=== PATIENT | male | born 1945 | race Caucasian/White ===

== ENCOUNTER 2020-06-30 09:53 | Outpatient (REF) | payer MEDICARE, SELFPAY ==
--- NOTE | 2020-06-30 09:53 | XR_ITS ---
EXAMINATION: XR PELVIS CLINICAL INFORMATION: Hip pain. COMPARISON: Pelvis of 01/08/2019 TECHNIQUE: AP film of the pelvis. FINDINGS: There is no evidence of acute fracture or diastasis of the pelvis. Patient is status post right total hip arthroplasty without abnormality of the prosthetic device seen and no evidence of loosening. There is severe degenerative change of the left hip with loss of hip joint space axially and inferiorly with collar spurring and subchondral cyst formation. No femoral head collapse is seen. No destructive lytic or sclerotic lesions noted. There is degenerative change of the lower lumbar spine present L4-L5 and L5-S1. No significant sacroiliac joint abnormality is appreciated. XR/XR pelvis 1-2V IMPRESSION: Status post right total hip arthroplasty without abnormality appreciated. Severe degenerative change of the left hip, as described.
== END 2020-06-30 09:54 | disposition home or self-care (01) ==
LOC: HO.HOSX 09:53
PROVIDERS: Visit Provider Orthopaedic Surgery
DX: M16.12 Unilateral primary osteoarthritis, left hip (principal); Z79.899 Other long term (current) drug therapy; Z96.641 Presence of right artificial hip joint
CPT/HCPCS: 72170; 99212

== ENCOUNTER 2020-07-11 07:38 | Outpatient (REF) | payer MEDICARE, SELFPAY ==
[2020-07-11 11:15] LABS: MANUAL DIFF FLAG NO
[2020-07-11 11:29] LABS: Basophils Absolute Auto 0.1 X10*3/uL (0.0-0.2); Basophils Percent Auto 0.8 % (0-2); Eosinophils Absolute Auto 0.2 X10*3/uL (0.0-0.4); Eosinophils Percent Auto 3.3 % (0-4); Hematocrit 41.5 % (42-52); Hemoglobin 13.2 g/dl (14.0-18.0); Imm Gran Abs Auto 0.01 X10*3/uL (0.00-0.03); Imm Gran Pct Auto 0.2 % (0.0-0.4); Lymphocytes Absolute Auto 1.9 X10*3/uL (1.2-4.9); Lymphocytes Percent Auto 30.6 % (20-40); Mean Corpuscular HGB Conc 31.8 g/dl (31.0-36.0); Mean Corpuscular Hemoglobin 29.9 pg (27.0-33.0); Mean Corpuscular Volume 94.1 fL (80-98); Mean Platelet Volume 11.7 fL (9.4-12.4); Monocytes Absolute Auto 0.5 X10*3/uL (0.1-1.2); Monocytes Percent Auto 7.7 % (2-11); Neutrophils Absolute Auto 3.5 X10*3/uL (2.0-8.3); Neutrophils Percent Auto 57.4 % (45-73); Platelet Count 217 X10*3/uL (160-400); Red Blood Count 4.41 X10*6/uL (4.60-5.80); Red Cell Distribution Width 13.2 % (11.0-16.0); White Blood Count 6.1 X10*3/uL (4.8-10.8)
[2020-07-11 11:35] LABS: Estimated Average Glucose 105 mg/dL; Hemoglobin A1c % 5.3 %
[2020-07-11 11:55] LABS: Glucose Urine UA NEG (NEG); Leukocyte Esterase Urine NEG (NEG); Nitrite Urine NEG (NEG); Specific Gravity - Urine 1.025 (1.005-1.025); Urine Blood NEG (NEG); Urine Ketones NEG (NEG); Urine Protein NEG (NEG-TRACE)
[2020-07-11 12:05] LABS: Appearance Urine CLEAR; Color Urine YELLOW
[2020-07-11 12:15] LABS: Alanine Aminotransferase 21 U/L (0-40); Albumin Level 4.3 g/dL (3.5-5.0); Alkaline Phosphatase 60 U/L (39-117); Anion Gap 14 (12-20); Aspartate Amino Transferase 18 U/L (5-37); Bilirubin Total 0.6 mg/dL (0.0-1.0); Blood Urea Nitrogen 18 mg/dL (9-16); Calcium 9.1 mg/dL (8.4-10.2); Carbon Dioxide 27 mmol/L (22-29); Chloride 105 mmol/L (96-108); Cholesterol 208 mg/dL; Estimated Glomerular Filt Rate > 60; Glucose Fasting 97 mg/dL (60-99); HDL Cholesterol 68 mg/dL; LDL Cholesterol Calculated 122 mg/dl; Potassium 4.7 mmol/l (3.3-5.1); Sodium 141 mmol/L (135-145); Total Protein 6.8 g/dL (6.5-8.0); Triglycerides 93 mg/dL; Uric Acid 6.4 mg/dL (3.4-7.0)
[2020-07-11 12:21] LABS: Folate 10.2 ng/mL (> or = 4.0); Vitamin B12 625 pg/mL (200-900)
[2020-07-11 12:32] LABS: Mucus Urine 1+ /LPF; RBC Urine 0 /HPF (0); Squamous Epithelial Cell Urine TRACE /LPF; WBC Urine 0-2 /HPF (0-4)
[2020-07-11 12:36] LABS: TSH reflex Free T4 1.73 mIU/mL (0.32-4.0)
[2020-07-11 12:39] LABS: Erythrocyte Sedimentation Rate 10 MM/HR (0-15)
== END 2020-07-11 07:39 | disposition home or self-care (01) ==
LOC: HO.HMGCLDS 07:38
PROVIDERS: PCP Internal Medicine; Visit Provider Internal Medicine
DX: E78.5 Hyperlipidemia, unspecified (principal); I10 Essential (primary) hypertension; R73.01 Impaired fasting glucose; M10.9 Gout, unspecified; G62.9 Polyneuropathy, unspecified; E53.8 Deficiency of other specified B group vitamins; D64.9 Anemia, unspecified; F17.200 Nicotine dependence, unspecified, uncomplicated; M51.36 Other intervertebral disc degeneration, lumbar region; E66.9 Obesity, unspecified
CPT/HCPCS: 36415; 80053; 80061; 81001; 82607; 82746; 83036; 84443; 84550; 85025; 85652

== ENCOUNTER 2020-08-31 | Outpatient (REF) | payer MEDICARE, SELFPAY | END 2020-08-31 00:01 | disposition home or self-care (01) | LOC: HO.VC | PROVIDERS: Visit Provider Internal Medicine | DX: Z23 Encounter for immunization (principal) | CPT/HCPCS: 0011A ==

== ENCOUNTER 2020-09-27 | Outpatient (REF) | payer MEDICARE, SELFPAY | END 2020-09-27 00:01 | disposition home or self-care (01) | LOC: HO.VC | PROVIDERS: Visit Provider Internal Medicine | DX: Z23 Encounter for immunization (principal) | CPT/HCPCS: 0012A ==

== ENCOUNTER 2020-11-07 07:42 | Outpatient (REF) | payer MEDICARE, SELFPAY ==
[2020-11-07 11:16] LABS: MANUAL DIFF FLAG NO
[2020-11-07 11:34] LABS: Glucose Urine UA NEG (NEG); Leukocyte Esterase Urine NEG (NEG); Nitrite Urine NEG (NEG); PH 5.5 (5.0-8.0); Specific Gravity - Urine 1.025 (1.005-1.025); Urine Blood NEG (NEG); Urine Ketones NEG (NEG); Urine Protein NEG (NEG-TRACE)
[2020-11-07 11:39] LABS: Appearance Urine CLEAR; Color Urine YELLOW
[2020-11-07 11:42] LABS: Basophils Absolute Auto 0.1 X10*3/uL (0.0-0.2); Basophils Percent Auto 0.8 % (0-2); Eosinophils Absolute Auto 0.2 X10*3/uL (0.0-0.4); Hematocrit 42.2 % (42-52); Hemoglobin 13.7 g/dl (14.0-18.0); Imm Gran Abs Auto 0.01 X10*3/uL (0.00-0.03); Imm Gran Pct Auto 0.2 % (0.0-0.4); Lymphocytes Absolute Auto 2.1 X10*3/uL (1.2-4.9); Mean Corpuscular HGB Conc 32.5 g/dl (31.0-36.0); Mean Corpuscular Hemoglobin 30.6 pg (27.0-33.0); Mean Corpuscular Volume 94.2 fL (80-98); Mean Platelet Volume 11.6 fL (9.4-12.4); Monocytes Absolute Auto 0.5 X10*3/uL (0.1-1.2); Monocytes Percent Auto 8.9 % (2-11); Neutrophils Absolute Auto 3.2 X10*3/uL (2.0-8.3); Neutrophils Percent Auto 53.1 % (45-73); Platelet Count 216 X10*3/uL (160-400); Red Blood Count 4.48 X10*6/uL (4.60-5.80); Red Cell Distribution Width 12.8 % (11.0-16.0); White Blood Count 6.1 X10*3/uL (4.8-10.8)
[2020-11-07 11:47] LABS: Alanine Aminotransferase 22 U/L (0-40); Albumin Level 4.5 g/dL (3.5-5.0); Alkaline Phosphatase 63 U/L (39-117); Anion Gap 16 (12-20); Aspartate Amino Transferase 18 U/L (5-37); Bilirubin Total 0.7 mg/dL (0.0-1.0); Blood Urea Nitrogen 25 mg/dL (9-16); Calcium 9.1 mg/dL (8.4-10.2); Carbon Dioxide 23 mmol/L (22-29); Chloride 108 mmol/L (96-108); Cholesterol 234 mg/dL; Estimated Glomerular Filt Rate > 60; Glucose Fasting 101 mg/dL (60-99); HDL Cholesterol 63 mg/dL; LDL Cholesterol Calculated 147 mg/dl; Potassium 4.7 mmol/L (3.3-5.1); Sodium 142 mmol/L (135-145); Total Protein 7.2 g/dL (6.5-8.0); Triglycerides 123 mg/dL; Uric Acid 7.1 mg/dL (3.4-7.0)
== END 2020-11-07 07:43 | disposition home or self-care (01) ==
LOC: HO.HMGCLDS 07:42
PROVIDERS: PCP Internal Medicine; Visit Provider Internal Medicine
DX: I10 Essential (primary) hypertension (principal); M10.9 Gout, unspecified; E66.9 Obesity, unspecified; R73.01 Impaired fasting glucose; E78.00 Pure hypercholesterolemia, unspecified; D64.9 Anemia, unspecified; G62.9 Polyneuropathy, unspecified; F17.200 Nicotine dependence, unspecified, uncomplicated
CPT/HCPCS: 36415; 80053; 80061; 81003; 84443; 84550; 85025

== ENCOUNTER 2021-05-16 07:25 | Outpatient (REF) | payer MEDICARE, SELFPAY ==
[2021-05-16 11:43] LABS: MANUAL DIFF FLAG NO
[2021-05-16 11:47] LABS: Basophils Absolute Auto 0.1 X10*3/uL (0.0-0.2); Basophils Percent Auto 0.9 % (0-2); Eosinophils Absolute Auto 0.2 X10*3/uL (0.0-0.4); Eosinophils Percent Auto 3.3 % (0-4); Hematocrit 40.1 % (42-52); Hemoglobin 13.2 g/dl (14.0-18.0); Imm Gran Abs Auto 0.02 X10*3/uL (0.00-0.03); Imm Gran Pct Auto 0.4 % (0.0-0.4); Lymphocytes Absolute Auto 1.6 X10*3/uL (1.2-4.9); Lymphocytes Percent Auto 29.1 % (20-40); Mean Corpuscular HGB Conc 32.9 g/dl (31.0-36.0); Mean Corpuscular Hemoglobin 30.3 pg (27.0-33.0); Mean Corpuscular Volume 92.2 fL (80-98); Mean Platelet Volume 11.8 fL (9.4-12.4); Monocytes Absolute Auto 0.5 X10*3/uL (0.1-1.2); Monocytes Percent Auto 8.5 % (2-11); Neutrophils Absolute Auto 3.2 X10*3/uL (2.0-8.3); Neutrophils Percent Auto 57.8 % (45-73); Platelet Count 204 X10*3/uL (160-400); Red Blood Count 4.35 X10*6/uL (4.60-5.80); Red Cell Distribution Width 12.9 % (11.0-16.0); White Blood Count 5.5 X10*3/uL (4.8-10.8)
[2021-05-16 12:05] LABS: Appearance Urine CLEAR; Color Urine YELLOW; Glucose Urine UA NEG (NEG); Leukocyte Esterase Urine NEG (NEG); Nitrite Urine NEG (NEG); Specific Gravity - Urine 1.025 (1.005-1.025); UACC Culture Trigger NO; Urine Blood 3+ (NEG); Urine Ketones NEG (NEG); Urine Protein NEG (NEG-TRACE)
[2021-05-16 12:07] LABS: Estimated Average Glucose 103 mg/dL; Hemoglobin A1c % 5.2 %
[2021-05-16 12:24] LABS: TSH reflex Free T4 2.32 uIU/mL (0.32-4.0)
[2021-05-16 12:28] LABS: Mucus Urine 2+ /LPF; Squamous Epithelial Cell Urine TRACE /LPF; WBC Urine 0 /HPF (0-4)
[2021-05-16 12:30] LABS: Alanine Aminotransferase 21 U/L (0-40); Albumin Level 4.5 g/dL (3.5-5.0); Alkaline Phosphatase 58 U/L (39-117); Anion Gap 12 (12-20); Aspartate Amino Transferase 22 U/L (5-37); Bilirubin Total 0.6 mg/dL (0.0-1.0); Blood Urea Nitrogen 22 mg/dL (9-16); Calcium 9.5 mg/dL (8.4-10.2); Carbon Dioxide 25 mmol/L (22-29); Chloride 111 mmol/L (96-108); Cholesterol 196 mg/dL; Estimated Glomerular Filt Rate > 60; Glucose Fasting 102 mg/dL (60-99); HDL Cholesterol 55 mg/dL; LDL Cholesterol Calculated 125 mg/dl; Potassium 4.5 mmol/L (3.3-5.1); Sodium 143 mmol/L (135-145); Total Protein 6.8 g/dL (6.5-8.0); Triglycerides 82 mg/dL; Uric Acid 6.7 mg/dL (3.4-7.0)
[2021-05-16 12:38] LABS: Folate 11.8 ng/mL (> or = 4.0); Vitamin B12 803 pg/mL (200-900)
== END 2021-05-16 07:26 | disposition home or self-care (01) ==
LOC: HO.HMGCLDS 07:25
PROVIDERS: PCP Internal Medicine; Visit Provider Internal Medicine
DX: R73.01 Impaired fasting glucose (principal); D64.9 Anemia, unspecified; F17.200 Nicotine dependence, unspecified, uncomplicated; I10 Essential (primary) hypertension; E78.00 Pure hypercholesterolemia, unspecified; E66.9 Obesity, unspecified; G62.9 Polyneuropathy, unspecified; M10.9 Gout, unspecified
CPT/HCPCS: 36415; 80053; 80061; 81001; 81003; 82607; 82746; 83036; 84443; 84550; 85025

== ENCOUNTER 2021-08-07 10:38 | Outpatient (REF) | payer MEDICARE, SELFPAY ==
--- NOTE | ~2021-08-07 | XR_ITS ---
EXAMINATION: LEFT KNEE AND LEFT LOWER LEG X-RAY CLINICAL INFORMATION: Pain COMPARISON: None TECHNIQUE: 4 views of the left knee and 2 views of the left lower lobe thick FINDINGS: Left knee: Bone alignment is normal. No fracture or dislocation is seen. There is arthritis at the medial femoral tibial and patellofemoral joints with joint space narrowing and osteophyte formation. There is a small joint effusion. Left lower leg: Bone alignment is normal. No fracture or dislocation is seen. Joint spaces are normal. Soft tissues are normal. XR/XR tibia fibula LT 2V IMPRESSION: Left knee: Mild degenerative changes. Left lower leg: Unremarkable exam.
--- NOTE | ~2021-08-07 | XR_ITS ---
EXAMINATION: LEFT KNEE AND LEFT LOWER LEG X-RAY CLINICAL INFORMATION: Pain COMPARISON: None TECHNIQUE: 4 views of the left knee and 2 views of the left lower lobe thick FINDINGS: Left knee: Bone alignment is normal. No fracture or dislocation is seen. There is arthritis at the medial femoral tibial and patellofemoral joints with joint space narrowing and osteophyte formation. There is a small joint effusion. Left lower leg: Bone alignment is normal. No fracture or dislocation is seen. Joint spaces are normal. Soft tissues are normal. XR/XR knee LT 4V IMPRESSION: Left knee: Mild degenerative changes. Left lower leg: Unremarkable exam.
== END 2021-08-07 10:39 | disposition home or self-care (01) ==
LOC: HO.HMGCX 10:38
PROVIDERS: PCP Internal Medicine; Visit Provider Internal Medicine
DX: M25.562 Pain in left knee (principal); M79.605 Pain in left leg
CPT/HCPCS: 73564; 73590

== ENCOUNTER 2021-11-23 07:15 | Outpatient (REF) | payer MEDICARE, SELFPAY ==
[2021-11-23 11:22] LABS: MANUAL DIFF FLAG NO
[2021-11-23 11:37] LABS: Basophils Percent Auto 0.7 % (0-2); Eosinophils Absolute Auto 0.2 X10*3/uL (0.0-0.4); Eosinophils Percent Auto 3.7 % (0-4); Hematocrit 39.4 % (42.0-52.0); Hemoglobin 12.8 g/dl (14.0-18.0); Imm Gran Abs Auto 0.01 X10*3/uL (0.00-0.03); Imm Gran Pct Auto 0.2 % (0.0-0.4); Lymphocytes Absolute Auto 1.9 X10*3/uL (1.2-4.9); Lymphocytes Percent Auto 35.2 % (20-40); Mean Corpuscular HGB Conc 32.5 g/dl (31.0-36.0); Mean Corpuscular Hemoglobin 29.8 pg (27.0-33.0); Mean Corpuscular Volume 91.8 fL (80.0-98.0); Mean Platelet Volume 11.8 fL (9.4-12.4); Monocytes Absolute Auto 0.4 X10*3/uL (0.1-1.2); Monocytes Percent Auto 6.8 % (2-11); Neutrophils Absolute Auto 2.9 x10*3/uL (2.0-8.3); Neutrophils Percent Auto 53.4 % (45-73); Platelet Count 190 X10*3/uL (160-400); Red Blood Count 4.29 X10*6/uL (4.60-5.80); Red Cell Distribution Width 12.7 % (11.0-16.0); White Blood Count 5.4 X10*3/uL (4.8-10.8)
[2021-11-23 11:41] LABS: Estimated Average Glucose 111 mg/dL; Hemoglobin A1c % 5.5 %
[2021-11-23 12:00] LABS: Alanine Aminotransferase 21 U/L (0-40); Albumin Level 4.3 g/dL (3.5-5.0); Alkaline Phosphatase 58 U/L (39-117); Anion Gap 13 (12-20); Aspartate Amino Transferase 20 U/L (5-37); Bilirubin Total 0.8 mg/dL (0.0-1.0); Blood Urea Nitrogen 23 mg/dL (9-16); Calcium 9.4 mg/dL (8.4-10.2); Carbon Dioxide 24 mmol/L (22-29); Chloride 109 mmol/L (96-108); Cholesterol 186 mg/dL; Estimated Glomerular Filt Rate > 60; Glucose Fasting 110 mg/dL (60-99); HDL Cholesterol 48 mg/dL; LDL Cholesterol Calculated 121 mg/dl; Potassium 4.6 mmol/L (3.3-5.1); Sodium 141 mmol/L (135-145); Total Protein 6.7 g/dL (6.5-8.0); Triglycerides 89 mg/dL; Uric Acid 6.5 mg/dL (3.4-7.0)
[2021-11-23 12:23] LABS: TSH reflex Free T4 1.85 uIU/mL (0.32-4.0); Vitamin D 25-OH Total 15.2 ng/mL (>30)
[2021-11-23 12:30] LABS: Appearance Urine CLEAR; Color Urine YELLOW; Glucose Urine UA NEG (NEG); Leukocyte Esterase Urine NEG (NEG); Nitrite Urine NEG (NEG); Specific Gravity - Urine 1.025 (1.005-1.025); UACC Culture Trigger NO; Urine Blood 1+ (NEG); Urine Ketones NEG (NEG); Urine Protein NEG (NEG-TRACE)
[2021-11-23 13:11] LABS: Squamous Epithelial Cell Urine TRACE /LPF
[2021-11-23 13:12] LABS: Mucus Urine 1+ /LPF; WBC Urine 0-2 /HPF (0-4)
== END 2021-11-23 07:16 | disposition home or self-care (01) ==
LOC: HO.HMGCLDS 07:15
PROVIDERS: Visit Provider Internal Medicine
DX: I10 Essential (primary) hypertension (principal); E78.00 Pure hypercholesterolemia, unspecified; R73.01 Impaired fasting glucose; M10.9 Gout, unspecified; E55.9 Vitamin D deficiency, unspecified
CPT/HCPCS: 36415; 80053; 80061; 81001; 81003; 82306; 83036; 84443; 84550; 85025

== ENCOUNTER 2021-11-30 10:18 | Outpatient (REF) | payer MEDICARE, SELFPAY ==
--- NOTE | ~2021-11-30 | XR_ITS ---
EXAMINATION: XR CHEST CLINICAL INFORMATION: Cough. COMPARISON: None TECHNIQUE: 2 views of the chest were obtained. FINDINGS: The lungs are well-expanded with platelike atelectasis in lingula. Rest of the lungs are clear. Heart size and pulmonary vascularity is normal. There is mild spondylosis dorsal spine with mild levoscoliosis. XR/XR chest 2V IMPRESSION: Platelike atelectasis in the lingula.
== END 2021-11-30 10:19 | disposition home or self-care (01) ==
LOC: HO.HMGCX 10:18
PROVIDERS: Visit Provider Nurse Practitioner Family
DX: R05.8 Other specified cough (principal)
CPT/HCPCS: 71046

== ENCOUNTER 2021-12-14 07:28 | Outpatient (REF) | payer MEDICARE, SELFPAY ==
--- NOTE | ~2021-12-14 | XR_ITS ---
EXAMINATION: XR PELVIS CLINICAL INFORMATION: M25.559 - Pain in unspecified hip COMPARISON: Radiographs pelvis 06/30/2020 TECHNIQUE: AP view of the pelvis is performed along with AP view right hip for a total of 2 views. FINDINGS: There is no fracture or dislocation or bony destructive process. Again, there are degenerative disc changes lower lumbar spine at L4-L5 with bulky right lateral bridging osteophyte. There are also disc changes L5-S1 and mild degenerative changes bilateral SI joints. There is no diastases SI joints or pubis. Left hip shows osteoarthritic changes with axial narrowing and subchondral sclerosis and osteophytes circumferentially at base femoral head and osteophytes acetabular rim. There is right hip replacement. Hardware intact. No osteolysis or destructive process. There are multiple calcified phleboliths again seen pelvis. Bowel gas unremarkable. XR/XR pelvis 1-2V IMPRESSION: -Degenerative disc changes lower lumbar spine and lumbosacral junction. -Prominent osteoarthritis left hip. -Unremarkable right hip replacement.
== END 2021-12-14 07:29 | disposition home or self-care (01) ==
LOC: HO.HOSX 07:28
PROVIDERS: Visit Provider Orthopaedic Surgery
DX: M16.12 Unilateral primary osteoarthritis, left hip (principal); M47.816 Spondylosis without myelopathy or radiculopathy, lumbar region
CPT/HCPCS: 72170; 99212

== ENCOUNTER 2022-02-07 08:00 | Outpatient (RCR) | payer MEDICARE, SELFPAY ==
--- NOTE | 2022-01-10 11:56 | MHC.PT.EP ---
[facility] [place] Office [place] Office [place] Office [address] [phone] F: [phone] F: [phone] F: [phone] F: [phone] Physical Therapy Plan of Care Date of Evaluation: Date of Surgery: Diagnosis: This is a 76 yo male presenting to skilled PT with a script for lumbar spondylosis, L hip pain Assessment: This is a 76 yo male presenting to skilled PT with a script for lumbar spondylosis, L hip pain. I am here because my doctor suggested it. L hip pain ongoing for about a year. Per patient he is probably getting a total hip replacement done. Being seen by [facility]. Pain increases with walking. He can walk for about 10-15 mins. Pain is achy and located lateral. He also reports scoliosis and anterior flor pain on the L as well. He has had a R total hip replacement about 5 years ago. He is supposed to be going to pain management as well. Assessment reveals pain that ranges up to a 8/10. He demos decreased ROM, decreased strength, impaired gait pattern and walking tolerance as well as gross functional decline with walking and standing. He is a good candidate for skilled PT 2x/wk for 4wks however wants to come to 1-2 appointments only. 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 Manual therapy to restore motion and function. Therapeutic exercise to improve strength and flexibility. Neuromuscular re-education for posture and balance. Therapeutic activities to return to functional activities of daily living. Electronically signed by: Adore Gold PT Please sign and return to therapist. Thank you for your referral.
--- NOTE | 2022-03-21 11:48 | MHC.PT.DC ---
[facility] [place] Office [place] Office [place] Office [address] [phone] F: [phone] F: [phone] F: [phone] F: [phone] Physical Therapy Discharge Report Diagnosis: This is a 76 yo male presenting to skilled PT with a script for lumbar spondylosis, L hip pain Date of Surgery: Date of Evaluation: 01/10/22 Date of Discharge: Treatments to Date: 4 Cancellations to Date: 0 No Shows to Date: 0 Discharge Status: Achieved Goals Independent with HEP Patient Elected to Stop Discharge Summary: Pt is I and compliant with HEP. Pain with amb is 6/10. He is happy with HEP and ready for d/c at this time. He notes change is minimal thus far but understands the intermediate benefits of HEP. d/c to hep at this time. Electronically signed by: Adore Gold PT Please sign and return to therapist. Thank you for your referral.
== END 2022-03-21 11:48 | disposition home or self-care (01) ==
LOC: HO.PTCHIC 08:00
PROVIDERS: PCP Internal Medicine; Visit Provider Orthopaedic Surgery
DX: M16.12 Unilateral primary osteoarthritis, left hip (principal); M47.819 Spondylosis without myelopathy or radiculopathy, site unspecified
CPT/HCPCS: 97110; 97162

== ENCOUNTER → 2022-03-16 09:19 | Outpatient (BNVA) | payer MEDICARE, SELFPAY | PROVIDERS: PCP Internal Medicine; Visit Provider Orthopaedic Surgery | DX: M16.12 Unilateral primary osteoarthritis, left hip (principal) | CPT/HCPCS: 99212 ==

== ENCOUNTER 2022-04-19 06:58 | Outpatient (REF) | payer MEDICARE, SELFPAY ==
[2022-04-19 11:15] LABS: MANUAL DIFF FLAG NO
[2022-04-19 11:24] LABS: Appearance Urine Clear; Color Urine Yellow; Glucose Urine UA Negative (Negative); Leukocyte Esterase Urine Negative (Negative); Nitrite Urine Negative (Negative); PH 6.5 (5.0-9.0); Urine Blood Negative (Negative); Urine Ketones Negative (Negative); Urine Protein Negative (Neg-Trace)
[2022-04-19 11:28] LABS: Basophils Absolute Auto 0.1 X10*3/uL (0.0-0.2); Basophils Percent Auto 0.9 % (0-2); Eosinophils Absolute Auto 0.2 X10*3/uL (0.0-0.4); Eosinophils Percent Auto 4.2 % (0-4); Hematocrit 39.8 % (42.0-52.0); Hemoglobin 13.2 g/dl (14.0-18.0); Imm Gran Abs Auto 0.01 X10*3/uL (0.00-0.03); Imm Gran Pct Auto 0.2 % (0.0-0.4); Lymphocytes Absolute Auto 1.8 X10*3/uL (1.2-4.9); Lymphocytes Percent Auto 31.6 % (20-40); Mean Corpuscular HGB Conc 33.2 g/dl (31.0-36.0); Mean Corpuscular Hemoglobin 30.5 pg (27.0-33.0); Mean Corpuscular Volume 91.9 fL (80.0-98.0); Mean Platelet Volume 11.2 fL (9.4-12.4); Monocytes Absolute Auto 0.5 X10*3/uL (0.1-1.2); Monocytes Percent Auto 7.8 % (2-11); Neutrophils Absolute Auto 3.2 x10*3/uL (2.0-8.3); Neutrophils Percent Auto 55.3 % (45-73); Platelet Count 212 X10*3/uL (160-400); Red Blood Count 4.33 X10*6/uL (4.60-5.80); Red Cell Distribution Width 12.8 % (11.0-16.0); White Blood Count 5.8 X10*3/uL (4.8-10.8)
[2022-04-19 11:31] LABS: Estimated Average Glucose 108 mg/dL; Hemoglobin A1c % 5.4 %
[2022-04-19 11:40] LABS: Alanine Aminotransferase 20 U/L (0-40); Albumin Level 4.3 g/dL (3.5-5.0); Alkaline Phosphatase 71 U/L (39-117); Anion Gap 14 (12-20); Aspartate Amino Transferase 21 U/L (5-37); Bilirubin Total 0.7 mg/dL (0.0-1.0); Blood Urea Nitrogen 27 mg/dL (9-16); Calcium 9.4 mg/dL (8.4-10.2); Carbon Dioxide 25 mmol/L (22-29); Chloride 108 mmol/L (96-108); Cholesterol 204 mg/dL; Estimated Glomerular Filt Rate > 60; Glucose Fasting 93 mg/dL (60-99); HDL Cholesterol 58 mg/dL; LDL Cholesterol Calculated 130 mg/dl; Sodium 142 mmol/L (135-145); Total Protein 6.8 g/dL (6.5-8.0); Triglycerides 80 mg/dL
[2022-04-19 12:08] LABS: TSH reflex Free T4 1.92 uIU/mL (0.32-4.0); Vitamin D 25-OH Total 22.8 ng/mL (>30)
== END 2022-04-19 06:59 | disposition home or self-care (01) ==
LOC: HO.HMGCLDS 06:58
PROVIDERS: PCP Internal Medicine; Visit Provider Internal Medicine
DX: M10.9 Gout, unspecified (principal); E78.00 Pure hypercholesterolemia, unspecified; E55.9 Vitamin D deficiency, unspecified; R73.01 Impaired fasting glucose; I10 Essential (primary) hypertension
CPT/HCPCS: 36415; 80053; 80061; 81003; 82306; 83036; 84443; 84550; 85025

== ENCOUNTER 2022-04-25 13:25 | Outpatient (REF) | payer MEDICARE, SELFPAY ==
--- NOTE | ~2022-04-25 | XR_ITS ---
EXAMINATION: XR SHOULDER, RIGHT CLINICAL INFORMATION: Right shoulder pain. COMPARISON: None TECHNIQUE: AP external rotation, Grashey, scapular Y, and axillary views of the right shoulder. FINDINGS: Prominent acromioclavicular marginal osteophytes. Small subacromial spurs. Severe glenohumeral joint space narrowing with mild bony remodeling. Marginal osteophytes and subchondral sclerosis. Calcification adjacent to the greater tuberosity measuring 0.5 cm, consistent with infraspinatus calcific tendinitis. XR/XR shoulder RT min 2V IMPRESSION: 1. Severe glenohumeral osteoarthritis. 2. Moderate acromioclavicular osteoarthritis with small subacromial spurs. 3. Mild distal infraspinatus calcific tendinitis.
--- NOTE | ~2022-04-25 | XR_ITS ---
EXAMINATION: XR CERVICAL SPINE CLINICAL INFORMATION: Neck pain. COMPARISON: None TECHNIQUE: 3 views of the cervical spine were obtained. FINDINGS: No acute fracture or subluxation. Normal vertebral body alignment. The cervical lordosis is maintained. No loss of vertebral body height. Multilevel loss of intervertebral disc height with anterior endplate osteophytes, most prominent at C5-C6 and C6-C7. Multilevel bilateral facet arthropathy. Normal atlantoaxial alignment. Unremarkable prevertebral soft tissues. XR/XR cervical spine 3V IMPRESSION: Multilevel degenerative disc disease and bilateral facet arthropathy, most prominent at C5-C6 and C6-C7.
== END 2022-04-25 13:26 | disposition home or self-care (01) ==
LOC: HO.XRAY 13:25
PROVIDERS: PCP Internal Medicine; Visit Provider Internal Medicine
DX: M25.511 Pain in right shoulder (principal); M54.2 Cervicalgia
CPT/HCPCS: 72040; 73030

== ENCOUNTER → 2022-06-04 06:53 | Outpatient (REF) | payer MEDICARE, SELFPAY ==
--- NOTE | 2022-06-04 06:54 | CA_ITS ---
Transthoracic Echocardiogram Patient (Last, First, Middle): George Borges R Gender: Male Date of : 1945 Age: 77 Procedure Date: 06/04/2022 Procedure Type: Transthoracic Echocardiogram Location: OP Height: 190.5 cm Weight: 115.67 kg BSA: 2.43 m2 Heart Rate: bpm BP: 124 / 70 mmHg Nickel Plater: Referring MD: Eugenie RED Digital Marketing Coordinator: Silas Edwards MD Symptoms: Z01.818 - Encounter for other preprocedural examination Study Quality: Fair/Contrast ECG Rhythm: Sinus Conclusions: - 1. [id number] LV systolic dysfunction with LVEF of 40-45% with grade 1 diastolic dysfunction 2. Normal cardiac valvular Doppler 3. Normal RV systolic pressure 4. No gross pericardial effusion Findings Procedure Information Contrast agent, definity, is being given per protocol without apparent complications. Left Ventricle Normal left ventricular cavity size. There is normal left ventricular wall thickness. The left ventricular systolic function is mild to moderately decreased. The visually estimated ejection fraction is between 40-45%. Spectral Doppler is indicative of an impaired relaxation filling pattern. E/E prime ratio is <8, consistent with normal filling pressures. Evidence suggests grade I (mild) diastolic dysfunction. Right Ventricle Mildly increased right ventricular cavity size. Atria The left atrium is likely dilated. Interatrial shunt cannot be excluded. The right atrium was not well visualized. Aortic Valve The aortic valve was not well visualized. There is mild calcification of the aortic valve. There is no aortic valve stenosis. There is no aortic valve regurgitation. Mitral Valve Likely normal mitral valve structure and function. There is trace mitral valve regurgitation. There is no mitral valve stenosis. Pulmonic Valve The pulmonic valve was not well visualized. Tricuspid Valve Likely normal tricuspid valve structure and function. There is no tricuspid valve regurgitation. The right ventricular systolic pressure is 18 mmHg. Normal right atrial pressure. There is no evidence of pulmonary hypertension. Great Vessels All visible segments of the aorta are normal in size. The pulmonary artery was not well visualized. Venous The inferior vena cava is normal in size and collapses greater than 50% with inspiration. Pericardium/Pleural There is no evidence of pericardial effusion. Prior Study Comparison No prior study available for comparison. Measurements 2D Linear Measurements IVSd: 1.12 0.6-0.9/0.6-1.0 cm LVIDd: 5.16 3.9-5.3/4.2-5.9 cm LVIDd Index: 2.12 2.4-3.2/2.2-3.1 cm/m2 LVIDs: 3.72 2.0-3.6 cm LVPWd: 1.18 0.7-1.1 cm Ao Root: 3.70 2.1-3.5 cm LA Diam: 3.80 2.7-3.8/3.0-4.0 cm LAIDs Index: 1.56 1.5-2.3 cm/m2 LV Mass: 288.88 67-162/88-224 g LV Mass Index: 118.88 43-95/49-115 g/m2 LVOT Diam: 2.60 3.0+(-)1.3 cm 2D Systolic Function EF 4C: 41.10 >55% EF 2C: 47.60 >55% EF BiP: 44.60 >55% Mitral Valve MV Pk E: 0.51 MV PK A: 0.75 MV Decel Time: 149.00 E/A: 0.70 E'Lateral: 4.79 E'Medial: 5.98 E/E' Med: 8.50 E/E' Lat: 10.60 PHT: 44.00 MVA PHT: 5.00 Decel Hamblen: 3.39 Aortic Valve AoV Pk Kelechi: 1.67 AoV Mn Kelechi: 1.19 AoV VTI: 0.36 AoV Pk Grad: 11.00 Aov Mn Grad: 7.00 TAYE Cont.VTI: 2.77 LVOT LVOT Pk Kelechi: 0.91 LVOT Mn Kelechi: 0.62 LVOT VTI: 0.19 LVOT Pk Grad: 3.00 LVOT Mn Grad: 2.00 LVOT Diam: 2.60 LVOT Area: 5.31 Diastolic Function MV Pk E: 0.51 MV Pk A: 0.75 E/A: 0.70 E'Medial: 5.98 E/E' Med: 8.50 E' Laterial: 4.79 E/E' Lat: 10.60 Right Ventricle TAPSE (mm): 19.00 TVS' Kelechi: 12.00 Tricuspid Valve TR Pk Kelechi: 1.93 TR Pk Grad: 15.00 RA Press: 3.00 RVSP: 18.00 Great Vessels Aorta Ao Root-2D: 3.70 2.0-3.7 cm Ao Asc: 3.40 2.1-3.4 cm Pulmonary Valve PV Pk Kelechi: 0.92 Peak PV Grad: 3.00 Updated in Other Vendor System with Status of Final Silas Edwards MD electronically signed on 06/04/2022 1:42:23 PM with status of Final
== END ==
LOC: HO.CARD 06:53
PROVIDERS: PCP Internal Medicine; Visit Provider Nurse Practitioner Family
DX: Z01.818 Encounter for other preprocedural examination (principal)
CPT/HCPCS: 93306; Q9957

== ENCOUNTER → 2022-06-11 13:18 | Outpatient (BNVA) | payer MEDICARE, SELFPAY | PROVIDERS: PCP Internal Medicine; Visit Provider Internal Medicine Cardiovascular Disease | DX: I42.9 Cardiomyopathy, unspecified (principal) | CPT/HCPCS: 99202 ==

== ENCOUNTER → 2022-06-15 10:45 | Outpatient (REF) | payer MEDICARE, SELFPAY ==
--- NOTE | 2022-06-15 10:48 | CA_ITS ---
Acquisition Time: 2022-06-15 10:57:13 Total Exercise Time: 00:04:30 Test Indications: Abnormal ECG Medications: ALLOPURINOL AMLODIPINE CELICOXIB IRBESARTAN Protocol: DOV Max HR: 150 BPM 104% of Pred: 143 BPM Max BP: 160/070 mmHG Max Work Load: 5.4 METS Exercise stress test with exercise 4 min 30 sec of Dov protocol, achieving > 100% MPHR, with mild sob, no chest discomfort, without PACs, then irregular tachycardic rhythm which appears to be PAF Vs freq PACs, with normotensive response to exercise, without EKG changes meeting criteria for ischemia. Echo images obtained by tech at rest and immediately post peak exercise. Definity contrast used. In recovery monitor continued to show irregular heart beats, asymptomatic. Once heart rate settled, it was clearly SR. Test reviewed with Dr Edwards STRESS ECHO : Technique : Images were obtained at rest and immediately post exercise within 50 seconds. Definity contrast was used to enhance endocardial definition. Images were obtained in multiple views and compared side to side. Findings : Images at rest were of borderline quality due to some off axis views. LV systolic function is mildly reduced on some views without any regional wall motion abnormalities. Post exercise HR reduced quickly in early recovery. Post exercise images are of adequate quality. Overall there is adequate augmentation of LV systolic function. There are no regional wall motion abnormalities. Conclusion : Stress echo is negative for ischemia at achieved HR and workload. Referred By: Shayne Hunter Overread By: MONIQUE EDWARDS MD
--- NOTE | 2022-06-15 12:40 | HM_ITS ---
Conclusion: 1. Patient was monitored for total period of 2 days and 22 hours 2. Baseline rhythm appears to be sinus rhythm but on some strips underlying atrial flutter/fibrillation cannot be ruled out 3. No significant pauses or bradycardia noted 4. Total of 19,726 PACs accounting for 5.6% of total beats accounting for frequent PACs 5. Patient reported event correlates with SVT/atrial flutter with 2 is to 1 conduction MTDD
== END ==
LOC: HO.CARD 10:45
PROVIDERS: PCP Internal Medicine; Visit Provider Internal Medicine Cardiovascular Disease
DX: I44.0 Atrioventricular block, first degree (principal); I49.1 Atrial premature depolarization; I42.9 Cardiomyopathy, unspecified
CPT/HCPCS: 93242; 93350; Q9957

== ENCOUNTER 2022-06-20 11:26 | Outpatient (REF) | payer MEDICARE, SELFPAY ==
--- NOTE | ~2022-06-20 | XR_ITS ---
EXAMINATION: XR HIP, LEFT CLINICAL INFORMATION: Pain COMPARISON: Previous pelvis x-ray November 2021 TECHNIQUE: Two views of the left hip and one view of the pelvis. FINDINGS: There is severe left hip arthritis with joint space narrowing, osteophyte formation and subchondral cyst formation. There is a right hip replacement in satisfactory position. No fracture or dislocation. Bones of the pelvis are normal. There are degenerative changes of the visualized lower lumbar spine. There are calcified phleboliths in the pelvis. There is atherosclerotic disease. XR/XR hip LT w PEL1V IMPRESSION: Severe left hip arthritis.
== END 2022-06-20 11:27 | disposition home or self-care (01) ==
LOC: HO.HOSX 11:26
PROVIDERS: Visit Provider Physician Assistant
DX: Z01.818 Encounter for other preprocedural examination (principal); M16.12 Unilateral primary osteoarthritis, left hip
CPT/HCPCS: 73502; 99212

== ENCOUNTER 2022-06-26 06:10 | Inpatient (IN) | payer MEDICARE, SELFPAY ==
--- NOTE | 2022-05-23 10:45 | ECG_ITS ---
Test Reason : preop Blood Pressure : / mmHG Vent. Rate : 073 BPM Atrial Rate : 073 BPM P-R Int : 210 ms QRS Dur : 124 ms QT Int : 376 ms P-R-T Axes : 057 -58 016 degrees QTc Int : 414 ms Sinus rhythm with 1st degree A-V block Left anterior fascicular block Intra-ventricular conduction delay Abnormal ECG When compared with ECG of 15-NOV-2015 10:24, No significant change was found Referred By: Eugenie Blanco Electronically Signed By:VADIM DELGADO MD
[2022-05-23 10:49] LABS: Hematocrit 41.1 % (42.0-52.0); Hemoglobin 13.8 g/dl (14.0-18.0); Mean Corpuscular HGB Conc 33.6 g/dl (31.0-36.0); Mean Corpuscular Hemoglobin 31.2 pg (27.0-33.0); Mean Corpuscular Volume 92.8 fL (80.0-98.0); Platelet Count 201 X10*3/uL (160-400); Red Blood Count 4.43 X10*6/uL (4.60-5.80); Red Cell Distribution Width 13.2 % (11.0-16.0); White Blood Count 6.3 X10*3/uL (4.8-10.8)
[2022-05-23 10:55] LABS: Prothrombin Time 10.9 SEC (10.0-13.1)
[2022-05-23 11:20] LABS: Anion Gap 14 (12-20); Blood Urea Nitrogen 21 mg/dL (9-16); Calcium 9.9 mg/dL (8.4-10.2); Carbon Dioxide 26 mmol/L (22-29); Chloride 105 mmol/L (96-108); Estimated Glomerular Filt Rate > 60; Glucose Random 97 mg/dL (60-115); Potassium 5.1 mmol/L (3.3-5.1); Sodium 140 mmol/L (135-145)
[2022-05-23 11:45] LABS: TSH reflex Free T4 1.59 uIU/mL (0.32-4.0)
[2022-06-07 14:52] VITALS: BMI 31.8
[2022-06-18 11:17] VITALS: BP 140/80; PULSE 96; RESP 16; O2SAT 96; BMI 32.6
--- NOTE | 2022-06-18 11:46 | HO.ANESPROP2 ---
Documented by User: Macy Chaidez NP 06/25/22 08:30 HPI - Anesthesia Eval Consult details Narrative: 77yo M for Left Hip Total Replacement Cardiac cleared [facility] Active Problems Active Problems: All Active Problems (Updated 06/18/22 @ 11:42 by Ankita Nelson RN) Left leg pain (Acute) Isaac splint of left lower extremity (Acute) Productive cough (Acute) Chronic knee pain (Acute) Degenerative arthritis of knee (Acute) Vitamin D deficiency (Acute) Osteoarthritis of left hip (Acute) Arthritis, low back (Acute) Neck pain (Acute) Cervical strain (Acute) Preoperative clearance (Acute) 1st degree AV block (Acute) Cardiomyopathy (Acute) PAC (premature atrial contraction) (Acute) Osteoarthritis (Acute) Obesity (BMI 30-39.9) (Acute) Smoker (Acute) Peripheral polyneuropathy (Acute) Lumbar degenerative disc disease (Acute) Mild anemia (Acute) Gout (Acute) Osteoarthritis of hip (Acute) Impaired fasting glucose (Acute) Benign essential hypertension (Acute) Pure hypercholesterolemia (Acute) Past Medical History Medical History Benign essential hypertension Gout History of blood transfusion Impaired fasting glucose Lumbar degenerative disc disease Mild anemia Obesity (BMI 30-39.9) Osteoarthritis Osteoarthritis of hip Peripheral polyneuropathy Personal history of COVID-19 Primary osteoarthritis of left hip Pure hypercholesterolemia Smoker Family History Family History Father CVD (cardiovascular disease) Mother Stroke Cancer Brother Healthy adult Sister Healthy adult Family history of problems with anesthesia: No Surgical History Surgical History History of surgery History of total right hip arthroplasty Hx of colonoscopy History of Problems with Anesthesia: No Social History Social History Household Members: Spouse Housing: House Are you a primary daycare teacher to a significant other at home: No Do you presently have visiting nurse or other home services: No Alcohol intake: current Alcohol intake frequency: a few times a week Patient Tobacco Use Status: Current someday Tobacco user Tobacco use type: Cigar Smoked in Last 30 Days: No e-Cigarette/Vaping Use: Never Used Patient Interested in Nicotine Replacement: No Patient Given Instructions on How to Stop Smoking: No Second Hand Smoke Exposure: No Use of substances other than those prescribed or required for medical reasons: No Have you been hit, kicked, punched, or otherwise hurt by someone within the past year? If so, by whom?: No Do you feel safe in your current relationship?: Yes Is there a partner from a previous relationship who is making you feel unsafe now?: No Are you made to feel afraid or neglected: No Are you DNR?: No Advance Directives: Yes Advance Directives Information Provided: No Advance Directives on File: Yes Advance Directives Date on File: 12/14/15 Do you have thoughts of harming others: None Do you have a plan to hurt others: No Plan Recently lost weight without trying: No Nutrition Risks: No Nutritional Risk Poor oral hygiene: No ( fragile teeth nothing loose or removable per ) service: No Current occupational status: retired Cognitive needs: No Hearing needs: No Vision needs: No Narrative Narrative: COVID 04/3022 - No further symptoms at PAT No CP/SOB with yard work/golf Meds Allergies Allergy/AdvReac Type Severity Reaction Status Date / Time No Known Allergies Allergy Verified 06/26/22 06:34 Home Medications Medication Instructions Recorded Confirmed Last Taken Type cyanocobalamin (vitamin B-12) 1,000 mcg sublingual DAILY 06/07/22 06/26/22 06/25/22 History 1,000 mcg sublingual tablet Exam Exam Date and Time: June 18, 2022 1146 Height,Weight and Vital Signs: Height 6 ft 3 in Weight 118.4 kg Last Vital Signs Pulse 96 06/18/22 11:17 Resp 16 06/18/22 11:17 BP 140/80 H 06/18/22 11:17 Pulse Ox 96 06/18/22 11:17 O2 Del Method 06/18/22 11:17 Pertinent Lab Results Pertinent Lab Results: Laboratory Tests 05/23/22 05/23/22 05/23/22 10:43 10:43 10:43 WBC 6.3 RBC 4.43 L Hgb 13.8 L Hct 41.1 L MCV 92.8 MCH 31.2 MCHC 33.6 RDW 13.2 Plt Count 201 MPV 11.0 Absolute Nucleated RBC 0.000 Nucleated RBC % (auto) 0.0 PT 10.9 INR 1.0 Sodium 140 Potassium 5.1 Chloride 105 Carbon Dioxide 26 Anion Gap 14 BUN 21 H Creatinine 1.12 Estim Creat Clear Calc TNP Estimated GFR > 60 Random Glucose 97 Calcium 9.9 TSH 1.59 Narrative Narrative: EKG 04/2022 Vent. Rate : 073 BPM ? ? Atrial Rate : 073 BPM ?? P-R Int : 210 ms? QRS Dur : 124 ms ? ? QT Int : 376 ms ? ? ? P-R-T Axes : 057 -58 016 degrees ?? QTc Int : 414 ms ? Sinus rhythm with 1st degree A-V block Left anterior fascicular block Intra-ventricular conduction delay Abnormal ECG When compared with ECG of 15-NOV-2015 10:24, No significant change was found ECHO 05/2022 Conclusions: - 1. [id number] LV systolic dysfunction with LVEF of 40-45% with grade 1 diastolic dysfunction ? 2. Normal cardiac valvular Doppler ? 3. Normal RV systolic pressure ? 4. No gross pericardial effusion ?? Stress Echo 05/2022 Findings : ? Images at rest were of borderline quality due to some off axis views. LV systolic function is mildly reduced on some views? without any regional wall motion abnormalities. Post exercise HR reduced quickly in early recovery. Post exercise images are of adequate quality. Overall there is adequate? augmentation of LV systolic function. There are no regional wall motion abnormalities. ? Conclusion : ? Stress echo is negative for ischemia at achieved HR and workload. Airway Mallampati Class: III TM Dist: >3cm Neck ROM: Full (Some OA in right shoulder/neck) Loose/Missing/Broken Teeth: No (Crowned molars) Assessment and Plan Assessment Anesthesia Assessment: Anesthesia Plan Discussed, Smoking Cess. Discussed and PAT Visit Final Anesthetic Review Family History of Problems with Anesthesia: No History of Problems with Anesthesia: No Documented by User: Dwain Do MD 06/26/22 16:50 [facility] Past Medical History Medical History Benign essential hypertension Gout History of blood transfusion Impaired fasting glucose Lumbar degenerative disc disease Mild anemia Obesity (BMI 30-39.9) Osteoarthritis Osteoarthritis of hip Peripheral polyneuropathy Personal history of COVID-19 Primary osteoarthritis of left hip Pure hypercholesterolemia Smoker Family History Family History Father CVD (cardiovascular disease) Mother Stroke Cancer Brother Healthy adult Sister Healthy adult Surgical History Surgical History History of surgery History of total right hip arthroplasty Hx of colonoscopy Social History Social History Household Members: Spouse Housing: House Are you a primary daycare teacher to a significant other at home: No Do you presently have visiting nurse or other home services: No Alcohol intake: current Alcohol intake frequency: a few times a week Patient Tobacco Use Status: Current someday Tobacco user Tobacco use type: Cigar Smoked in Last 30 Days: No e-Cigarette/Vaping Use: Never Used Patient Interested in Nicotine Replacement: No Patient Given Instructions on How to Stop Smoking: No Second Hand Smoke Exposure: No Use of substances other than those prescribed or required for medical reasons: No Have you been hit, kicked, punched, or otherwise hurt by someone within the past year? If so, by whom?: No Do you feel safe in your current relationship?: Yes Is there a partner from a previous relationship who is making you feel unsafe now?: No Are you made to feel afraid or neglected: No Are you DNR?: No Advance Directives: Yes Advance Directives Information Provided: No Advance Directives on File: Yes Advance Directives Date on File: 12/14/15 Do you have thoughts of harming others: None Do you have a plan to hurt others: No Plan Recently lost weight without trying: No Nutrition Risks: No Nutritional Risk Poor oral hygiene: No ( fragile teeth nothing loose or removable per ) service: No Current occupational status: retired Cognitive needs: No Hearing needs: No Vision needs: No Meds Allergies Allergy/AdvReac Type Severity Reaction Status Date / Time No Known Allergies Allergy Verified 06/26/22 06:34 Home Medications Medication Instructions Recorded Confirmed Last Taken Type cyanocobalamin (vitamin B-12) 1,000 mcg sublingual DAILY 06/07/22 06/26/22 06/25/22 History 1,000 mcg sublingual tablet Exam Airway Loose/Missing/Broken Teeth: Yes (Chipped teeth ) Heart: S1,S2 Lungs: b/l breath sounds Assessment and Plan Assessment Anesthesia Assessment: Chart Reviewed Final Anesthetic Review NPO: Yes ASA Class: III Final Preanesthetic Review: Meds/Allgs Chart Reviewed, Consent Obtained/Reviewed and Anes Risks/Benef Reviewed Patient Risk: Intermediate Procedure Risk: Intermediate Anesthetic Plan Anesthetic Plan: GA Disposition: Inp. Admit - Standard Bed
[2022-06-18 13:48] LABS: MRSA Nasal PCR NEGATIVE (Negative); SA Nasal PCR NEGATIVE (Negative)
[2022-06-26] VITALS (18 sets, daily range): BP systolic 123–150; BP diastolic 61–82; PULSE 67–102; RESP 11–18; TEMP 36.3–37.7; O2SAT 92–100
--- NOTE | ~2022-06-26 | XR_ITS ---
EXAMINATION: XR PELVIS CLINICAL INFORMATION: Hip replacement COMPARISON: Previous x-ray 06/20/2022 TECHNIQUE: AP view of the pelvis. FINDINGS: There is a new left hip replacement in satisfactory position. No fracture or dislocation. Right hip replacement appears unchanged. Bones of the pelvis are unremarkable. There are postoperative changes to the soft tissues. XR/XR pelvis 1-2V IMPRESSION: Satisfactory appearance of left hip replacement. Satisfactory appearance of left hip replacement.
[2022-06-26 06:44] LABS: COVID-19 Test Negative (Negative); IDNOW Serial# BCCEAD1C
[2022-06-26] MEDS: oxyCODONE HCl ER 10 MG TAB.ER.12H PO ×2 (06:44→20:47)
[2022-06-26] MEDS: Lactated Ringers 1,000 ML 100 ML IVCONT ×3 (07:11→20:54)
--- NOTE | 2022-06-26 07:19 | ECG_ITS ---
Test Reason : preop Blood Pressure : / mmHG Vent. Rate : 095 BPM Atrial Rate : 095 BPM P-R Int : 224 ms QRS Dur : 124 ms QT Int : 364 ms P-R-T Axes : 000 -53 029 degrees QTc Int : 457 ms Sinus rhythm with 1st degree A-V block with Premature atrial complexes Left anterior fascicular block Incomplete left bundle branch block Abnormal ECG When compared with ECG of 23-MAY-2022 10:39, Premature atrial complexes are now Present Heart rate has increased Referred By: Dwain Do Electronically Signed By:VADIM DELGADO MD
--- NOTE | 2022-06-26 07:46 | MHC.SHP ---
Pre-Procedural Eval Section A Date of Service: 06/26/22 The patient is an INPATIENT: No Changes since office visit: Yes Patient answered all questions; No Cold of Flu in the past 2 weeks, No New Medical Problems and No Changes in Medication The History & Physical has been completed within 30 days and I have reviewed it.: Yes Section B Chief Complaint: LT CHETNA Allergies: Allergies Allergy/AdvReac Type Severity Reaction Status Date / Time No Known Allergies Allergy Verified 06/26/22 06:34 Plan I have reviewed the history and physical and performed a pertinent physical examination on my patient. No changes have occurred unless specified.
[2022-06-26] MEDS: ceFAZolin Sodium/Dextrose,Iso 2 GM/50 ML PIGGYBACK IV ×2 (07:57→14:36)
[2022-06-26] MEDS: Acetaminophen 1,000 MG/100 ML PIGGYBACK 400 MG IV (09:40)
--- NOTE | 2022-06-26 10:30 | P.BOP_ITS ---
Brief Operative Note Date of Service: 06/26/22 Pre-op diagnosis: Left hip OA Post-op diagnosis: same Procedure: Left CHETNA Implants: [place] Tr[place] 2 60/ lip liner Styker Accolade2 #8 132 deg/ +5 36 ceramic femoral head Surgeon: Alberto Edouard MD Anesthesia: GETA and local Was an Beef Cattle Farm Manager used for this Procedure?: Yes Beef Cattle Farm Manager: Gucci Burrows Estimated blood loss (mL): 200 IV fluids (mL): 1,000 Pathology: other Condition: stable Disposition: PACU
--- NOTE | 2022-06-26 10:32 | W.PM.OPN ---
Operative Note Operative Note Date of Service: 06/26/22 Narrative: Date of Service: 06/26/22 Pre-op diagnosis: Left hip OA Post-op diagnosis: same Procedure: Left CHETNA Implants: [place] Trident 2 60/ lip liner Styker Accolade2 #8 132 deg/ +5 36 ceramic femoral head Surgeon: Alberto Edouard MD Anesthesia: GETA and local Was an Accounts Payable Payroll Coordinator used for this Procedure?: Yes Accounts Payable Payroll Coordinator: Gucci Burrows Estimated blood loss (mL): 200 IV fluids (mL): 1,000 Pathology: other Condition: stable Disposition: PACU Procedure in detail: Patient was brought into the operating room and placed in the right lateral decubitus position. All bony prominences were well padded and the limb was prepped and draped in standard sterile fashion. Time-out was called to identify proper site procedure proper surgeon IV antibiotics and 1 g of transaxemic acid were administered. I began by making a curvilinear incision over the posterolateral aspect of the greater trochanter. Dissection was taken down to the tensor fascia which was incised in line with the incision and a Charnley retractor was placed. Cautery was used to maintain hemostasis. A werewolf device was also used. The hip was internally rotated and the external rotators were identified. The vessels were cauterized and a full-thickness capsular/external rotator layer was developed starting just proximal to the piriformis. This layer was tagged and a dull Hohmann retractor was placed underneath the neck in the hip was dislocated. The head was eburnated and deformed. A neck cut was made 1.5 cm proximal to the lesser trochanter and the head and neck were removed and measured at 56-58mm on the back table. I placed an anterior and posterior blunt acetabular retractor and care was taken to protect the posterior nervous structures. I started with a 54mm reamerrand sequentially reamed up to a size 60 and impacted a 60 at approximately 45 degrees of inclination and 25 degrees of version. I then placed a lipped liner and turned my attention to the femur. I identified the piriformis insertion and used this as a starting point for my lorie cutter. The medius tendon was protected with a Hibs retractor. I then used a Charnley awl to identify the canal and a curved curette to remove the lateral bone. I irrigated copiously. I then sequentially broached in the patient's natural version to a size 8 and placed my trial implants. Using a 132deg and a +5 trail head I took the hip through range of motion. I was very satisfied with the stability and length. Therefore I removed all instrumentation and copiously irrigated. I placed my final femoral implant and + 5 ceramic femoral head and again took the hip through range of motion and was satisfied with the stability and length. I then irrigated for 3 minutes with iodine and placed 1 g of local tranaxemic acid. I then performed a capsular closure with 2.0 fiberwire, Michelle's fascia with 0 Vicryl, subcuticular with 2-0 Vicryl and the skin with haley. Patient was placed into a sterile dressing. Radiographs were obtained at the completion of the case and I was satisfied with the component position. Patient was extubated brought to the recovery room in stable condition.
[2022-06-26] MEDS: HYDROmorphone HCl 0.5 MG/0.5 ML SYRINGE 0.25 MG IVPUSH ×5 (10:35→20:55)
--- NOTE | 2022-06-26 14:09 | P.CONHOSP_ITS ---
History of Present Illness Data of Consult Service Date: 06/26/22 Requesting physician: Gucci Burrows Primary Care Provider: MD NICOLE Davis Reason for consult: medical management 77 year old male with hypertension, hypercholesterolemia, chronic gout on allopurinol, lumbar degenerative disc disease, and osteoarthritis of multiple joints admitted to Orthopedic surgery s/p total left hip arthroplasty pod 0 with consult placed for medical management. The patient is resting comfortably in bed and has no complaints at this time. He does endorse mild constipation with last full bowel movement 2 days ago and small bowel movement this morning. He reports his pain is well controlled. Denies any lightheadedness, palpitations, shortness of breath, abdominal pain, nausea, vomiting, diarrhea, melena, hematochezia, or chest pain. He has an occasional cigar smoker, former cig arette smoker who reports only social alcohol intake and denies any drug use. Review of Systems Review of Systems: General: No fevers, malaise, unintentional weight loss HEENT: No blurred vision, diplopia. No sore throat, nasal congestion, rhinorrhea, sinus pain, ear pain Cardiovascular: No chest pain, palpitations, or leg edema Respiratory: No shortness of breath, wheezing, cough GI: No abdominal pain, nausea, vomiting, diarrhea, constipation, melena, hematochezia : No dysuria, hematuria, increased urinary frequency, decreased urinary output MSK: No myalgia, back pain Neuro: No headaches, weakness, paresthesias Skin: No rashes or lesions [facility] Medical History Benign essential hypertension Gout History of blood transfusion Impaired fasting glucose Lumbar degenerative disc disease Mild anemia Obesity (BMI 30-39.9) Osteoarthritis Osteoarthritis of hip Peripheral polyneuropathy Personal history of COVID-19 Primary osteoarthritis of left hip Pure hypercholesterolemia Smoker Family History Father CVD (cardiovascular disease) Mother Stroke Cancer Brother Healthy adult Sister Healthy adult Surgical History History of surgery History of total right hip arthroplasty Hx of colonoscopy Social History Household Members: Spouse Housing: House Are you a primary child care center assistant director to a significant other at home: No Do you presently have visiting nurse or other home services: No Alcohol intake: current Alcohol intake frequency: a few times a week Patient Tobacco Use Status: Current someday Tobacco user Tobacco use type: Cigar e-Cigarette/Vaping Use: Never Used Second Hand Smoke Exposure: Yes Use of substances other than those prescribed or required for medical reasons: No Have you been hit, kicked, punched, or otherwise hurt by someone within the past year? If so, by whom?: No Are you DNR?: No Advance Directives: Yes Advance Directives Information Provided: No Advance Directives on File: Yes Advance Directives Date on File: 12/14/15 Recently lost weight without trying: No Nutrition Risks: Surgical patient >75years Poor oral hygiene: No ( fragile teeth nothing loose or removable per ) service: No Current occupational status: retired Cognitive needs: No Hearing needs: No Vision needs: No Meds Allergies Allergy/AdvReac Type Severity Reaction Status Date / Time No Known Allergies Allergy Verified 06/26/22 06:34 Active Medications: Current Medications Acetaminophen (Acetaminophen 325 Mg Tablet) 650 mg PO Q6H PRN PRN Reason: Pain, Mild (Pain Scale 1-3) Celecoxib (Celecoxib 200 Mg Capsule) 200 mg PO BID [facility] Docusate Sodium (Docusate Sodium 100 Mg Capsule) 100 mg PO BID [facility] Hydromorphone HCl (Hydromorphone Hcl 0.5 Mg/0.5 Ml Syringe) 0.25 mg IVPUSH Q4H PRN; Protocol PRN Reason: Pain, Severe (Pain Scale 7-10) Lactated Ringer's (Lr) 1,000 mls @ 100 mls/hr IVCONT .Q10H [facility] Stop: 06/27/22 11:20 Last Admin: 06/26/22 11:22 Dose: 100 mls/hr Cefazolin Sodium/Dextrose (Ancef) 2 gm in 50 mls @ 100 mls/hr IV POSTOP ONE Stop: 06/26/22 14:29 Ondansetron HCl (Ondansetron Hcl 4 Mg/2 Ml Vial) 4 mg IVPUSH Q8H PRN PRN Reason: Nausea and Vomiting Oxycodone HCl (Oxycodone Hcl Immed Release 5 Mg Tablet) 5 mg PO Q4H PRN PRN Reason: Pain, Moderate (Pain Scale 4-6 Oxycodone HCl (Oxycodone Hcl Er 10 Mg Tab.Er.12h) 10 mg PO BID [facility] Sodium Chloride (0.9 % Sodium Chloride Flush 3 Ml Syringe) 3 ml IVFLUSH QSHIFT [facility] Home Medications Medication Instructions Recorded Confirmed Last Taken Type cyanocobalamin (vitamin B-12) 1,000 mcg sublingual DAILY 06/07/22 06/26/22 06/25/22 History 1,000 mcg sublingual tablet Physical Exam Vital Signs and Narrative: Vital Signs: Last Vital Signs Temp 97.6 F 06/26/22 12:45 Pulse 98 06/26/22 12:45 Resp 16 06/26/22 12:45 BP 143/76 H 06/26/22 12:45 Pulse Ox 97 06/26/22 12:45 O2 Del Method 06/26/22 12:45 O2 Flow Rate 2 06/26/22 12:45 BMI result Body Mass Index 32.6 Constitutional - Awake and Alert, No apparent distress Eyes - PERRLA, EOMI Cardiovascular - S1S2, RRR, No edema Respiratory - Normal lung expansion, Normal respiratory effort, No respiratory distress, CTA bilaterally Gastrointestinal - NT / ND; +BS; No rebound or guarding Extremities - no calf tenderness bilaterally, no swelling Skin - Warm/Dry Neurological - Alert & oriented x3, CN II-XII in tact, 5/5 strength BUE and BLE Psychological - Appropriate affect Results Labs CBC and Chem 7: 05/23/22 10:43 05/23/22 10:43 Labs: Laboratory Results - last 24 hr 06/26/22 06:15 COVID-19 ([facility]) Negative COVID-19 Clin Com See Note Imaging Radiologist's Impressions: Impressions Pelvis X-Ray 06/26/22 10:23 IMPRESSION: Satisfactory appearance of left hip replacement. Satisfactory appearance of left hip replacement. Assessment and Plan (1) S/P total left hip arthroplasty: Status: Acute Plan 77 year old male with hypertension, hypercholesterolemia, chronic gout on allopurinol, lumbar degenerative disc disease, and osteoarthritis of multiple joints admitted to Orthopedic surgery s/p total left hip arthroplasty pod 0 with consult placed for medical management. #Hypertension- reasonably controlled -Reviewed last BMP 05/23 showing normal renal function and electrolyte levels -Recommend resuming amlodipine 2.5mg daily -BMP already ordered for tomorrow morning. If renal function and K normal, resume irbesartan as well, otherwise hold and call us -Monitor BPs #Gout- continue allopurinol #Constipation -Continue scheduled docusate given concurrent opitate use Case discussed with Dr. Orellana. Thank you for allowing me to participate in this consult. Signing off at this time. Please do not hesitate to call prn for further questions.
--- NOTE | 2022-06-26 15:56 | MHC.CM.PN ---
cm attempted to meet w/pt however pt's rn just starting admission assessment. cm to revist. PT recommending home w/services and referral placed to [facility].
[2022-06-26] MEDS: oxyCODONE HCl Immed Release 5 MG TABLET PO (16:00)
[2022-06-26] MEDS: Docusate Sodium 100 MG CAPSULE PO (20:47)
[2022-06-26] MEDS: Celecoxib 200 MG CAPSULE PO (20:47)
[2022-06-27] VITALS (8 sets, daily range): BP systolic 107–133; BP diastolic 63–79; PULSE 88–109; RESP 17–20; TEMP 36.7–37.3; O2SAT 91–95
[2022-06-27] MEDS: oxyCODONE HCl Immed Release 5 MG TABLET PO ×4 (00:27→18:19)
[2022-06-27] MEDS: HYDROmorphone HCl 0.5 MG/0.5 ML SYRINGE 0.25 MG IVPUSH (05:20)
[2022-06-27 06:02] LABS: MANUAL DIFF FLAG NO
[2022-06-27] MEDS: Lactated Ringers 1,000 ML 100 ML IVCONT (06:16)
[2022-06-27 06:40] LABS: Basophils Percent Auto 0.4 % (0-2); Eosinophils Absolute Auto 0.1 X10*3/uL (0.0-0.4); Eosinophils Percent Auto 1.2 % (0-4); Hematocrit 31.7 % (42.0-52.0); Hemoglobin 10.6 g/dl (14.0-18.0); Imm Gran Abs Auto 0.02 X10*3/uL (0.00-0.03); Imm Gran Pct Auto 0.3 % (0.0-0.4); Lymphocytes Absolute Auto 1.6 X10*3/uL (1.2-4.9); Lymphocytes Percent Auto 20.5 % (20-40); Mean Corpuscular HGB Conc 33.4 g/dl (31.0-36.0); Mean Corpuscular Hemoglobin 30.5 pg (27.0-33.0); Mean Corpuscular Volume 91.1 fL (80.0-98.0); Mean Platelet Volume 11.2 fL (9.4-12.4); Monocytes Percent Auto 12.9 % (2-11); Neutrophils Percent Auto 64.7 % (45-73); Platelet Count 160 X10*3/uL (160-400); Red Blood Count 3.48 X10*6/uL (4.60-5.80); White Blood Count 7.7 X10*3/uL (4.8-10.8)
[2022-06-27 07:20] LABS: Anion Gap 8 (12-20); Blood Urea Nitrogen 20 mg/dL (9-16); Calcium 8.5 mg/dL (8.4-10.2); Carbon Dioxide 28 mmol/L (22-29); Chloride 101 mmol/L (96-108); Creatinine Clr Calc Pharmacy 89.3; Estimated Glomerular Filt Rate > 60; Glucose Fasting 122 mg/dL (60-99); Potassium 3.9 mmol/L (3.3-5.1); Sodium 133 mmol/L (135-145)
--- NOTE | 2022-06-27 07:43 | PM.PNORT ---
Subjective Subjective Date of Service: 06/27/22 Interval history: POD1 s/p left CHETNA. No overnight events. Pain is well managed. Resting comfortably in bed. No additional complaints. Physical Exam Vital Signs: Vital Signs: Last Vital Signs Temp 98.5 F 06/27/22 04:00 Pulse 105 H 06/27/22 04:00 Resp 17 06/27/22 04:00 BP 130/65 06/27/22 04:00 Pulse Ox 95 06/27/22 04:00 O2 Del Method 06/27/22 04:00 O2 Flow Rate 2 06/26/22 13:53 BMI result Body Mass Index 32.6 Const: General: cooperative, healthy appearing and no acute distress Resp: Effort & Inspection: normal respiratory effort and able to speak in complete sentences Cardio: Rate: regular rate Peripheral pulses: Peripheral pulses 2+ throughout GI: Palpation (GI): Soft to palpation Skin: Lesions: no lesions Rashes: no rashes Extrem: Other: Left hip Aquacel is c/d/i/ able to dorsiflex and plantarflex. NVI. Procedures Date of Service Date of Service: 06/27/22 Progress Note: A&P Assessment and plan (1) S/P total left hip arthroplasty: Status: Acute Assessment and Plan: Continue pain mgmnt Begin Lovenox for dvt ppx - Hx of 1st degree AV block and tobacco use begin PT for LTHA Dispo planning-Pending PT eval, pain mgmnt Time Spent With Patient Time: Total time spent is greater than 50% in coordination of care (as documented) at patient's floor/unit and/or counseling patient: Quality Stroke Does the patient have a stroke diagnosis?: No VTE Prior VTE?: No VTE Risk Level:: Medical - moderate - high VTE Device Contraindication: N/A - Device Ordered VTE Drug Contraindication: N/A - Med Ordered
[2022-06-27] MEDS: Celecoxib 200 MG CAPSULE PO ×2 (08:08→20:20)
[2022-06-27] MEDS: oxyCODONE HCl ER 10 MG TAB.ER.12H PO ×2 (08:09→20:20)
--- NOTE | 2022-06-27 09:15 | MHC.CM.PN ---
PATIENT LIVES WITH HCP/ (ON FILE AND VERIFIED) HE HAS A CANE AND WALKER IN ANTICIPATION OF THIS SURGERY. [facility] NO PRIOR SERVICES. HE DOES NOT FEEL READY OT DC HOME TODAY BUT DOES AGREE TO [facility] AT DC. REFERRAL PREVIOUSLY PLACED. IMM 06/27 IN CHART
[2022-06-27] MEDS: Enoxaparin Sodium 40 MG/0.4 ML SYRINGE SUBCUT (12:00)
--- NOTE | 2022-06-27 13:40 | HO.POSTANES ---
Post Anesthesia Evaluation Post Anesthesia Evaluation Vital Signs: Vital Signs Temp Pulse Resp BP Pulse Ox O2 Del Method 06/27/22 13:32 93 107/63 92 06/27/22 11:23 98.0 F 93 19 107/63 92 Room Air 06/27/22 09:09 88 133/75 93 06/27/22 07:58 99.1 F 88 20 133/75 93 Room Air 06/27/22 04:00 98.5 F 105 H 17 130/65 95 Room Air Anesthesia: General Mental Status: Awake Pain Control: Satisfactory Nausea/Vomiting: None Hydration: Adequate Anesthesia-Related Issues: No Anes. Related Issues
[2022-06-27] MEDS: 0.9 % Sodium Chloride Flush 3 ML SYRINGE IVFLUSH ×2 (17:03→20:21)
[2022-06-27] MEDS: Docusate Sodium 100 MG CAPSULE PO (20:21)
[2022-06-28] VITALS: BP 127/60; PULSE 92; RESP 17; TEMP 36.3; O2SAT 93
[2022-06-28 04:00] VITALS: BP 130/62; PULSE 85; RESP 17; TEMP 36.6; O2SAT 95
[2022-06-28 07:20] LABS: MANUAL DIFF FLAG NO
[2022-06-28 07:24] LABS: Basophils Percent Auto 0.4 % (0-2); Eosinophils Absolute Auto 0.1 X10*3/uL (0.0-0.4); Hematocrit 33.3 % (42.0-52.0); Imm Gran Abs Auto 0.04 X10*3/uL (0.00-0.03); Imm Gran Pct Auto 0.5 % (0.0-0.4); Lymphocytes Absolute Auto 1.1 X10*3/uL (1.2-4.9); Lymphocytes Percent Auto 14.4 % (20-40); Mean Corpuscular Volume 90.7 fL (80.0-98.0); Mean Platelet Volume 11.7 fL (9.4-12.4); Monocytes Absolute Auto 0.9 X10*3/uL (0.1-1.2); Monocytes Percent Auto 11.3 % (2-11); Neutrophils Absolute Auto 5.6 x10*3/uL (2.0-8.3); Neutrophils Percent Auto 72.4 % (45-73); Platelet Count 161 X10*3/uL (160-400); Red Blood Count 3.67 X10*6/uL (4.60-5.80); Red Cell Distribution Width 12.8 % (11.0-16.0); White Blood Count 7.7 X10*3/uL (4.8-10.8)
[2022-06-28 07:55] LABS: Blood Urea Nitrogen 19 mg/dL (9-16); Creatinine Clr Calc Pharmacy 90.3; Estimated Glomerular Filt Rate > 60; Glucose Fasting 121 mg/dL (60-99)
[2022-06-28 08:00] VITALS: BP 125/76; PULSE 90; RESP 18; TEMP 36.7; O2SAT 96
[2022-06-28 08:05] LABS: Anion Gap 12 (12-20); Carbon Dioxide 28 mmol/L (22-29); Chloride 99 mmol/L (96-108); Potassium 4.2 mmol/L (3.3-5.1); Sodium 135 mmol/L (135-145)
[2022-06-28] MEDS: oxyCODONE HCl ER 10 MG TAB.ER.12H PO (08:27)
--- NOTE | 2022-06-28 08:27 | PM.DS ---
DS: Providers Provider Date of Service: 06/28/22 Date of admission: 06/26/22 06:10 Primary care physician: Luis Huber MD Consults: 06/26/22 13:53 Consult to Hospitalist Routine Consulting Provider: Hospitalist Reason For Exam: medicl management DS: Diagnosis Discharge Diagnosis (1) S/P total left hip arthroplasty: Status: Acute DS: Summary Hospital Course Hospital Course: The patient underwent a successful left total hip arthroplasty, they were transferred to PACU and then to the floor to recover. During their stay, their vitals were stable, afebrile at 98.0. Labs were unremarkable, H/H 11.0/33.3. POD 1 they were started on Lovenox for DVT ppx, they also received Physical Therapy services twice a day. Prior to discharge, their dressing was changed, incision clean dry and intact, new Aquacel dressing applied and the plan was to be discharged home with [facility] services. Time Spent with Patient Time attestation: Total time spent providing and/or coordinating discharge services: Discharge coordination time: Less than 30 minutes Quality: Safe Use of Opioids Does Pt have an Active Cancer Diagnosis on the Problem List?: No Quality: Stroke Does the patient have a stroke diagnosis?: No Physical Exam Vital Signs: Vital Signs: Last Vital Signs Temp 98.0 F 06/28/22 08:00 Pulse 90 06/28/22 08:00 Resp 18 06/28/22 08:00 BP 125/76 06/28/22 08:00 Pulse Ox 96 06/28/22 08:00 O2 Del Method 06/28/22 08:00 O2 Flow Rate 2 06/26/22 13:53 BMI result Body Mass Index 32.6 Const: General: cooperative, healthy appearing and no acute distress Resp: Effort & Inspection: normal respiratory effort and able to speak in complete sentences Cardio: Rate: regular rate Peripheral pulses: Peripheral pulses 2+ throughout GI: Palpation (GI): Soft to palpation Skin: Lesions: no lesions Rashes: no rashes Extrem: Other: Left hip incision site is c/d/i. No erythema. [place] intact. NVI. DS: Data Data Completed and Pending Pending studies at discharge: Pending at discharge 06/26/22 10:21 Surgical [PTH] Routine Labs on day of discharge: Laboratory Results - last 24 hr 06/28/22 06/28/22 05:52 05:52 WBC 7.7 RBC 3.67 L Hgb 11.0 L Hct 33.3 L MCV 90.7 MCH 30.0 MCHC 33.0 RDW 12.8 Plt Count 161 MPV 11.7 Immature Gran % (Auto) 0.5 H Neut % (Auto) 72.4 Lymph % (Auto) 14.4 L [place] % (Auto) 11.3 H Eos % (Auto) 1.0 Baso % (Auto) 0.4 Lymph # (Auto) 1.1 L [place] # (Auto) 0.9 Eos # (Auto) 0.1 Baso # (Auto) 0.0 Abs Immat Gran (auto) 0.04 H Absolute Neuts (auto) 5.6 Absolute Nucleated RBC 0.000 Nucleated RBC % (auto) 0.0 Sodium 135 Potassium 4.2 Chloride 99 Carbon Dioxide 28 Anion Gap 12 BUN 19 H Creatinine 0.95 Estim Creat Clear Calc 90.3 Estimated GFR > 60 Fasting Glucose 121 H Calcium 9.0 Discharge Plan Discharge Anticipated Discharge Date/Time: 06/28/22 08:24 Patient Disposition: Home Health Service Discharge Diagnosis: s/p left CHETNA Referrals: Gucci Burrows PA-C [Physician Senior It Auditor] - 07/12/22 1:30 pm Discharge Medications: New acetaminophen 325 mg Tablet 650 mg PO Q6H PRN (Reason: Pain, Mild (Pain Scale 1-3)) 30 Days Qty: 42 0RF enoxaparin 40 mg/0.4 mL Syringe 40 mg subcut Q24H 42 Days Qty: 16.8 0RF celecoxib 200 mg Capsule 200 mg PO BID 30 Days Qty: 60 0RF docusate sodium 100 mg Capsule 100 mg PO BID 30 Days Qty: 60 0RF oxycodone 5 mg Tablet 5 mg PO Q4H PRN (Reason: Pain, Moderate (Pain Scale 4-6) 7 Days Qty: 42 0RF Rx Instructions: Partial Fill upon patient request. Continued amlodipine 2.5 mg tablet 2.5 mg PO DAILY Qty: 90 3RF allopurinol 100 mg tablet 200 mg PO DAILY Qty: 180 3RF (DME) elevated toilet seat See Rx Instructions .ROUTE .MEDSUPPLY Qty: 1 0RF Rx Instructions: As directed irbesartan 300 mg tablet 300 mg PO DAILY Qty: 90 3RF cyanocobalamin (vitamin B-12) 1,000 mcg Tablet, Sublingual 1,000 mcg SUBLINGUAL DAILY Discontinued celecoxib 200 mg capsule 200 mg PO DAILY PRN (Reason: pain) Qty: 90 3RF Discharge Orders: Discharge Order (Routine); Ordered 06/28/22 Ordered By: Kaleigh Kumar Diet: Regular diet Activity on Discharge: Use cane or walker Stand Alone Forms: Patient Portal Discharge page Care Plan Goals: Restore fxn to left hip Health Concerns: None Plan of Treatment: Physical Therapy for total hip arthroplasty: posterior precautions, gait training, ROM, strength Limit stair climbing No showering, no tub bath-keep dressing clean, dry and intact No driving x6 weeks Continue Lovenox x 6 weeks Follow up with [facility] Orthopedics in 2 weeks Assessment: Stable for discharge
[2022-06-28] MEDS: Celecoxib 200 MG CAPSULE PO (08:28)
[2022-06-28] MEDS: 0.9 % Sodium Chloride Flush 3 ML SYRINGE IVFLUSH (08:28)
--- NOTE | 2022-06-28 08:35 | P.F2F_ITS ---
Service Date Service Date: 06/28/22 Encounter Date of encounter: 06/28/22 Reasons for Services Signs and symptoms assessed: Pt. is considered homebound due to recent surgery. Unable to drive, poor balance, poor gait mechanics. S/p Left total hip arthroplasty. Reason for physical therapy: home safety and mobility, therapeutic exercises, restore joint function, gait/transfer training, assess need for DME and ADL training Reason for occupational therapy: home safety and mobility, therapeutic exercises, restore joint function, gait/transfer training, assess need for DME and ADL training Homebound: Leaving the home is medically contraindicated at this time without the asist of a device and/or another person due th the listed conditions above and below. Reason homebound: unsteady gait / fall risk, leg weakness, pain with ambulation, pain with transfers, poor balance / fall risk and unable to drive Homebound supporting statement: Pt. is considered homebound due to recent surgery. Unable to drive, poor balance, poor gait mechanics. Certification: Based on the above findings, I certify that this patient is confined to the home and needs intermittent care home care, physical therapy and/or speech therapy, or continues to need occupational therapy. The patient is under my care, and I have initiated the establishment of the plan of care. The patient will be followed by a physician who will periodically review the plan of care.
--- NOTE | 2022-06-28 09:16 | MHC.CM.PN ---
PT TO DC HOME TODAY WITH [facility] FAMILY TO TRANSPORT
[2022-06-28 09:55] VITALS: BP 125/76; PULSE 90; O2SAT 96
[2022-06-28] MEDS: Enoxaparin Sodium 40 MG/0.4 ML SYRINGE SUBCUT (11:24)
== END 2022-06-28 13:30 | disposition home health service (06) | DRG 470 ==
LOC: HO.SSSA 06:36 → HO.S3 12:37
PROVIDERS: Nurse Practitioner Family; Physician Assistant; Admitting Provider Orthopaedic Surgery; PCP Internal Medicine; Visit Provider Orthopaedic Surgery
PROC: 0SRB03A Replacement of Left Hip Joint with Ceramic Synthetic Substitute, Uncemented, Open Approach (ICD-10-PCS; CPT 27130; principal; 2022-06-26 07:30)
DX: M16.12 Unilateral primary osteoarthritis, left hip (principal); I10 Essential (primary) hypertension; F17.290 Nicotine dependence, other tobacco product, uncomplicated; M10.9 Gout, unspecified; K59.00 Constipation, unspecified; Z20.822 Contact with and (suspected) exposure to COVID-19; Z71.6 Tobacco abuse counseling; Z79.899 Other long term (current) drug therapy
CPT/HCPCS: 36415; 72170; 80048; 84443; 85025; 85027; 85610; 86850; 86900; 86901; 87635; 87640; 87641; 88304; 88311; 93005; 97110; 97116; 97162; 97165; 97530; C1776; J0131; J0690; J1100; J1170; J1650; J2250; J2405; J2795; J3010

== ENCOUNTER 2022-07-12 08:32 | Outpatient (RCR) | payer MEDICARE, SELFPAY | END 2022-09-24 12:34 | disposition home or self-care (01) | LOC: HO.PT 08:32 | PROVIDERS: Visit Provider Physician Assistant | DX: Z96.642 Presence of left artificial hip joint (principal) ==

== ENCOUNTER → 2022-08-06 08:40 | Outpatient (BNVA) | payer MEDICARE, SELFPAY | PROVIDERS: PCP Internal Medicine; Visit Provider Physician Assistant | DX: Z13.89 Encounter for screening for other disorder (principal) ==

== ENCOUNTER 2022-08-09 10:00 | Outpatient (RCR) | payer MEDICARE, SELFPAY ==
--- NOTE | 2022-08-09 12:51 | MHC.PT.DC ---
[facility] [place] Office [place] Office [place] Office [address] Ashish Farrell [address] [phone] F: [phone] F: [phone] F: [phone] F: [phone] Physical Therapy Discharge Report Diagnosis: s/p L CHETNA Date of Surgery: 07/12/22 Date of Evaluation: 07/17/22 Date of Discharge: 08/09/22 Treatments to Date: 8 Cancellations to Date: No Shows to Date: Discharge Status: Achieved Goals Improved Function Independent with HEP Discharge Summary: Pt presented today reporting he feels really good and requests DC and therapy is in agreement as he has met hoe therapeutic goals, is I with his home program, and managed of his pain. Electronically signed by: Juan Potter PT. Please sign and return to therapist. Thank you for your referral.
== END 2022-08-09 12:51 | disposition home or self-care (01) ==
LOC: HO.PTCHIC 10:00
PROVIDERS: Visit Provider Orthopaedic Surgery
DX: Z96.642 Presence of left artificial hip joint (principal)
CPT/HCPCS: 97110; 97112; 97116; 97161; 97530

== ENCOUNTER 2022-08-28 09:27 | Outpatient (REF) | payer MEDICARE, SELFPAY ==
[2022-08-28 11:28] LABS: Appearance Urine Clear; Color Urine Yellow; Glucose Urine UA Negative (Negative); Leukocyte Esterase Urine Negative (Negative); Nitrite Urine Negative (Negative); PH 6.5 (5.0-9.0); UMIC TRIGGER UACC YES; Urine Blood Moderate (2+) (Negative); Urine Ketones Negative (Negative); Urine Protein Negative (Neg-Trace)
[2022-08-28 11:30] LABS: Bacteria Urine None Seen (None Seen); Hyaline Casts Urine 0-2 /LPF (0-2); Squamous Epithelial Cell Urine 0-2 /HPF (0-2); WBC Urine 0-5 /HPF (0-5)
[2022-08-28 11:46] LABS: MANUAL DIFF FLAG NO
[2022-08-28 12:00] LABS: Basophils Absolute Auto 0.1 X10*3/uL (0.0-0.2); Eosinophils Absolute Auto 0.4 X10*3/uL (0.0-0.4); Eosinophils Percent Auto 4.2 % (0-4); Hematocrit 37.4 % (42.0-52.0); Hemoglobin 12.2 g/dl (14.0-18.0); Imm Gran Abs Auto 0.03 X10*3/uL (0.00-0.03); Imm Gran Pct Auto 0.4 % (0.0-0.4); Lymphocytes Absolute Auto 1.7 X10*3/uL (1.2-4.9); Lymphocytes Percent Auto 20.3 % (20-40); Mean Corpuscular HGB Conc 32.6 g/dl (31.0-36.0); Mean Corpuscular Hemoglobin 29.3 pg (27.0-33.0); Mean Corpuscular Volume 89.9 fL (80.0-98.0); Mean Platelet Volume 11.7 fL (9.4-12.4); Monocytes Absolute Auto 0.6 X10*3/uL (0.1-1.2); Monocytes Percent Auto 7.2 % (2-11); Neutrophils Absolute Auto 5.6 x10*3/uL (2.0-8.3); Neutrophils Percent Auto 66.9 % (45-73); Platelet Count 229 X10*3/uL (160-400); Red Blood Count 4.16 X10*6/uL (4.60-5.80); White Blood Count 8.3 X10*3/uL (4.8-10.8)
[2022-08-28 12:32] LABS: Alanine Aminotransferase 11 U/L (0-40); Albumin Level 4.1 g/dL (3.5-5.0); Alkaline Phosphatase 75 U/L (39-117); Anion Gap 15 (12-20); Aspartate Amino Transferase 11 U/L (5-37); Bilirubin Total 0.7 mg/dL (0.0-1.0); Blood Urea Nitrogen 19 mg/dL (9-16); Calcium 9.3 mg/dL (8.4-10.2); Carbon Dioxide 23 mmol/L (22-29); Chloride 108 mmol/L (96-108); Cholesterol 198 mg/dL; Estimated Glomerular Filt Rate > 60; Glucose Fasting 106 mg/dL (60-99); HDL Cholesterol 43 mg/dL; LDL Cholesterol Calculated 134 mg/dl; Potassium 4.6 mmol/L (3.3-5.1); Sodium 141 mmol/L (135-145); TSH reflex Free T4 1.37 uIU/mL (0.32-4.0); Total Protein 6.5 g/dL (6.5-8.0); Triglycerides 106 mg/dL; Vitamin D 25-OH Total 15.6 ng/mL (>30)
== END 2022-08-28 09:28 | disposition home or self-care (01) ==
LOC: HO.HMGCLDS 09:27
PROVIDERS: PCP Internal Medicine; Visit Provider Internal Medicine
DX: R30.0 Dysuria (principal); E55.9 Vitamin D deficiency, unspecified; E78.00 Pure hypercholesterolemia, unspecified; I10 Essential (primary) hypertension; M10.9 Gout, unspecified
CPT/HCPCS: 36415; 80053; 80061; 81001; 82306; 84443; 84550; 85025

== ENCOUNTER → 2022-09-03 09:51 | Outpatient (BNVA) | payer MEDICARE, SELFPAY | PROVIDERS: PCP Internal Medicine; Referring Provider Internal Medicine; Visit Provider Internal Medicine Cardiovascular Disease | DX: I42.9 Cardiomyopathy, unspecified (principal); I10 Essential (primary) hypertension | CPT/HCPCS: 99212 ==

== ENCOUNTER 2022-09-14 13:55 | Outpatient (REF) | payer MEDICARE, SELFPAY ==
--- NOTE | ~2022-09-14 | XR_ITS ---
EXAMINATION: PELVIS AND LEFT HIP X-RAY CLINICAL INFORMATION: Pain COMPARISON: Previous x-ray May 2022 TECHNIQUE: AP view of the lower pelvis and 1 shoot through lateral view of the left hip FINDINGS: There are bilateral hip replacements in satisfactory position. No fracture, dislocation or x-ray evidence of loosening. Bones of the visualized pelvis are unremarkable. Atherosclerotic disease. No suspicious soft tissue calcifications. XR/XR hip LT 1V IMPRESSION: Satisfactory appearance of bilateral hip replacements.
--- NOTE | ~2022-09-14 | XR_ITS ---
EXAMINATION: PELVIS AND LEFT HIP X-RAY CLINICAL INFORMATION: Pain COMPARISON: Previous x-ray May 2022 TECHNIQUE: AP view of the lower pelvis and 1 shoot through lateral view of the left hip FINDINGS: There are bilateral hip replacements in satisfactory position. No fracture, dislocation or x-ray evidence of loosening. Bones of the visualized pelvis are unremarkable. Atherosclerotic disease. No suspicious soft tissue calcifications. XR/XR pelvis 1-2V IMPRESSION: Satisfactory appearance of bilateral hip replacements.
== END 2022-09-14 13:56 | disposition home or self-care (01) ==
LOC: HO.HOSX 13:55
PROVIDERS: Visit Provider Orthopaedic Surgery
DX: Z96.642 Presence of left artificial hip joint (principal)
CPT/HCPCS: 72170; 73501

== ENCOUNTER → 2022-10-22 07:47 | Outpatient (REF) | payer MEDICARE, SELFPAY ==
--- NOTE | 2022-10-22 07:55 | CA_ITS ---
Transthoracic Echocardiogram Patient (Last, First, Middle): George Borges R Gender: Male Date of : 1945 Age: 77 Procedure Date: 10/22/2022 Procedure Type: Transthoracic Echocardiogram Location: OP Height: 190.5 cm Weight: 115.67 kg BSA: 2.43 m2 Heart Rate: 87 bpm BP: 130 / 80 mmHg Padder Cushion: CAMILLE Lopez MD: Shayne Hunter MD Risk Advisor: Shayne Hunter MD Symptoms: I42.9 - Cardiomyopathy, unspecified Study Quality: Adequate/Contrast ECG Rhythm: Arrhythmia Conclusions: - Normal left ventricular cavity size. There is mildly increased left ventricular wall thickness. The left ventricular systolic function is low normal. The visually estimated ejection fraction is between 50-55%. - Mildly increased right ventricular cavity size. There is normal right ventricular systolic function. Findings Procedure Information Contrast agent, definity, is being given per protocol without apparent complications. Left Ventricle Normal left ventricular cavity size. There is mildly increased left ventricular wall thickness. The left ventricular systolic function is low normal. The visually estimated ejection fraction is between 50-55%. There is no evidence of regional wall motion abnormalities. Diastolic function is normal for age. Right Ventricle Mildly increased right ventricular cavity size. There is normal right ventricular systolic function. Atria The left atrium is normal in size. The right atrium is normal in size. Aortic Valve There is a normal trileaflet aortic valve. There is mild calcification of the aortic valve. There is no aortic valve stenosis. There is no aortic valve regurgitation. Mitral Valve Normal mitral valve structure and function. There is no mitral valve regurgitation. There is no mitral valve stenosis. Pulmonic Valve The pulmonic valve is likely normal. Tricuspid Valve Normal tricuspid valve structure and function. There is trace tricuspid valve regurgitation. Moderately elevated right atrial pressure. There is no evidence of pulmonary hypertension. Great Vessels There is mild dilatation of the sinuses of Valsalva measuring 3.80 cm and mild dilatation of the ascending aorta measuring 3.50 cm. The visualized portions of the pulmonary artery and branches are normal. Venous The inferior vena cava is dilated and collapses less than 50% with inspiration. Pericardium/Pleural There is no evidence of pericardial effusion. Prior Study Comparison Changes noted compared to prior study dated: 06/04/2022. EF low normal 50 55% now (mild improvement) Measurements 2D Linear Measurements IVSd: 1.34 0.6-0.9/0.6-1.0 cm LVIDd: 4.93 3.9-5.3/4.2-5.9 cm LVIDd Index: 2.03 2.4-3.2/2.2-3.1 cm/m2 LVIDs: 3.15 2.0-3.6 cm LVPWd: 1.26 0.7-1.1 cm LA Diam: 3.90 2.7-3.8/3.0-4.0 cm LAIDs Index: 1.60 1.5-2.3 cm/m2 LV Mass: 319.42 67-162/88-224 g LV Mass Index: 131.45 43-95/49-115 g/m2 LVOT Diam: 2.60 3.0+(-)1.3 cm 2D Systolic Function EF 4C: 46.50 >55% EF 2C: 53.20 >55% EF BiP: 49.10 >55% Mitral Valve MV Pk E: 0.58 MV PK A: 0.71 MV Decel Time: 246.00 E/A: 0.80 E'Lateral: 7.40 E'Medial: 6.31 E/E' Med: 9.10 E/E' Lat: 7.80 PHT: 72.00 MVA PHT: 3.06 Decel Bath: 2.34 Aortic Valve AoV Pk Kelechi: 1.66 AoV Mn Kelechi: 1.25 AoV VTI: 0.37 AoV Pk Grad: 11.00 Aov Mn Grad: 7.00 TAYE Cont.VTI: 2.90 LVOT LVOT Pk Kelechi: 0.95 LVOT Mn Kelechi: 0.66 LVOT VTI: 0.20 LVOT Pk Grad: 4.00 LVOT Mn Grad: 2.00 LVOT Diam: 2.60 LVOT Area: 5.31 Diastolic Function MV Pk E: 0.58 MV Pk A: 0.71 E/A: 0.80 E'Medial: 6.31 E/E' Med: 9.10 E' Laterial: 7.40 E/E' Lat: 7.80 Right Ventricle TAPSE (mm): 22.90 Tricuspid Valve TR Pk Kelechi: 2.06 TR Pk Grad: 17.00 RA Press: 15.00 RVSP: 32.00 Great Vessels Aorta Sinus of Valsalva: 3.80 2.0-3.5 cm Ao Asc: 3.50 2.1-3.4 cm Pulmonary Valve PV Pk Kelechi: 0.86 Peak PV Grad: 3.00 Updated in Other Vendor System with Status of Final Shayne Hunter MD electronically signed on 10/24/2022 9:07:56 AM with status of Final
== END ==
LOC: HO.CARD 07:47
PROVIDERS: PCP Internal Medicine; Visit Provider Internal Medicine Cardiovascular Disease
DX: I42.9 Cardiomyopathy, unspecified (principal)
CPT/HCPCS: 93306; Q9957

== ENCOUNTER → 2022-11-05 14:50 | Outpatient (BNVA) | payer MEDICARE, SELFPAY | PROVIDERS: PCP Internal Medicine; Referring Provider Internal Medicine; Visit Provider Internal Medicine Cardiovascular Disease | DX: I42.9 Cardiomyopathy, unspecified (principal); I10 Essential (primary) hypertension | CPT/HCPCS: 99212 ==

== ENCOUNTER 2023-01-07 07:34 | Outpatient (REF) | payer MEDICARE, SELFPAY ==
[2023-01-07 11:12] LABS: MANUAL DIFF FLAG NO
[2023-01-07 11:27] LABS: Appearance Urine Clear; Color Urine Yellow; Glucose Urine UA Negative (Negative); Leukocyte Esterase Urine Negative (Negative); Nitrite Urine Negative (Negative); Urine Blood Negative (Negative); Urine Ketones Negative (Negative); Urine Protein Negative (Neg-Trace)
[2023-01-07 11:31] LABS: Basophils Absolute Auto 0.1 X10*3/uL (0.0-0.2); Eosinophils Absolute Auto 0.2 X10*3/uL (0.0-0.4); Eosinophils Percent Auto 3.9 % (0-4); Hematocrit 40.9 % (42.0-52.0); Hemoglobin 12.9 g/dl (14.0-18.0); Imm Gran Abs Auto 0.01 X10*3/uL (0.00-0.03); Imm Gran Pct Auto 0.2 % (0.0-0.4); Lymphocytes Absolute Auto 2.1 X10*3/uL (1.2-4.9); Lymphocytes Percent Auto 39.9 % (20-40); Mean Corpuscular HGB Conc 31.5 g/dl (31.0-36.0); Mean Corpuscular Hemoglobin 29.6 pg (27.0-33.0); Mean Corpuscular Volume 93.8 fL (80.0-98.0); Mean Platelet Volume 11.7 fL (9.4-12.4); Monocytes Absolute Auto 0.4 X10*3/uL (0.1-1.2); Monocytes Percent Auto 7.8 % (2-11); Neutrophils Absolute Auto 2.4 x10*3/uL (2.0-8.3); Neutrophils Percent Auto 47.2 % (45-73); Platelet Count 211 X10*3/uL (160-400); Red Blood Count 4.36 X10*6/uL (4.60-5.80); White Blood Count 5.1 X10*3/uL (4.8-10.8)
[2023-01-07 11:47] LABS: Estimated Average Glucose 100 mg/dL; Hemoglobin A1c % 5.1 %
[2023-01-07 12:10] LABS: Alanine Aminotransferase 16 U/L (0-40); Albumin Level 4.2 g/dL (3.5-5.0); Alkaline Phosphatase 66 U/L (39-117); Anion Gap 12 (12-20); Aspartate Amino Transferase 16 U/L (5-37); Bilirubin Total 0.6 mg/dL (0.0-1.0); Blood Urea Nitrogen 22 mg/dL (9-16); Calcium 9.3 mg/dL (8.4-10.2); Carbon Dioxide 27 mmol/L (22-29); Chloride 109 mmol/L (96-108); Cholesterol 198 mg/dL; Estimated Glomerular Filt Rate > 60; Glucose Fasting 103 mg/dL (60-99); HDL Cholesterol 54 mg/dL; LDL Cholesterol Calculated 127 mg/dl; Potassium 4.9 mmol/L (3.3-5.1); Sodium 143 mmol/L (135-145); Total Protein 6.6 g/dL (6.5-8.0); Triglycerides 87 mg/dL; Uric Acid 7.9 mg/dL (3.4-7.0)
[2023-01-07 12:15] LABS: B Type Natriuretic Peptide 15 pg/mL (<100)
[2023-01-07 12:29] LABS: Folate 8.6 ng/mL (> or = 4.0); TSH reflex Free T4 1.93 uIU/mL (0.32-4.0); Vitamin B12 793 pg/mL (200-900); Vitamin D 25-OH Total 34.9 ng/mL (>30)
== END 2023-01-07 07:35 | disposition home or self-care (01) ==
LOC: HO.HMGCLDS 07:34
PROVIDERS: PCP Internal Medicine; Visit Provider Internal Medicine
DX: R73.01 Impaired fasting glucose (principal); E53.8 Deficiency of other specified B group vitamins; D64.9 Anemia, unspecified; M10.9 Gout, unspecified; I42.9 Cardiomyopathy, unspecified; E55.9 Vitamin D deficiency, unspecified; R30.0 Dysuria; E78.00 Pure hypercholesterolemia, unspecified; I10 Essential (primary) hypertension
CPT/HCPCS: 36415; 80053; 80061; 81003; 82306; 82607; 82746; 83036; 83880; 84443; 84550; 85025

== ENCOUNTER 2023-03-20 09:34 | Outpatient (AMB) | payer MEDICARE, SELFPAY ==
[2023-03-20 09:37] VITALS: BP 136/74; PULSE 65; BMI 33.2
--- NOTE | 2023-03-20 09:37 | MHC.OFFVIS ---
Intake Vital Signs 03/20/23 09:37 Height 6 ft 1 in Weight 251 lb 5.231 oz BMI 33.2 BP 136/74 Blood Pressure Location Lt brachial Position Sitting Pulse 65 Pulse Source Monitor Intake Visit Reasons: 6 mth fu Intake Note: 6 month follow up with EKG. 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 Accompanied by: Self / Same As Patient Allergies No Known Allergies Allergy (Verified 03/20/23 09:37) Medication List - Last Reconciled 03/20/23 by Shayne Hunter MD acetaminophen 650 mg (2 x 325 mg) PO Q6H PRN 30 days allopurinol 200 mg (2 x 100 mg) PO DAILY amlodipine 2.5 mg PO DAILY celecoxib 200 mg PO DAILY PRN 90 days cholecalciferol (vitamin D3) 50 mcg PO DAILY 90 days cyanocobalamin (vitamin B-12) 1,000 mcg sublingual DAILY irbesartan 300 mg PO DAILY metoprolol succinate ER (Toprol XL) 25 mg PO DAILY HPI HPI Comments History of Present Illness Details 77-year-old gentleman who is here for follow-up. He was seen for perioperative cardiovascular risk assessment. He underwent echocardiography which showed mildly reduced ejection fraction of 40 45%. He has background history of hypertension. He also was drinking alcohol in the past. He underwent stress test where he was able to exercise for 5 metabolic equivalents and he was advised to proceed with hip surgery which he underwent successful in the past. He is doing well since then. He is denying any significant chest discomfort shortness of breath. Since surgery has not been drinking alcohol. He had repeat echocardiography which showed recovery in EF to low normal 50-55%. He has no clinical heart failure. Is taking medications but he is missing carvedilol in the afternoon. He is asking whether he can be changed to once a day formulation. 03/20/2023: He returns for follow-up. He is denying any chest discomfort shortness of breath. No symptoms/signs of heart failure. He drinks some beers here and there but not drinking regularly. Blood pressure control is good. PFSH Medical History Benign essential hypertension Gout History of blood transfusion Impaired fasting glucose Lumbar degenerative disc disease Mild anemia Obesity (BMI 30-39.9) Osteoarthritis Osteoarthritis of hip Peripheral polyneuropathy Personal history of COVID-19 Primary osteoarthritis of left hip Pure hypercholesterolemia Smoker Surgical History History of left hip replacement History of surgery History of total right hip arthroplasty Hx of colonoscopy S/P total left hip arthroplasty (~06/26/22) Family History Father CVD (cardiovascular disease) Mother Stroke Cancer Brother Healthy adult Sister Healthy adult Social History Household Members: Spouse Housing: House Are you a primary critical care nurse to a significant other at home: No Do you presently have visiting nurse or other home services: No 75 years or older and lives alone: No Alcohol intake: current Alcohol intake frequency: a few times a month Patient Tobacco Use Status: Current someday Tobacco user Tobacco use type: Cigar e-Cigarette/Vaping Use: Never Used Second Hand Smoke Exposure: No Advance Directives Date on File: 12/14/15 service: No Current occupational status: retired Cognitive needs: No Hearing needs: No Vision needs: No Review of Systems Const Denies weakness ENT Denies dizziness Card Denies chest pain, Denies chest pain with activity, Denies syncope, Denies rapid heart rate, Denies pedal edema, Denies edema, Denies leg edema, Denies lightheadedness, Denies palpitations, Denies dyspnea, Denies dyspnea on exertion and Denies orthopnea Resp Denies cough, Denies dyspnea and Denies dyspnea on exertion GI Denies hematochezia and Denies change in stool character Musc Denies abnormal gait, Denies muscle cramps, Denies muscle weakness, Denies numbness, Denies radiating pain into limb and Denies tingling Neuro Denies abnormal gait, Denies dizziness, Denies syncope, Denies numbness, Denies tingling and Denies weakness Endo Denies palpitations Physical Exam Vital Signs: Last Vital Signs Pulse 65 03/20/23 09:37 BP 136/74 03/20/23 09:37 BMI result Body Mass Index 33.2 GENERAL APPEARANCE: in no acute distress, pleasant. NECK: no carotid bruit, no jugular venous distention. SKIN: no suspicious lesions, warm and dry. HEART: no murmurs, regular rate and rhythm. LUNGS: clear to auscultation bilaterally. ABDOMEN: soft, nontender. EXTREMITIES: no edema. PERIPHERAL PULSES: equal. NEUROLOGIC: No gross deficits, AAO X 3 Office Procedures EKG Details: Sinus rhythm 65 beats per minute, left axis deviation, QTC 418 milliseconds. [id number], Complete Assessment & Plan Assessment & Plan (1) Benign essential hypertension: Code(s): I10 - Essential (primary) hypertension (2) Pure hypercholesterolemia: Code(s): E78.00 - Pure hypercholesterolemia, unspecified (3) Cardiomyopathy: Code(s): I42.9 - Cardiomyopathy, unspecified Qualifiers: Cardiomyopathy type: unspecified Qualified Code(s): I42.9 - Cardiomyopathy, unspecified Plan Pleasant 77 gentleman who is here for follow-up. 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 By cutting back on alcohol is ejection fraction improved to low normal. Clinically did not develop any heart failure. We discussed again that he is sensitive to alcohol and if he drinks heavily he may develop cardiomyopathy again. Overall clinically stable. Same medications for now. Blood pressure control is good. Thank you for allowing me to participate in the care of your patient. Please feel free to contact me if you have any questions. Coding Level of Care Code Est Pt Level 4 (13200) Diagnoses Benign essential hypertension I10 Pure hypercholesterolemia E78.00 Cardiomyopathy I42.9 Cardiomyopathy type: unspecified CPT Codes EKG - CPT: 57964-[id number], Complete ([id number])
== END 2023-03-20 10:19 | disposition home or self-care (01) ==
PROVIDERS: PCP Internal Medicine; Referring Provider Internal Medicine; Visit Provider Internal Medicine Cardiovascular Disease
DX: I10 Essential (primary) hypertension (principal); E78.00 Pure hypercholesterolemia, unspecified; I42.9 Cardiomyopathy, unspecified
CPT/HCPCS: 93010; 99214

== ENCOUNTER → 2023-03-20 09:34 | Outpatient (BNVA) | payer MEDICARE, SELFPAY | PROVIDERS: PCP Internal Medicine; Referring Provider Internal Medicine; Visit Provider Internal Medicine Cardiovascular Disease | DX: I10 Essential (primary) hypertension (principal); E78.00 Pure hypercholesterolemia, unspecified; I42.9 Cardiomyopathy, unspecified | CPT/HCPCS: 93005; 99212 ==

== ENCOUNTER 2023-05-14 07:19 | Outpatient (REF) | payer MEDICARE, SELFPAY ==
[2023-05-14 11:41] LABS: MANUAL DIFF FLAG NO
[2023-05-14 11:50] LABS: Basophils Absolute Auto 0.1 X10*3/uL (0.0-0.2); Basophils Percent Auto 1.1 % (0-2); Eosinophils Absolute Auto 0.2 X10*3/uL (0.0-0.4); Eosinophils Percent Auto 3.1 % (0-4); Hematocrit 39.5 % (42.0-52.0); Hemoglobin 12.7 g/dl (14.0-18.0); Imm Gran Abs Auto 0.02 X10*3/uL (0.00-0.03); Imm Gran Pct Auto 0.4 % (0.0-0.4); Lymphocytes Absolute Auto 1.8 X10*3/uL (1.2-4.9); Lymphocytes Percent Auto 32.8 % (20-40); Mean Corpuscular HGB Conc 32.2 g/dl (31.0-36.0); Mean Corpuscular Hemoglobin 29.9 pg (27.0-33.0); Mean Corpuscular Volume 92.9 fL (80.0-98.0); Mean Platelet Volume 11.4 fL (9.4-12.4); Monocytes Absolute Auto 0.5 X10*3/uL (0.1-1.2); Monocytes Percent Auto 9.9 % (2-11); Neutrophils Absolute Auto 2.9 x10*3/uL (2.0-8.3); Neutrophils Percent Auto 52.7 % (45-73); Platelet Count 209 X10*3/uL (160-400); Red Blood Count 4.25 X10*6/uL (4.60-5.80); Red Cell Distribution Width 13.2 % (11.0-16.0); White Blood Count 5.5 X10*3/uL (4.8-10.8)
[2023-05-14 11:55] LABS: Estimated Average Glucose 103 mg/dL; Hemoglobin A1c % 5.2 % (<6.0)
[2023-05-14 12:04] LABS: Appearance Urine Clear; Color Urine Yellow; Glucose Urine UA Negative (Negative); Leukocyte Esterase Urine Negative (Negative); Nitrite Urine Negative (Negative); UMIC TRIGGER UACC YES; Urine Blood Trace (Negative); Urine Ketones Negative (Negative); Urine Protein Negative (Neg-Trace)
[2023-05-14 12:09] LABS: Bacteria Urine None Seen (None Seen); Hyaline Casts Urine 0-2 /LPF (0-2); RBC Urine 0-2 /HPF (0-2); Squamous Epithelial Cell Urine 0-2 /HPF (0-2); WBC Urine 0-5 /HPF (0-5)
[2023-05-14 12:24] LABS: Alanine Aminotransferase 18 U/L (0-40); Albumin Level 4.1 g/dL (3.5-5.0); Alkaline Phosphatase 65 U/L (39-117); Anion Gap 15 (12-20); Aspartate Amino Transferase 19 U/L (5-37); Bilirubin Total 0.5 mg/dL (0.0-1.0); Blood Urea Nitrogen 27 mg/dL (9-16); Calcium 9.3 mg/dL (8.4-10.2); Carbon Dioxide 22 mmol/L (22-29); Chloride 110 mmol/L (96-108); Cholesterol 191 mg/dL (<200); Estimated Glomerular Filt Rate 52; Glucose Fasting 98 mg/dL (60-99); HDL Cholesterol 54 mg/dL (>40); LDL Cholesterol Calculated 122 mg/dL (<100); Potassium 4.7 mmol/L (3.3-5.1); Sodium 142 mmol/L (135-145); Total Protein 6.8 g/dL (6.5-8.0); Triglycerides 76 mg/dL (<150); Uric Acid 6.7 mg/dL (3.4-7.0)
[2023-05-14 12:27] LABS: TSH reflex Free T4 2.47 uIU/mL (0.32-4.0); Vitamin D 25-OH Total 49.9 ng/mL (>30)
[2023-05-14 12:53] LABS: Folate 6.9 ng/mL (> or = 4.0); Vitamin B12 908 pg/mL (200-900)
== END 2023-05-14 07:20 | disposition home or self-care (01) ==
LOC: HO.HMGCLDS 07:19
PROVIDERS: PCP Internal Medicine; Visit Provider Internal Medicine
DX: I10 Essential (primary) hypertension (principal); E78.00 Pure hypercholesterolemia, unspecified; R73.01 Impaired fasting glucose; R30.0 Dysuria; M10.9 Gout, unspecified; E53.8 Deficiency of other specified B group vitamins; E55.9 Vitamin D deficiency, unspecified
CPT/HCPCS: 36415; 80053; 80061; 81001; 81003; 82306; 82607; 82746; 83036; 84443; 84550; 85025

== ENCOUNTER 2023-05-22 09:44 | Outpatient (AMB) | payer MEDICARE, SELFPAY ==
[2023-05-22 10:03] VITALS: BP 116/82; PULSE 74; O2SAT 93; BMI 33.4
--- NOTE | 2023-05-22 10:03 | MHC.PC.OV ---
Vital Signs 05/22/23 10:03 Height 6 ft 1 in Weight 253 lb 8 oz BMI 33.4 BP 116/82 Blood Pressure Location Lt brachial Position Sitting Pulse 74 Pulse Source Pulse Oximeter Pulse Oximetry (%) 93 Oxygen Delivery Method Room Air Intake Visit Reasons: 4mt f/u Insurance Claims Representative Required: No Accompanied by: Self / Same As Patient Allergies No Known Allergies Allergy (Verified 05/22/23 10:39) Medication List - Last Reconciled 05/22/23 by Luis Huber MD acetaminophen 650 mg (2 x 325 mg) PO Q6H PRN 30 days allopurinol 200 mg (2 x 100 mg) PO DAILY amlodipine 2.5 mg PO DAILY celecoxib 200 mg PO DAILY PRN 90 days cholecalciferol (vitamin D3) 50 mcg PO DAILY 90 days cyanocobalamin (vitamin B-12) 1,000 mcg sublingual DAILY irbesartan 300 mg PO DAILY metoprolol succinate ER (Toprol XL) 25 mg PO DAILY Tobacco use date assessed: 05/22/23 Fall risk assessment: No Falls in past year Last assessed Fall Risk: 05/22/23 Dental Screening Dental Screen Date: 05/22/23 Did you have a dental visit in the last 12 months?: Yes Did you have a dental problem in the last 6 months where you did not have access to dental care?: No Was dental information given to patient?: Patient has dentist HPI 4mt f/u HPI Details Patient comes in today for his follow up visit States that he feels okay He denies any headaches or dizziness Denies any chest pains, no SOB No nausea/vomiting, no abdominal pain No change in bowel habits noted Notes that he has been experiencing left hip pain (on the lateral side) usually after he lies down on his left side for a while; also notes (+) left hip pain with increased walking Had left hip artrhoplasty with Dr. Edouard less than a year ago in May 2022 and is wondering if his current left hip symptoms are to be expected although he recalls he had no problems at all with his other hip after he had surgery done on it a few years ago Had his follow up labs done last week - to discuss his results States that he already got his flu shot at his local pharmacy recently [facility] Medical History History of blood transfusion Personal history of COVID-19 Osteoarthritis Obesity (BMI 30-39.9) Smoker Peripheral polyneuropathy Lumbar degenerative disc disease Mild anemia Gout Osteoarthritis of hip Impaired fasting glucose Benign essential hypertension Pure hypercholesterolemia Primary osteoarthritis of left hip Surgical History History of left hip replacement S/P total left hip arthroplasty (~06/26/22) Hx of colonoscopy History of surgery History of total right hip arthroplasty Family History Father CVD (cardiovascular disease) Mother Stroke Cancer Brother Healthy adult Sister Healthy adult Social History Household Members: Spouse Housing: House Are you a primary physician primary care sports medicine to a significant other at home: No Do you presently have visiting nurse or other home services: No 75 years or older and lives alone: No Alcohol intake: current Alcohol intake frequency: a few times a month Patient Tobacco Use Status: Current someday Tobacco user Tobacco use type: Cigar e-Cigarette/Vaping Use: Never Used Second Hand Smoke Exposure: No Advance Directives Date on File: 12/14/15 service: No Current occupational status: retired Cognitive needs: No Hearing needs: No Vision needs: No Questionnaire PHQ-9 Over the last 2 weeks, how often have you been bothered by any of the following problems? 1. Little interest or pleasure in doing things: not at all 2. Feeling down, depressed, or hopeless: not at all 3. Trouble falling or staying asleep, or sleeping too much: not at all 4. Feeling tired or having little energy: not at all 5. Poor appetite or overeating: not at all 6. Feeling bad about yourself - or that you are a failure or have let yourself or your family down: not at all 7. Trouble concentrating on things, such as reading the newspaper or watching television: not at all 8. Moving or speaking so slowly that other people could have noticed. Or the opposite - being so fidgety or restless that you have been moving around a lot more than usual: not at all 9. Thoughts that you would be better off or of hurting yourself in some way: not at all Total score: 0 Depression Screening Interpretation: Negative Depression Screening Done: Yes 94462 - PHQ-9 Billing: Yes Source: Developed by Drs. Miki Santos, Karen Chavira, Rene Rojas and colleagues, with an educational william from [employer]. Thrive Questionnaire Date Thrive assessed: 05/22/23 I am a: Patient What is your living situation today?: I have a steady place to live Within the past 12 months, did the food you bought not last and you didn't have the money to get more?: Never true Within the past 12 months, did you worry whether your food would run out before you got money to buy more?: Never true Do you have trouble paying for medicines?: No Do you have trouble getting transportation to medical appointments?: No Do you have trouble paying your heating and electricity bill?: No Do you have trouble taking care of your child, family member or friend?: No Do you have trouble with day-to-day activities such as bathing, preparing meals, shopping, managing finances, etc.?: No Are you currently unemployed and looking for a job?: No Are you interested in more education?: No Please select the resources that you would like help with: None Currently or been in a relationship where the following occur: no concerns reported AUDIT C Alcohol Use Questionnaire (AUDIT-C) 1. How often do you have a drink containing alcohol?: 2-3 times a week 2. How many drinks containing alcohol do you have on a typical day when you are drinking?: 1 or 2 3. How often do you have six or more drinks on one occasion?: Never Total Score: 3 Score Reviewed/Action Taken: Yes EWELINA-7 AMB Questionnaire EWELINA-7 Date EWELINA - 7 assessed: 05/22/23 Feeling nervous, anxious, or on edge: 0 = Not at all Not being able to stop or control worryin = Not at all Worrying too much about different things: 0 = Not at all Trouble relaxin = Not at all Being so restless that it is hard to sit still: 0 = Not at all Becoming easily annoyed or irritable: 0 = Not at all Feeling afraid as if something awful might happen: 0 = Not at all Total EWELINA-7 score (0-4 normal; 5-9 mild; 10-14 moderate; 15-21 severe): 0 Source: Developed by Drs. Miki Santos, Karen Chavira, Rene Rojas and colleagues, with an educational william from [employer] EWELINA-7 Assessment Billing EWELINA-7 Assessment Tool: EWELINA-7 Assessment 10257 Review of Systems Const Denies chills, Denies fatigue, Denies fever(s) and Denies headache(s) ENT Denies dysphagia, Denies dizziness, Denies otalgia, Denies headache(s), Denies odynophagia and Denies sore throat Card Denies chest pain, Denies palpitations and Denies dyspnea Resp Denies chest congestion, Denies cough, Denies dyspnea and Denies wheezing GI Denies abdominal pain, Denies constipation, Denies dysphagia, Denies heartburn, Denies diarrhea, Denies nausea, Denies odynophagia and Denies vomiting Denies dysuria, Denies nocturia and Denies urinary frequency Musc Details: (+) occasional tightness / discomfort over his left flor, often triggered when walking Reports arthralgias (on and off in the left hip - see HPI) Skin/Breast Denies rash Neuro Denies dizziness and Denies headache(s) Endo Denies fatigue and Denies palpitations Aller/Immun Denies wheezing Physical exam (Primary Care) Vital Signs: Last Vital Signs Pulse 74 05/22/23 10:03 BP 116/82 05/22/23 10:03 Pulse Ox 93 05/22/23 10:03 Oxygen Delivery Method Room Air 05/22/23 10:03 BMI result Body Mass Index 33.4 Tobacco/Smoking Status: Tobacco use Status Tobacco use date assessed 05/22/23 05/22/23 10:05 Patient Tobacco Use Status Current someday Tobacco 05/22/23 10:05 Tobacco use type Cigar 05/22/23 10:05 e-Cigarette/Vaping Use Never Used 05/22/23 10:05 PHQ-9: PHQ-9 Score PHQ-9: Total score 0 05/22/23 10:18 Depression Screening Interpretation: Negative Thrive Assessment: Date of Thrive Assessment Date Thrive assessed 05/22/23 05/22/23 10:05 Currently or been in a relationship where the following occur: no concerns reported Const General: no acute distress and alert HENMT Ears: TM's normal bilaterally and EAC's normal Throat: Yes posterior oropharynx normal and Yes tonsils normal (no TP congestion) Neck Neck: Yes no lymphadenopathy and Yes supple Resp Auscultation: clear to auscultation bilaterally, no rales, no rhonchi and no wheezes Cardio Rate: regular rate Rhythm: regular rhythm Heart sounds: no murmurs GI Palpation (GI): Soft to palpation and nontender Auscultation: normal bowel sounds Back/Spine/Pelvis Thoracic/Lumbar Spine: No lumbar spinal tenderness Skin Rashes: no rashes Extrem General: Yes no clubbing, cyanosis or edema Results Reviewed Results Reviewed: Laboratory Tests 05/14/23 07:36 WBC 5.5 Hgb 12.7 L Hct 39.5 L Plt Count 209 Sodium 142 Potassium 4.7 Creatinine 1.33 Estimated GFR 52 Fasting Glucose 98 Hemoglobin A1c % 5.2 Uric Acid 6.7 Calcium 9.3 AST 19 ALT 18 Triglycerides 76 Cholesterol 191 LDL Cholesterol, Calc 122 H HDL Cholesterol 54 Vitamin B12 908 H 25-OH Vitamin D Total 49.9 TSH 2.47 Ur Specific [place] 1.020 Urine Protein Negative Urine Glucose (UA) Negative Urine Blood Trace H Assessment and Plan Assessment & Plan (1) Pure hypercholesterolemia: Code(s): E78.00 - Pure hypercholesterolemia, unspecified Plan: Results of his labs done last week reviewed and discussed with patient - lipids have again improved slightly from previous Reinforced low cholesterol diet Patient continues to decline pharmacotherapy and prefers to continue with diet modification alone to help control his cholesterol level Will recheck his labs and fasting lipids in 4 months for follow up (2) Benign essential hypertension: Code(s): I10 - Essential (primary) hypertension Plan: Reinforced low sodium diet - goal is systolic BP of 130 mm or less Continue Irbesartan 300 mg QD and Amlodipine 2.5 mg QD He is reminded to continue monitoring his blood pressure regularly (3) Impaired fasting glucose: Code(s): R73.01 - Impaired fasting glucose Plan: FBS is now normal at 98 mg/dl on his recent labs; HgbA1c remains normal at 5.2% Reinforced low calorie/low carb diet; exercise as tolerated (4) Cardiomyopathy: Code(s): I42.9 - Cardiomyopathy, unspecified Qualifiers: Cardiomyopathy type: unspecified Qualified Code(s): I42.9 - Cardiomyopathy, unspecified Plan: Echocardiogram done back in May 2022 revealed (+) [id number] LV systolic dysfunction with LVEF of 40-45% with grade 1 diastolic dysfunction; normal cardiac valvular Doppler, normal RV systolic pressure and no gross pericardial effusion Repeat echocardiogram done on 10/22/2022 revealed normal LV cavity size with mildly increased LV wall thickness. LV systolic function is low normal. 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9 - Anemia, unspecified Plan: His H/H appears stable; RBC indices are all normal Will continue to monitor his CBC regularly (7) Lumbar degenerative disc disease: Code(s): M51.36 - Other intervertebral disc degeneration, lumbar region Plan: Reinforced activity and weight-lifting restrictions Celecoxib helps; states that his low back pain has been manageable for a while now (8) Osteoarthritis of hip: Comment: S/P right hip arthroplasty on 12/13/2015 S/P left hip arthroplasty on 06/26/2022 Code(s): M16.9 - Osteoarthritis of hip, unspecified Qualifiers: Osteoarthritis type: primary Laterality: bilateral Qualified Code(s): M16.0 - Bilateral primary osteoarthritis of hip Plan: S/P total left hip arthroplasty with Dr. Edouard at [facility] on 06/26/2022 - states that his surgery went well, with significant improvement of his left hip symptoms/pain and mobility since although he reports (+) pain in his left hip lately (see HPI) Continue Celecoxib 200 mg QD PRN Follow up with orthopedics as scheduled (9) Peripheral polyneuropathy: Code(s): G62.9 - Polyneuropathy, unspecified Plan: EMG and NCV done a couple of years ago showed (+) 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 with a superimposed right L4 radiculopathy; EMG shows an active denervation in the right L4 innervated muscle, with right L4 and L5 nerve root impingement seen on his recent lumbar spine MRI States that his symptoms have been tolerable/manageable lately and he does not require any additional intervention at this time (10) Smoker: Comment: cigar-some day Code(s): F17.200 - Nicotine dependence, unspecified, uncomplicated Plan: Counseled again on smoking cessation (11) Obesity (BMI 30-39.9): Code(s): E66.9 - Obesity, unspecified Plan: Reinforced diet/exercise as tolerated/lose weight Plan Follow up in 4 months Orders: Orders Uric Acid 4 Months M10.9 - Gout, unspecified Vitamin D 25-OH Total 4 Months E55.9 - Vitamin D deficiency, unspecified B Type Natriuretic Peptide 4 Months I42.9 - Cardiomyopathy, unspecified Complete Blood Count Auto Diff 4 Months I10 - Essential (primary) hypertension Lipid Panel 4 Months E78.00 - Pure hypercholesterolemia, unspecified Comprehensive [place]. Panel Fast 4 Months E78.00 - Pure hypercholesterolemia, unspecified UA CC w/rflx Micro + Cult 4 Months R30.0 - Dysuria Hemoglobin A1c 4 Months E11.9 - Type 2 diabetes mellitus without complications Coding Level of Care Code Est Pt Level 4 (86483) Diagnoses Pure hypercholesterolemia E78.00 Benign essential hypertension I10 Impaired fasting glucose R73.01 Cardiomyopathy, unspecified type I42.9 Cardiomyopathy type: unspecified Idiopathic gout, unspecified chronicity, unspecified site M10.00 Gout site: unspecified site Gout etiology: idiopathic Chronicity: unspecified Mild anemia D64.9 Lumbar degenerative disc disease M51.36 Primary osteoarthritis of both hips M16.0 Osteoarthritis type: primary Laterality: bilateral Peripheral polyneuropathy G62.9 Smoker F17.200 Obesity (BMI 30-39.9) E66.9 Additional Codes EWELINA-7 Assessment Billing - EWELINA-7 Assessment Tool: EWELINA-7 Assessment 58347 ([id number])
== END 2023-05-22 10:49 | disposition home or self-care (01) ==
PROVIDERS: PCP Internal Medicine; Visit Provider Internal Medicine
DX: E78.00 Pure hypercholesterolemia, unspecified (principal); I42.9 Cardiomyopathy, unspecified; E66.9 Obesity, unspecified; Z68.33 Body mass index [BMI] 33.0-33.9, adult; I10 Essential (primary) hypertension; R73.01 Impaired fasting glucose; M10.00 Idiopathic gout, unspecified site; D64.9 Anemia, unspecified; F17.290 Nicotine dependence, other tobacco product, uncomplicated; M51.36 Other intervertebral disc degeneration, lumbar region; M16.0 Bilateral primary osteoarthritis of hip; G62.9 Polyneuropathy, unspecified
CPT/HCPCS: 99214

== ENCOUNTER 2023-06-25 08:22 | Outpatient (AMB) | payer MEDICARE, SELFPAY ==
--- NOTE | 2023-06-25 09:01 | AM.OFFWIN_ITS ---
Intake Vital Signs 06/25/23 09:03 Height 6 ft 1 in Weight 253 lb BMI 33.4 BP 122/74 Blood Pressure Location Lt brachial Position Sitting Pulse 78 Pulse Source Pulse Oximeter Temp 97.5 F Temp Source Temporal Artery Scan Pulse Oximetry (%) 94 Oxygen Delivery Method Room Air Intake Visit Reasons: EST/right eye irritation (lobby) Intake Note: pt is here for c/o right eye irritation, since yesterday, denies vision change vision screening: left eye 20/20 right eye 20/25 both eyes 20/20 Patient Tobacco Use Status: Current someday Tobacco user Allergies No Known Allergies Allergy (Verified 06/25/23 09:23) Medication List - Last Reconciled 06/25/23 by Paramjit Shukla MD acetaminophen 650 mg (2 x 325 mg) PO Q6H PRN 30 days allopurinol 200 mg (2 x 100 mg) PO DAILY amlodipine 2.5 mg PO DAILY celecoxib 200 mg PO DAILY PRN 90 days cholecalciferol (vitamin D3) 50 mcg PO DAILY 90 days cyanocobalamin (vitamin B-12) 1,000 mcg sublingual DAILY irbesartan 300 mg PO DAILY metoprolol succinate ER (Toprol XL) 25 mg PO DAILY HPI EST/right eye irritation (lobby) HPI Details 78-year-old male presents to the office for a sick visit. Patient is reporting symptoms of a pinkeye. Symptoms started yesterday. It includes tearing, mucoid discharge from the right eye. Vision is okay. Does not wear contact lenses. [facility] Medical History History of blood transfusion Personal history of COVID-19 Osteoarthritis Obesity (BMI 30-39.9) Smoker Peripheral polyneuropathy Lumbar degenerative disc disease Mild anemia Gout Osteoarthritis of hip Impaired fasting glucose Benign essential hypertension Pure hypercholesterolemia Primary osteoarthritis of left hip Surgical History History of left hip replacement S/P total left hip arthroplasty (~06/26/22) Hx of colonoscopy History of surgery History of total right hip arthroplasty Family History Father CVD (cardiovascular disease) Mother Stroke Cancer Brother Healthy adult Sister Healthy adult Household Members: Spouse Housing: House Are you a primary team primary care physician to a significant other at home: No Do you presently have visiting nurse or other home services: No 75 years or older and lives alone: No Alcohol intake: current Alcohol intake frequency: a few times a month Patient Tobacco Use Status: Current someday Tobacco user Tobacco use type: Cigar e-Cigarette/Vaping Use: Never Used Second Hand Smoke Exposure: No Advance Directives Date on File: 12/14/15 service: No Current occupational status: retired Cognitive needs: No Hearing needs: No Vision needs: No Physical Exam Vital Signs: Last Vital Signs Temp 97.5 F 06/25/23 09:03 Pulse 78 06/25/23 09:03 BP 122/74 06/25/23 09:03 Pulse Ox 94 06/25/23 09:03 Oxygen Delivery Method Room Air 06/25/23 09:03 BMI result Body Mass Index 33.4 Const General: cooperative and healthy appearing Nutritional Appearance: well nourished Orientation/consciousness: patient oriented x3 Limitations: no limitations HEENT Head: Yes normal to inspection Eyes Other: Right eye: Bulbar conjunctiva is congested. Corneas clear. Anterior chambers clear. No digital tenderness. General: appearance normal, both eyes and all related structures Neck Neck: Yes normal visual inspection Chest Chest palpation & inspection: normal palpation of entire chest wall Resp Effort & Inspection: normal respiratory effort Neuro General: patient oriented x3 Assessment & Plan Assessment & Plan (1) Conjunctivitis: Code(s): H10.9 - Unspecified conjunctivitis Plan: Erythromycin ophthalmic ointment prescribed. To applied twice a day. If symptoms do not improve to follow-up here. Coding Level of Care Code Est Pt Level 3 (37306) Diagnoses Conjunctivitis H10.9
[2023-06-25 09:03] VITALS: BP 122/74; PULSE 78; TEMP 36.4; O2SAT 94; BMI 33.4
== END 2023-06-25 10:15 | disposition home or self-care (01) ==
PROVIDERS: PCP Internal Medicine; Visit Provider Internal Medicine
DX: H10.9 Unspecified conjunctivitis (principal)
CPT/HCPCS: 99213

== ENCOUNTER 2023-08-14 09:03 | Outpatient (AMB) | payer MEDICARE, SELFPAY ==
[2023-08-14 09:13] VITALS: BP 130/70; PULSE 81; BMI 34.1
--- NOTE | 2023-08-14 09:13 | MHC.OFFVIS ---
Intake Vital Signs 08/14/23 09:13 Height 6 ft 1 in Weight 258 lb 13.163 oz BMI 34.1 BP 130/70 Blood Pressure Location Lt brachial Position Sitting Pulse 81 Pulse Source Pulse Oximeter Intake Visit Reasons: 5 mth f/up Intake Note: 5 mnth f/up pt its feeling fine. Tube Sizer Operator Required: No Accompanied by: Self / Same As Patient Allergies No Known Allergies Allergy (Verified 06/25/23 09:23) Medication List - Last Reconciled 08/14/23 by Shayne Hunter MD acetaminophen 650 mg (2 x 325 mg) PO Q6H PRN 30 days allopurinol 200 mg (2 x 100 mg) PO DAILY amlodipine 2.5 mg PO DAILY celecoxib 200 mg PO DAILY PRN 90 days cholecalciferol (vitamin D3) 50 mcg PO DAILY 90 days cyanocobalamin (vitamin B-12) 1,000 mcg sublingual DAILY erythromycin 0.5 inches ophthalmic (eye) TID irbesartan 300 mg PO DAILY metoprolol succinate ER (Toprol XL) 25 mg PO DAILY HPI HPI Comments History of Present Illness Details 77-year-old gentleman who is here for follow-up. He was seen for perioperative cardiovascular risk assessment. He underwent echocardiography which showed mildly reduced ejection fraction of 40 45%. He has background history of hypertension. He also was drinking alcohol in the past. He underwent stress test where he was able to exercise for 5 metabolic equivalents and he was advised to proceed with hip surgery which he underwent successful in the past. He is doing well since then. He is denying any significant chest discomfort shortness of breath. Since surgery has not been drinking alcohol. He had repeat echocardiography which showed recovery in EF to low normal 50-55%. He has no clinical heart failure. Is taking medications but he is missing carvedilol in the afternoon. He is asking whether he can be changed to once a day formulation. 03/20/2023: He returns for follow-up. He is denying any chest discomfort shortness of breath. No symptoms/signs of heart failure. He drinks some beers here and there but not drinking regularly. Blood pressure control is good. 08/14/23: He returns for follow-up. Blood pressure is well controlled. Denying any chest discomfort or shortness of breath. He is drinking one beer per week. [facility] Medical History History of blood transfusion Personal history of COVID-19 Osteoarthritis Obesity (BMI 30-39.9) Smoker Peripheral polyneuropathy Lumbar degenerative disc disease Mild anemia Gout Osteoarthritis of hip Impaired fasting glucose Benign essential hypertension Pure hypercholesterolemia Primary osteoarthritis of left hip Surgical History History of left hip replacement S/P total left hip arthroplasty (~06/26/22) Hx of colonoscopy History of surgery History of total right hip arthroplasty Family History Father CVD (cardiovascular disease) Mother Stroke Cancer Brother Healthy adult Sister Healthy adult Social History Household Members: Spouse Housing: House Are you a primary career guidance technician to a significant other at home: No Do you presently have visiting nurse or other home services: No 75 years or older and lives alone: No Alcohol intake: current Alcohol intake frequency: a few times a month Patient Tobacco Use Status: Current someday Tobacco user Tobacco use type: Cigar e-Cigarette/Vaping Use: Never Used Second Hand Smoke Exposure: No Advance Directives Date on File: 12/14/15 service: No Current occupational status: retired Cognitive needs: No Hearing needs: No Vision needs: No Review of Systems Const Reports chills, Reports fatigue, Reports fever(s), Reports frequent falls, Reports weakness, Reports weight gain and Reports weight loss ENT Reports dizziness Card Reports chest pain, Reports leg edema, Reports lightheadedness, Reports palpitations, Reports dyspnea and Reports dyspnea on exertion Resp Reports cough, Reports dyspnea and Reports dyspnea on exertion GI Reports hematochezia Musc Reports abnormal gait, Reports muscle weakness, Reports numbness, Reports radiating pain into limb and Reports tingling Neuro Reports abnormal gait, Reports dizziness, Reports frequent falls, Reports numbness, Reports tingling and Reports weakness Endo Reports fatigue and Reports palpitations Physical Exam Vital Signs: Last Vital Signs Pulse 81 08/14/23 09:13 BP 130/70 08/14/23 09:13 BMI result Body Mass Index 34.1 GENERAL APPEARANCE: in no acute distress, pleasant. NECK: no carotid bruit, no jugular venous distention. SKIN: no suspicious lesions, warm and dry. HEART: no murmurs, regular rate and rhythm. LUNGS: clear to auscultation bilaterally. ABDOMEN: soft, nontender. EXTREMITIES: no edema. PERIPHERAL PULSES: equal. NEUROLOGIC: No gross deficits, AAO X 3 Assessment & Plan Assessment & Plan (1) Benign essential hypertension: Code(s): I10 - Essential (primary) hypertension (2) Pure hypercholesterolemia: Code(s): E78.00 - Pure hypercholesterolemia, unspecified (3) Cardiomyopathy: Code(s): I42.9 - Cardiomyopathy, unspecified Qualifiers: Cardiomyopathy type: unspecified Qualified Code(s): I42.9 - Cardiomyopathy, unspecified Plan Pleasant 77 gentleman who is here for follow-up. 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 By cutting back on alcohol is ejection fraction improved to low normal. Clinically did not develop any heart failure. We discussed again that he is sensitive to alcohol and if he drinks heavily he may develop cardiomyopathy again. Overall clinically stable. Same medications for now. Blood pressure control is good. He will see us back in few months. Clinically stable Thank you for allowing me to participate in the care of your patient. Please feel free to contact me if you have any questions. Coding Level of Care Code Est Pt Level 3 (12842) Diagnoses Benign essential hypertension I10 Pure hypercholesterolemia E78.00 Cardiomyopathy, unspecified type I42.9 Cardiomyopathy type: unspecified
== END 2023-08-14 09:30 | disposition home or self-care (01) ==
PROVIDERS: PCP Internal Medicine; Visit Provider Internal Medicine Cardiovascular Disease
DX: I10 Essential (primary) hypertension (principal); E78.00 Pure hypercholesterolemia, unspecified; I42.9 Cardiomyopathy, unspecified
CPT/HCPCS: 99213

== ENCOUNTER → 2023-08-14 09:03 | Outpatient (BNVA) | payer MEDICARE, SELFPAY | PROVIDERS: PCP Internal Medicine; Visit Provider Internal Medicine Cardiovascular Disease | DX: I10 Essential (primary) hypertension (principal); E78.00 Pure hypercholesterolemia, unspecified; I42.9 Cardiomyopathy, unspecified | CPT/HCPCS: 99212 ==

== ENCOUNTER 2023-09-24 07:08 | Outpatient (REF) | payer MEDICARE, SELFPAY ==
[2023-09-24 10:17] LABS: MANUAL DIFF FLAG NO
[2023-09-24 10:23] LABS: Appearance Urine Clear; Color Urine Yellow; Glucose Urine UA Negative (Negative); Leukocyte Esterase Urine Negative (Negative); Nitrite Urine Negative (Negative); UMIC TRIGGER UACC YES; Urine Blood Small (1+) (Negative); Urine Ketones Negative (Negative); Urine Protein Negative (Neg-Trace)
[2023-09-24 10:36] LABS: B Type Natriuretic Peptide 29 pg/mL (<100)
[2023-09-24 10:37] LABS: Basophils Absolute Auto 0.1 X10*3/uL (0.0-0.2); Eosinophils Absolute Auto 0.2 X10*3/uL (0.0-0.4); Hematocrit 41.4 % (42.0-52.0); Hemoglobin 13.2 g/dl (14.0-18.0); Imm Gran Abs Auto 0.01 X10*3/uL (0.00-0.03); Imm Gran Pct Auto 0.2 % (0.0-0.4); Lymphocytes Absolute Auto 1.8 X10*3/uL (1.2-4.9); Lymphocytes Percent Auto 36.2 % (20-40); Mean Corpuscular HGB Conc 31.9 g/dl (31.0-36.0); Mean Corpuscular Hemoglobin 29.9 pg (27.0-33.0); Mean Corpuscular Volume 93.7 fL (80.0-98.0); Mean Platelet Volume 11.4 fL (9.4-12.4); Monocytes Absolute Auto 0.4 X10*3/uL (0.1-1.2); Monocytes Percent Auto 8.3 % (2-11); Neutrophils Absolute Auto 2.5 x10*3/uL (2.0-8.3); Neutrophils Percent Auto 50.3 % (45-73); Platelet Count 203 X10*3/uL (160-400); Red Blood Count 4.42 X10*6/uL (4.60-5.80); Red Cell Distribution Width 13.1 % (11.0-16.0); White Blood Count 4.9 X10*3/uL (4.8-10.8)
[2023-09-24 10:48] LABS: Bacteria Urine None Seen (None Seen); Hyaline Casts Urine 0-2 /LPF (0-2); Squamous Epithelial Cell Urine 0-2 /HPF (0-2); WBC Urine 0-5 /HPF (0-5)
[2023-09-24 11:39] LABS: Alanine Aminotransferase 16 U/L (0-40); Albumin Level 4.3 g/dL (3.5-5.0); Alkaline Phosphatase 63 U/L (39-117); Anion Gap 11 (12-20); Aspartate Amino Transferase 18 U/L (5-37); Bilirubin Total 0.7 mg/dL (0.0-1.0); Blood Urea Nitrogen 26 mg/dL (9-16); Calcium 9.6 mg/dL (8.4-10.2); Carbon Dioxide 26 mmol/L (22-29); Chloride 110 mmol/L (96-108); Cholesterol 205 mg/dL (<200); Estimated Glomerular Filt Rate > 60; Glucose Fasting 93 mg/dL (60-99); HDL Cholesterol 58 mg/dL (>40); LDL Cholesterol Calculated 128 mg/dL (<100); Potassium 4.6 mmol/L (3.3-5.1); Sodium 142 mmol/L (135-145); Total Protein 6.9 g/dL (6.5-8.0); Triglycerides 99 mg/dL (<150); Vitamin D 25-OH Total 46.1 ng/mL (>30)
[2023-09-24 16:29] LABS: Estimated Average Glucose 105 mg/dL; Hemoglobin A1c % 5.3 % (<6.0)
[2023-09-24 17:08] LABS: Uric Acid 6.8 mg/dL (3.4-7.0)
== END 2023-09-24 07:09 | disposition home or self-care (01) ==
LOC: HO.HMGCLDS 07:08
PROVIDERS: PCP Internal Medicine; Visit Provider Internal Medicine
DX: E78.00 Pure hypercholesterolemia, unspecified (principal); E11.9 Type 2 diabetes mellitus without complications; M10.9 Gout, unspecified; E55.9 Vitamin D deficiency, unspecified; I42.9 Cardiomyopathy, unspecified; I10 Essential (primary) hypertension; R30.0 Dysuria
CPT/HCPCS: 36415; 80053; 80061; 81001; 82306; 83036; 83880; 84550; 85025

== ENCOUNTER 2023-10-01 09:17 | Outpatient (AMB) | payer MEDICARE, SELFPAY ==
[2023-10-01 09:24] VITALS: BP 132/80; PULSE 70; O2SAT 95; BMI 34.2
--- NOTE | 2023-10-01 09:24 | MHC.PC.OV ---
Vital Signs 10/01/23 09:24 Height 6 ft 1 in Weight 259 lb 4 oz BMI 34.2 BP 132/80 Blood Pressure Location Lt brachial Position Sitting Pulse 70 Pulse Source Pulse Oximeter Pulse Oximetry (%) 95 Oxygen Delivery Method Room Air Intake Visit Reasons: HTN, hyperlipidemia Marketing Agent Required: No Accompanied by: Self / Same As Patient Allergies No Known Allergies Allergy (Verified 10/01/23 09:56) Medication List - Last Reconciled 10/01/23 by Luis Huber MD acetaminophen 650 mg (2 x 325 mg) PO Q6H PRN 30 days allopurinol 200 mg (2 x 100 mg) PO DAILY amlodipine 2.5 mg PO DAILY celecoxib 200 mg PO DAILY PRN 90 days cholecalciferol (vitamin D3) 50 mcg PO DAILY 90 days cyanocobalamin (vitamin B-12) 1,000 mcg sublingual DAILY erythromycin 0.5 inches ophthalmic (eye) TID irbesartan 300 mg PO DAILY metoprolol succinate ER (Toprol XL) 25 mg PO DAILY Tobacco use date assessed: 10/01/23 Fall risk assessment: No Falls in past year Last assessed Fall Risk: 10/01/23 Dental Screening Dental Screen Date: 10/01/23 Did you have a dental visit in the last 12 months?: Yes Did you have a dental problem in the last 6 months where you did not have access to dental care?: No Was dental information given to patient?: Patient has dentist HPI HTN, hyperlipidemia HPI Details Patient comes in today for his follow up visit States that he feels okay He denies any headaches or dizziness Denies any chest pains, no SOB No nausea/vomiting, no abdominal pain No change in bowel habits noted Had his follow up labs done last week - to discuss his results [facility] Medical History History of blood transfusion Personal history of COVID-19 Osteoarthritis Obesity (BMI 30-39.9) Smoker Peripheral polyneuropathy Lumbar degenerative disc disease Mild anemia Gout Osteoarthritis of hip Impaired fasting glucose Benign essential hypertension Pure hypercholesterolemia Primary osteoarthritis of left hip Surgical History History of left hip replacement S/P total left hip arthroplasty (~06/26/22) Hx of colonoscopy History of surgery History of total right hip arthroplasty Family History Father CVD (cardiovascular disease) Mother Stroke Cancer Brother Healthy adult Sister Healthy adult Social History Household Members: Spouse Housing: House Are you a primary pediatric care coordinator to a significant other at home: No Do you presently have visiting nurse or other home services: No 75 years or older and lives alone: No Alcohol intake: current Alcohol intake frequency: a few times a month Patient Tobacco Use Status: Current someday Tobacco user Tobacco use type: Cigar e-Cigarette/Vaping Use: Never Used Second Hand Smoke Exposure: No Advance Directives Date on File: 12/14/15 service: No Current occupational status: retired Cognitive needs: No Hearing needs: No Vision needs: No Questionnaire PHQ-9 Over the last 2 weeks, how often have you been bothered by any of the following problems? 1. Little interest or pleasure in doing things: not at all 2. Feeling down, depressed, or hopeless: not at all 3. Trouble falling or staying asleep, or sleeping too much: not at all 4. Feeling tired or having little energy: not at all 5. Poor appetite or overeating: not at all 6. Feeling bad about yourself - or that you are a failure or have let yourself or your family down: not at all 7. Trouble concentrating on things, such as reading the newspaper or watching television: not at all 8. Moving or speaking so slowly that other people could have noticed. Or the opposite - being so fidgety or restless that you have been moving around a lot more than usual: not at all 9. Thoughts that you would be better off or of hurting yourself in some way: not at all Total score: 0 Depression Screening Interpretation: Negative Depression Screening Done: Yes 33442 - PHQ-9 Billing: Yes Source: Developed by Drs. Miki Santos, Karen Chavira, Rene Rojas and colleagues, with an educational william from [employer]. Thrive Questionnaire Date Thrive assessed: 10/01/23 I am a: Patient What is your living situation today?: I have a steady place to live Within the past 12 months, did the food you bought not last and you didn't have the money to get more?: Never true Within the past 12 months, did you worry whether your food would run out before you got money to buy more?: Never true Do you have trouble paying for medicines?: No Do you have trouble getting transportation to medical appointments?: No Do you have trouble paying your heating and electricity bill?: No Do you have trouble taking care of your child, family member or friend?: No Do you have trouble with day-to-day activities such as bathing, preparing meals, shopping, managing finances, etc.?: No Are you currently unemployed and looking for a job?: No Are you interested in more education?: No Please select the resources that you would like help with: None Currently or been in a relationship where the following occur: no concerns reported THRIVE Score: 0 AUDIT C Alcohol Use Questionnaire (AUDIT-C) 1. How often do you have a drink containing alcohol?: 2-3 times a week 2. How many drinks containing alcohol do you have on a typical day when you are drinking?: 1 or 2 3. How often do you have six or more drinks on one occasion?: Never Total Score: 3 Score Reviewed/Action Taken: Yes EWELINA-7 AMB Questionnaire EWELINA-7 Date EWELINA - 7 assessed: 10/01/23 Feeling nervous, anxious, or on edge: 0 = Not at all Not being able to stop or control worryin = Not at all Worrying too much about different things: 0 = Not at all Trouble relaxin = Not at all Being so restless that it is hard to sit still: 0 = Not at all Becoming easily annoyed or irritable: 0 = Not at all Feeling afraid as if something awful might happen: 0 = Not at all Total EWELINA-7 score (0-4 normal; 5-9 mild; 10-14 moderate; 15-21 severe): 0 Source: Developed by Drs. Miki Santos, Karen Chavira, Rene Rojas and colleagues, with an educational william from [employer]. EWELINA-7 Assessment Billing EWELINA-7 Assessment Tool: EWELINA-7 Assessment 16273 Review of Systems Const Denies fatigue, Denies fever(s) and Denies headache(s) ENT Denies dysphagia, Denies dizziness, Denies otalgia, Denies headache(s), Denies neck pain, Denies odynophagia and Denies sore throat Card Denies chest pain, Denies palpitations and Denies dyspnea Resp Denies cough, Denies dyspnea and Denies wheezing GI Denies abdominal pain, Denies constipation, Denies dysphagia, Denies heartburn, Denies diarrhea, Denies nausea, Denies odynophagia and Denies vomiting Denies dysuria, Denies nocturia and Denies urinary frequency Musc Details: (+) occasional tightness / discomfort over his left flor, often triggered when walking Denies back pain, Reports arthralgias (left hip, on and off ) and Denies neck pain Skin/Breast Denies rash Neuro Denies dizziness and Denies headache(s) Endo Denies fatigue and Denies palpitations Aller/Immun Denies wheezing Physical exam (Primary Care) Vital Signs: Last Vital Signs Pulse 70 10/01/23 09:24 BP 132/80 10/01/23 09:24 Pulse Ox 95 10/01/23 09:24 Oxygen Delivery Method Room Air 10/01/23 09:24 BMI result Body Mass Index 34.2 Tobacco/Smoking Status: Tobacco use Status Tobacco use date assessed 10/01/23 10/01/23 09:26 Patient Tobacco Use Status Current someday Tobacco 10/01/23 09:26 Tobacco use type Cigar 10/01/23 09:26 e-Cigarette/Vaping Use Never Used 10/01/23 09:26 PHQ-9: PHQ-9 Score PHQ-9: Total score 0 10/01/23 09:26 Depression Screening Interpretation: Negative Thrive Assessment: Date of Thrive Assessment Date Thrive assessed 10/01/23 10/01/23 09:26 Currently or been in a relationship where the following occur: no concerns reported Const General: no acute distress and alert HENMT Ears: TM's normal bilaterally and EAC's normal Throat: Yes posterior oropharynx normal and Yes tonsils normal (no TP congestion) Neck Neck: Yes no lymphadenopathy and Yes supple Resp Auscultation: clear to auscultation bilaterally, no rales and no wheezes Cardio Rate: regular rate Rhythm: regular rhythm Heart sounds: no murmurs GI Palpation (GI): Soft to palpation and nontender Auscultation: normal bowel sounds Back/Spine/Pelvis Thoracic/Lumbar Spine: No lumbar spinal tenderness Skin Rashes: no rashes Extrem General: Yes no clubbing, cyanosis or edema Results Reviewed Results Reviewed: Laboratory Tests 09/24/23 09/24/23 09/24/23 07:22 07:22 07:30 WBC 4.9 Hgb 13.2 L Hct 41.4 L Plt Count 203 Sodium 142 Potassium 4.6 Creatinine 1.16 Estimated GFR > 60 Fasting Glucose 93 Hemoglobin A1c % 5.3 Uric Acid 6.8 Calcium 9.6 AST 18 ALT 16 B-Natriuretic Peptide 29 Triglycerides 99 Cholesterol 205 H LDL Cholesterol, Calc 128 H HDL Cholesterol 58 25-OH Vitamin D Total 46.1 Ur Specific [place] 1.020 Urine Protein Negative Urine Glucose (UA) Negative Urine Blood Small (1+) H Urine Nitrite Negative Ur Leukocyte Esterase 09/24/23 07:30 WBC Hgb Hct Plt Count Sodium Potassium Creatinine Estimated GFR Fasting Glucose Hemoglobin A1c % Uric Acid Calcium AST ALT B-Natriuretic Peptide Triglycerides Cholesterol LDL Cholesterol, Calc HDL Cholesterol 25-OH Vitamin D Total Ur Specific [place] Urine Protein Urine Glucose (UA) Urine Blood Urine Nitrite Ur Leukocyte Esterase Negative Assessment and Plan Assessment & Plan (1) Pure hypercholesterolemia: Code(s): E78.00 - Pure hypercholesterolemia, unspecified Plan: Results of his labs done last week reviewed and discussed with patient Reinforced low cholesterol diet Patient continues to decline pharmacotherapy and prefers to continue with diet modification alone in controlling his cholesterol level Will recheck his labs and fasting lipids in 4 months for follow up (2) Benign essential hypertension: Code(s): I10 - Essential (primary) hypertension Plan: Reinforced low sodium diet - goal is systolic BP of 130 mm or less Continue Irbesartan 300 mg QD and Amlodipine 2.5 mg QD He is reminded to continue monitoring his blood pressure regularly (3) Impaired fasting glucose: Code(s): R73.01 - Impaired fasting glucose Plan: FBS is now normal at 93 mg/dl on his recent labs; HgbA1c remains normal at 5.3% Reinforced low calorie/low carb diet; exercise as tolerated (4) Cardiomyopathy: Code(s): I42.9 - Cardiomyopathy, unspecified Qualifiers: Cardiomyopathy type: unspecified Qualified Code(s): I42.9 - Cardiomyopathy, unspecified Plan: Echocardiogram done back in May 2022 revealed (+) [id number] LV systolic dysfunction with LVEF of 40-45% with grade 1 diastolic dysfunction; normal cardiac valvular Doppler, normal RV systolic pressure and no gross pericardial effusion Repeat echocardiogram done on 10/22/2022 revealed normal LV cavity size with mildly increased LV wall thickness. LV systolic function is low normal. 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 and should continue to improve or at least stabilize with alcohol cessation - he is encouraged on staying sober and to continue to avoid drinking any alcohol completely Follow up with cardiology as scheduled (5) Gout: Code(s): M10.9 - Gout, unspecified Qualifiers: Gout site: unspecified site Gout etiology: idiopathic Chronicity: unspecified Qualified Code(s): M10.00 - Idiopathic gout, unspecified site Plan: His serum uric acid level remains normal on his recent labs; patient has not had any acute gout flares for a while now Reinforced low purine diet Continue Allopurinol 200 mg QD (6) Mild anemia: Code(s): D64.9 - Anemia, unspecified Plan: His H/H appears stable and has improved slightly from previous; his RBC indices are again all normal Will continue to monitor his CBC regularly (7) Lumbar degenerative disc disease: Code(s): M51.36 - Other intervertebral disc degeneration, lumbar region Plan: Reinforced activity and weight-lifting restrictions States that Celecoxib helps with his back pain and that his low back pain has been manageable for a while now (8) Osteoarthritis of hip: Comment: S/P right hip arthroplasty on 12/13/2015 S/P left hip arthroplasty on 06/26/2022 Code(s): M16.9 - Osteoarthritis of hip, unspecified Qualifiers: Osteoarthritis type: primary Laterality: bilateral Qualified Code(s): M16.0 - Bilateral primary osteoarthritis of hip Plan: S/P total left hip arthroplasty with Dr. 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 with a superimposed right L4 radiculopathy; EMG shows an active denervation in the right L4 innervated muscle, with right L4 and L5 nerve root impingement seen on his recent lumbar spine MRI States that his symptoms have been tolerable/manageable lately and he does not require any additional intervention at this time (10) Smoker: Comment: cigar-some day Code(s): F17.200 - Nicotine dependence, unspecified, uncomplicated Plan: Counseled again on smoking cessation (11) Obesity (BMI 30-39.9): Code(s): E66.9 - Obesity, unspecified Plan: Reinforced diet/exercise as tolerated/lose weight Plan Follow up in 4 months Orders: Orders Complete Blood Count Auto Diff 4 Months D64.9 - Anemia, unspecified Comprehensive [place]. Panel Fast 4 Months E78.00 - Pure hypercholesterolemia, unspecified Uric Acid 4 Months M10.9 - Gout, unspecified Vitamin D 25-OH Total 4 Months E55.9 - Vitamin D deficiency, unspecified Lipid Panel 4 Months E78.00 - Pure hypercholesterolemia, unspecified TSH reflex Free T4 4 Months E78.00 - Pure hypercholesterolemia, unspecified UA CC w/rflx Micro + Cult 4 Months R30.0 - Dysuria Vitamin B12 and Folate 4 Months E53.8 - Deficiency of other specified B group vitamins Coding Level of Care Code Est Pt Level 4 (44884) Diagnoses Pure hypercholesterolemia E78.00 Benign essential hypertension I10 Impaired fasting glucose R73.01 Cardiomyopathy, unspecified type I42.9 Cardiomyopathy type: unspecified Idiopathic gout, unspecified chronicity, unspecified site M10.00 Gout site: unspecified site Gout etiology: idiopathic Chronicity: unspecified Mild anemia D64.9 Lumbar degenerative disc disease M51.36 Primary osteoarthritis of both hips M16.0 Osteoarthritis type: primary Laterality: bilateral Peripheral polyneuropathy G62.9 Smoker F17.200 Obesity (BMI 30-39.9) E66.9 Additional Codes EWELINA-7 Assessment Billing - EWELINA-7 Assessment Tool: EWELINA-7 Assessment 12932 ([id number])
== END 2023-10-01 10:04 | disposition home or self-care (01) ==
PROVIDERS: PCP Internal Medicine; Visit Provider Internal Medicine
DX: E78.00 Pure hypercholesterolemia, unspecified (principal); I42.9 Cardiomyopathy, unspecified; I10 Essential (primary) hypertension; R73.01 Impaired fasting glucose; M10.00 Idiopathic gout, unspecified site; D64.9 Anemia, unspecified; M51.36 Other intervertebral disc degeneration, lumbar region; F17.290 Nicotine dependence, other tobacco product, uncomplicated; Z68.34 Body mass index [BMI] 34.0-34.9, adult; E66.9 Obesity, unspecified; M16.0 Bilateral primary osteoarthritis of hip; G62.9 Polyneuropathy, unspecified
CPT/HCPCS: 99214

== ENCOUNTER 2023-11-19 09:11 | Outpatient (AMB) | payer MEDICARE, SELFPAY ==
[2023-11-19 09:17] VITALS: BP 130/80; PULSE 84; TEMP 36.9; O2SAT 94; BMI 34.4
--- NOTE | 2023-11-19 09:17 | MHC.OFFWIV ---
Intake Vital Signs 11/19/23 09:17 Height 6 ft 1 in Weight 261 lb BMI 34.4 BP 130/80 Blood Pressure Location Rt brachial Position Sitting Pulse 84 Pulse Source Pulse Oximeter Temp 98.4 F Temp Source Oral Pulse Oximetry (%) 94 Oxygen Delivery Method Room Air Intake Visit Reasons: EP Cough, congestion, Sore Chest Intake Note: pt is here for cough, congestion, chest congestion causing chest to be sore. Patient Tobacco Use Status: Current someday Tobacco user Allergies No Known Allergies Allergy (Verified 11/19/23 09:17) Do you need a note to return to daycare/school/sports/work: Yes HPI HPI Comments History of Present Illness Details 70-year-old male presents today complaining of a cough that is increasing intensity over the last 2 days. States he had URI symptoms including sinus pain pressure and congestion that has resolved 3 days ago and he is now left with a cough. Denies any fever chills sweats or myalgias. Denies any chest pain nausea or diaphoresis PFSH Medical History History of blood transfusion Personal history of COVID-19 Osteoarthritis Obesity (BMI 30-39.9) Smoker Peripheral polyneuropathy Lumbar degenerative disc disease Mild anemia Gout Osteoarthritis of hip Impaired fasting glucose Benign essential hypertension Pure hypercholesterolemia Primary osteoarthritis of left hip Surgical History History of left hip replacement S/P total left hip arthroplasty (~06/26/22) Hx of colonoscopy History of surgery History of total right hip arthroplasty Family History Father CVD (cardiovascular disease) Mother Stroke Cancer Brother Healthy adult Sister Healthy adult Social History Household Members: Spouse Housing: House Are you a primary healthcare risk control consultant to a significant other at home: No Do you presently have visiting nurse or other home services: No 75 years or older and lives alone: No Alcohol intake: current Alcohol intake frequency: a few times a month Patient Tobacco Use Status: Current someday Tobacco user Tobacco use type: Cigar e-Cigarette/Vaping Use: Never Used Second Hand Smoke Exposure: No Advance Directives Date on File: 12/14/15 service: No Current occupational status: retired Cognitive needs: No Hearing needs: No Vision needs: No Review of Systems Const All systems reviewed & are unremarkable except as noted in HPI and below Physical Exam Vital Signs: Last Vital Signs Temp 98.4 F 11/19/23 09:17 Pulse 84 11/19/23 09:17 BP 130/80 11/19/23 09:17 Pulse Ox 94 11/19/23 09:17 Oxygen Delivery Method Room Air 11/19/23 09:17 BMI result Body Mass Index 34.4 HEENT Head: Yes normal to inspection, Yes normocephalic and Yes atraumatic Ears: hearing grossly normal bilaterally, external ears normal, TM's normal bilaterally and EAC's normal General nose exam: Normal external nose present Face and sinus: Yes normal facial exam Throat: Yes posterior oropharynx normal Resp Effort & Inspection: normal respiratory effort Auscultation: clear to auscultation bilaterally Cardio Rate: regular rate Rhythm: regular rhythm Heart sounds: S1 normal heart sound present and S2 normal heart sound present Assessment & Plan Assessment & Plan (1) Cough: Code(s): R05.9 - Cough, unspecified Plan The patient was given a short course of steroids to deal with the cough. Follow up with his PCP. Medications: New prednisone prednisone 5 mg: take 8 tablets (40 mg) on Day 1; 7 tablets (35 mg) on Day 2; then decrease by 1 tablet every day until finished PO 21 ea 0RF Patient Instructions: See plan Coding Level of Care Code Est Pt Level 3 (36363) Diagnoses Cough R05.9
== END 2023-11-19 10:06 | disposition home or self-care (01) ==
PROVIDERS: PCP Internal Medicine; Visit Provider Physician Assistant Medical
DX: R05.9 Cough, unspecified (principal)
CPT/HCPCS: 99213

== ENCOUNTER 2024-02-06 06:20 | Outpatient (REF) | payer MEDICARE, SELFPAY ==
[2024-02-06 10:09] LABS: MANUAL DIFF FLAG NO
[2024-02-06 10:20] LABS: Basophils Absolute Auto 0.1 X10*3/uL (0.0-0.2); Eosinophils Absolute Auto 0.2 X10*3/uL (0.0-0.4); Eosinophils Percent Auto 3.5 % (0-4); Hematocrit 38.5 % (42.0-52.0); Hemoglobin 12.4 g/dl (14.0-18.0); Imm Gran Abs Auto 0.01 X10*3/uL (0.00-0.03); Imm Gran Pct Auto 0.2 % (0.0-0.4); Lymphocytes Percent Auto 37.8 % (20-40); Mean Corpuscular HGB Conc 32.2 g/dl (31.0-36.0); Mean Corpuscular Hemoglobin 30.5 pg (27.0-33.0); Mean Corpuscular Volume 94.6 fL (80.0-98.0); Mean Platelet Volume 11.3 fL (9.4-12.4); Monocytes Absolute Auto 0.5 X10*3/uL (0.1-1.2); Monocytes Percent Auto 9.1 % (2-11); Neutrophils Absolute Auto 2.5 x10*3/uL (2.0-8.3); Neutrophils Percent Auto 48.4 % (45-73); Platelet Count 198 X10*3/uL (160-400); Red Blood Count 4.07 X10*6/uL (4.60-5.80); White Blood Count 5.2 X10*3/uL (4.8-10.8)
[2024-02-06 10:27] LABS: Appearance Urine Clear; Color Urine Yellow; Glucose Urine UA Negative (Negative); Leukocyte Esterase Urine Negative (Negative); Nitrite Urine Negative (Negative); PH 6.5 (5.0-9.0); Urine Blood Negative (Negative); Urine Ketones Negative (Negative); Urine Protein Negative (Neg-Trace)
[2024-02-06 10:42] LABS: Alanine Aminotransferase 14 U/L (0-40); Albumin Level 4.1 g/dL (3.5-5.0); Alkaline Phosphatase 57 U/L (39-117); Anion Gap 11 (12-20); Aspartate Amino Transferase 15 U/L (5-37); Bilirubin Total 0.4 mg/dL (0.0-1.0); Blood Urea Nitrogen 31 mg/dL (9-16); Calcium 9.6 mg/dL (8.4-10.2); Carbon Dioxide 26 mmol/L (22-29); Chloride 108 mmol/L (96-108); Cholesterol 180 mg/dL (<200); Estimated Glomerular Filt Rate 51; Glucose Fasting 101 mg/dL (60-99); HDL Cholesterol 49 mg/dL (>40); LDL Cholesterol Calculated 115 mg/dL (<100); Potassium 5.1 mmol/L (3.3-5.1); Sodium 140 mmol/L (135-145); Total Protein 6.6 g/dL (6.5-8.0); Triglycerides 83 mg/dL (<150); Uric Acid 7.3 mg/dL (3.4-7.0)
[2024-02-06 11:06] LABS: TSH reflex Free T4 2.09 uIU/mL (0.32-4.0); Vitamin D 25-OH Total 47.6 ng/mL (>30)
[2024-02-06 11:49] LABS: Folate 6.9 ng/mL (> or = 4.0); Vitamin B12 802 pg/mL (200-900)
== END 2024-02-06 06:21 | disposition home or self-care (01) ==
LOC: HO.HMGCLDS 06:20
PROVIDERS: PCP Internal Medicine; Visit Provider Internal Medicine
DX: D64.9 Anemia, unspecified (principal); E55.9 Vitamin D deficiency, unspecified; E53.8 Deficiency of other specified B group vitamins; M10.9 Gout, unspecified; R30.0 Dysuria; E78.00 Pure hypercholesterolemia, unspecified
CPT/HCPCS: 36415; 80053; 80061; 81003; 82306; 82607; 82746; 84443; 84550; 85025

== ENCOUNTER 2024-02-12 11:14 | Outpatient (AMB) | payer MEDICARE, SELFPAY ==
[2024-02-12 11:17] VITALS: BP 134/72; PULSE 67; O2SAT 95; BMI 33.4
--- NOTE | 2024-02-12 11:17 | A.OFFPC_ITS ---
Vital Signs 02/12/24 11:17 Height 6 ft 1 in Weight 253 lb 0.6 oz BMI 33.4 BP 134/72 Blood Pressure Location Lt brachial Position Sitting Pulse 67 Pulse Source Pulse Oximeter Pulse Oximetry (%) 95 Oxygen Delivery Method Room Air Intake Visit Reasons: follow up Precision Assembler Required: No Allergies No Known Allergies Allergy (Verified 02/12/24 11:44) Medication List - Last Reconciled 02/12/24 by Luis Huber MD acetaminophen 650 mg (2 x 325 mg) PO Q6H PRN 30 days allopurinol 200 mg (2 x 100 mg) PO DAILY amlodipine 2.5 mg PO DAILY celecoxib 200 mg PO DAILY PRN 90 days cholecalciferol (vitamin D3) 50 mcg PO DAILY 90 days cyanocobalamin (vitamin B-12) 1,000 mcg sublingual DAILY irbesartan 300 mg PO DAILY metoprolol succinate ER 25 mg PO DAILY Tobacco use date assessed: 10/01/23 Fall risk assessment: No Falls in past year Last assessed Fall Risk: 02/12/24 Dental Screening Dental Screen Date: 10/01/23 HPI follow up HPI Details Patient comes in today for his follow up visit States that he feels okay exceot for his right foot States that he has hammertoes on his right foot for a while now and they have been bothering him a lot more lately and is now requesting for a referral to see podiatry States that he has seen Dr. Martin in [place] in the past but it has been a few years now since he was last seen He denies any headaches or dizziness Denies any chest pains, no SOB No nausea/vomiting, no abdominal pain No change in bowel habits noted He had his follow up labs done last week - to discuss his results [facility] Medical History History of blood transfusion Personal history of COVID-19 Osteoarthritis Obesity (BMI 30-39.9) Smoker Peripheral polyneuropathy Lumbar degenerative disc disease Mild anemia Gout Osteoarthritis of hip Impaired fasting glucose Benign essential hypertension Pure hypercholesterolemia Primary osteoarthritis of left hip Surgical History History of left hip replacement S/P total left hip arthroplasty (~06/26/22) Hx of colonoscopy History of surgery History of total right hip arthroplasty Family History Father CVD (cardiovascular disease) Mother Stroke Cancer Brother Healthy adult Sister Healthy adult Social History Household Members: Spouse Housing: House Are you a primary senior care assistant to a significant other at home: No Do you presently have visiting nurse or other home services: No 75 years or older and lives alone: No Alcohol intake: current Alcohol intake frequency: a few times a month Patient Tobacco Use Status: Current someday Tobacco user Tobacco use type: Cigar e-Cigarette/Vaping Use: Never Used Second Hand Smoke Exposure: No Advance Directives Date on File: 12/14/15 service: No Current occupational status: retired Cognitive needs: No Hearing needs: No Vision needs: No Questionnaire Thrive Questionnaire Date Thrive assessed: 10/01/23 I am a: Patient What is your living situation today?: I have a steady place to live Within the past 12 months, did the food you bought not last and you didn't have the money to get more?: Never true Within the past 12 months, did you worry whether your food would run out before you got money to buy more?: Never true Do you have trouble paying for medicines?: No Do you have trouble getting transportation to medical appointments?: No Do you have trouble paying your heating and electricity bill?: No Do you have trouble taking care of your child, family member or friend?: No Do you have trouble with day-to-day activities such as bathing, preparing meals, shopping, managing finances, etc.?: No Are you currently unemployed and looking for a job?: No Are you interested in more education?: No Please select the resources that you would like help with: None THRIVE Score: 0 AUDIT C Alcohol Use Questionnaire (AUDIT-C) 1. How often do you have a drink containing alcohol?: 2-3 times a week 2. How many drinks containing alcohol do you have on a typical day when you are drinking?: 1 or 2 3. How often do you have six or more drinks on one occasion?: Never Total Score: 3 Score Reviewed/Action Taken: Yes EWELINA-7 AMB Questionnaire EWELINA-7 Date EWELINA - 7 assessed: 10/01/23 Source: Developed by Drs. Miki Santos, Karen Chavira, Rene Rojas and colleagues, with an educational william from [employer]. Review of Systems Const Denies chills, Denies fatigue, Denies fever(s) and Denies headache(s) ENT Denies dysphagia, Denies dizziness, Denies otalgia, Denies headache(s), Denies neck pain, Denies odynophagia and Denies sore throat Card Denies chest pain, Denies palpitations and Denies dyspnea Resp Denies cough, Denies dyspnea and Denies wheezing GI Denies abdominal pain, Denies constipation, Denies dysphagia, Denies heartburn, Denies diarrhea, Denies nausea, Denies odynophagia and Denies vomiting Denies dysuria, Denies nocturia and Denies urinary frequency Musc Details: (+) occasional tightness / discomfort over his left flor, often triggered when walking; also (+) hammertoes on his right foot and these have been bothering him a lot more lately Denies back pain, Reports arthralgias (left hip, on and off ) and Denies neck pain Skin/Breast Denies rash Neuro Denies dizziness and Denies headache(s) Endo Denies fatigue and Denies palpitations Aller/Immun Denies wheezing Physical exam (Primary Care) Vital Signs: Last Vital Signs Pulse 67 02/12/24 11:17 BP 134/72 02/12/24 11:17 Pulse Ox 95 02/12/24 11:17 Oxygen Delivery Method Room Air 02/12/24 11:17 BMI result Body Mass Index 33.4 Tobacco/Smoking Status: Tobacco use Status Tobacco use date assessed 10/01/23 02/12/24 11:18 Patient Tobacco Use Status Current someday Tobacco 02/12/24 11:18 Tobacco use type Cigar 02/12/24 11:18 e-Cigarette/Vaping Use Never Used 02/12/24 11:18 Thrive Assessment: Date of Thrive Assessment Date Thrive assessed 10/01/23 02/12/24 11:18 Const General: no acute distress and alert HENMT Ears: TM's normal bilaterally and EAC's normal Throat: Yes posterior oropharynx normal and Yes tonsils normal (no TP congestion) Neck Neck: Yes no lymphadenopathy and Yes supple Thyroid: Thyroid normal Resp Auscultation: clear to auscultation bilaterally, no rales and no wheezes Cardio Rate: regular rate Rhythm: regular rhythm Heart sounds: no murmurs GI Palpation (GI): Soft to palpation and nontender Auscultation: normal bowel sounds General: Yes no CVA tenderness Back/Spine/Pelvis Back: no CVA tenderness Thoracic/Lumbar Spine: No lumbar spinal tenderness Skin Rashes: no rashes Extrem General: Yes no clubbing, cyanosis or edema Results Reviewed Results Reviewed: Laboratory Tests 02/06/24 02/06/24 06:44 Unknown WBC 5.2 Hgb 12.4 L Hct 38.5 L Plt Count 198 Sodium 140 Potassium 5.1 Creatinine 1.35 Estimated GFR 51 Fasting Glucose 101 H Uric Acid 7.3 H Calcium 9.6 AST 15 ALT 14 Total Protein 6.6 Triglycerides 83 Cholesterol 180 LDL Cholesterol, Calc 115 H HDL Cholesterol 49 Vitamin B12 802 25-OH Vitamin D Total 47.6 TSH 2.09 Ur Specific [place] 1.020 Urine Protein Negative Urine Glucose (UA) Negative Urine Blood Negative Urine Nitrite Negative Ur Leukocyte Esterase Negative Assessment and Plan Assessment & Plan (1) Pure hypercholesterolemia: Code(s): E78.00 - Pure hypercholesterolemia, unspecified Plan: Results of his labs done last week reviewed and discussed with patient - advised that his cholesterol levels have improved slightly from previous Reinforced low cholesterol diet Patient continues to decline pharmacotherapy and prefers to continue with diet modification alone in controlling his cholesterol level Will recheck his labs and fasting lipids in 4 months for follow up (2) Benign essential hypertension: Code(s): I10 - Essential (primary) hypertension Plan: Reinforced low sodium diet - goal is systolic BP of 130 mm or less Continue Irbesartan 300 mg QD and Amlodipine 2.5 mg QD He is reminded to continue monitoring his blood pressure regularly (3) Impaired fasting glucose: Code(s): R73.01 - Impaired fasting glucose Plan: FBS is now normal at 93 mg/dl on his recent labs; HgbA1c was normal at 5.3% when previously checked Reinforced low calorie/low carb diet; exercise as tolerated (4) Cardiomyopathy: Code(s): I42.9 - Cardiomyopathy, unspecified Qualifiers: Cardiomyopathy type: unspecified Qualified Code(s): I42.9 - Cardiom yopathy, unspecified Plan: Echocardiogram done back in May 2022 revealed (+) [id number] LV systolic dysfunction with LVEF of 40-45% with grade 1 diastolic dysfunction; normal cardiac valvular Doppler, normal RV systolic pressure and no gross pericardial effusion Repeat echocardiogram done on 10/22/2022 revealed normal LV cavity size with mildly increased LV wall thickness. LV systolic function is low normal. 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 and should continue to improve or at least stabilize with alcohol cessation - he is encouraged on staying sober and to continue to avoid drinking any alcohol completely Follow up with cardiology as scheduled (5) Gout: Code(s): M10.9 - Gout, unspecified Qualifiers: Gout site: unspecified site Gout etiology: idiopathic Chronicity: unspecified Qualified Code(s): M10.00 - Idiopathic gout, unspecified site Plan: His serum uric acid level was slightly elevated at 7.3 on his recent labs; patient has not had any acute gout flares for a while now Reinforced low purine diet Continue Allopurinol 200 mg QD (6) Mild anemia: Code(s): D64.9 - Anemia, unspecified Plan: His H/H appears stable and has improved slightly from previous; his RBC indices are again all normal Will continue to monitor his CBC regularly (7) Lumbar degenerative disc disease: Code(s): M51.36 - Other intervertebral disc degeneration, lumbar region Plan: Reinforced activity and weight-lifting restrictions States that Celecoxib helps with his back pain and that his low back pain has been manageable for a while now (8) Osteoarthritis of hip: Comment: S/P right hip arthroplasty on 12/13/2015 S/P left hip arthroplasty on 06/26/2022 Code(s): M16.9 - Osteoarthritis of hip, unspecified Qualifiers: Osteoarthritis type: primary Laterality: bilateral Qualified Code(s): M16.0 - Bilateral primary osteoarthritis of hip Plan: S/P total left hip arthroplasty with Dr. Edouard at [facility] [place] - states that his surgery went well, with significant improvement of his left hip symptoms/pain and mobility since; still has on and off pain in his left hip but these are mostly mild Continue Celecoxib 200 mg QD PRN Follow up with orthopedics as scheduled (9) Peripheral polyneuropathy: Code(s): G62.9 - Polyneuropathy, unspecified Plan: EMG and NCV done a couple of years ago showed (+) 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 with a superimposed right L4 radiculopathy; EMG shows an active denervation in the right L4 innervated muscle, with right L4 and L5 nerve root impingement seen on his recent lumbar spine MRI States that his symptoms have been tolerable/manageable lately and he does not require any additional intervention at this time (10) Hammertoe of right foot: Code(s): M20.41 - Other hammer toe(s) (acquired), right foot Plan: Per request, will refer him to Dr. Martin (podiatry) for further evaluation and management (11) Smoker: Comment: cigar-some day Code(s): F17.200 - Nicotine dependence, unspecified, uncomplicated Plan: Counseled again on smoking cessation (12) Obesity (BMI 30-39.9): Code(s): E66.9 - Obesity, unspecified Plan: Reinforced diet/exercise as tolerated/lose weight Plan Follow up in 4 months Orders: Orders Complete Blood Count Auto Diff 4 Months D64.9 - Anemia, unspecified Comprehensive Paicines. Panel Fast 4 Months E78.00 - Pure hypercholesterolemia, unspecified TSH reflex Free T4 4 Months E78.00 - Pure hypercholesterolemia, unspecified Vitamin D 25-OH Total 4 Months E55.9 - Vitamin D deficiency, unspecified Uric Acid 4 Months M10.9 - Gout, unspecified Lipid Panel 4 Months E78.00 - Pure hypercholesterolemia, unspecified UA CC w/rflx Micro + Cult 4 Months R30.0 - Dysuria Vitamin B12 and Folate 4 Months E53.8 - Deficiency of other specified B group vitamins Referrals Podiatry Referral M20.41 - Other hammer toe(s) (acquired), right foot Coding Level of Care Code Est Pt Level 4 (64458) Complex EM visit Add On G2211 Diagnoses Pure hypercholesterolemia E78.00 Benign essential hypertension I10 Impaired fasting glucose R73.01 Cardiomyopathy, unspecified type I42.9 Cardiomyopathy type: unspecified Idiopathic gout, unspecified chronicity, unspecified site M10.00 Gout site: unspecified site Gout etiology: idiopathic Chronicity: unspecified Mild anemia D64.9 Lumbar degenerative disc disease M51.36 Primary osteoarthritis of both hips M16.0 Osteoarthritis type: primary Laterality: bilateral Peripheral polyneuropathy G62.9 Hammertoe of right foot M20.41 Smoker F17.200 Obesity (BMI 30-39.9) E66.9
== END 2024-02-12 11:58 | disposition home or self-care (01) ==
PROVIDERS: PCP Internal Medicine; Visit Provider Internal Medicine
DX: E78.00 Pure hypercholesterolemia, unspecified (principal); I10 Essential (primary) hypertension; R73.01 Impaired fasting glucose; I42.9 Cardiomyopathy, unspecified; M10.00 Idiopathic gout, unspecified site; D64.9 Anemia, unspecified; M51.36 Other intervertebral disc degeneration, lumbar region; M16.0 Bilateral primary osteoarthritis of hip; G62.9 Polyneuropathy, unspecified; M20.41 Other hammer toe(s) (acquired), right foot
CPT/HCPCS: 99214; G2211

== ENCOUNTER 2024-02-19 08:43 | Outpatient (AMB) | payer MEDICARE, SELFPAY ==
[2024-02-19 08:53] VITALS: BP 120/70; PULSE 65; BMI 33.7
--- NOTE | 2024-02-19 08:53 | A.OFFVIS_ITS ---
Vital Signs 02/19/24 08:53 Height 6 ft 1 in Weight 255 lb 4.725 oz BMI 33.7 BP 120/70 Blood Pressure Location Lt brachial Position Sitting Pulse 65 Pulse Source Monitor Intake Visit Reasons: 6 mth f/up Intake Note: 6 mth f/up with ekg, pt is doing fine Recapper Required: No Accompanied by: Self / Same As Patient Allergies No Known Allergies Allergy (Verified 02/12/24 11:44) Medication List - Last Reconciled 02/19/24 by Shayne Hunter MD acetaminophen 650 mg (2 x 325 mg) PO Q6H PRN 30 days allopurinol 200 mg (2 x 100 mg) PO DAILY amlodipine 2.5 mg PO DAILY celecoxib 200 mg PO DAILY PRN 90 days cholecalciferol (vitamin D3) 50 mcg PO DAILY 90 days cyanocobalamin (vitamin B-12) 1,000 mcg sublingual DAILY irbesartan 300 mg PO DAILY metoprolol succinate ER 25 mg PO DAILY HPI Comments Details: 78-year-old gentleman who is here for follow-up. He was seen for perioperative cardiovascular risk assessment. He underwent echocardiography which showed mildly reduced ejection fraction of 40 45%. He has background history of hype rtension. He also was drinking alcohol in the past. He underwent stress test where he was able to exercise for 5 metabolic equivalents and he was advised to proceed with hip surgery which he underwent successful in the past. He is doing well since then. He is denying any significant chest discomfort shortness of breath. Since surgery has not been drinking alcohol. He had repeat echocardiography which showed recovery in EF to low normal 50-55%. He has no clinical heart failure. Is taking medications but he is missing carvedilol in the afternoon. He is asking whether he can be changed to once a day formulation. 03/20/2023: He returns for follow-up. He is denying any chest discomfort shortness of breath. No symptoms/signs of heart failure. He drinks some beers here and there but not drinking regularly. Blood pressure control is good. 08/14/23: He returns for follow-up. Blood pressure is well controlled. Denying any chest discomfort or shortness of breath. He is drinking one beer per week. 02/19/24: He is here for follow-up. He has been drinking moderately. No chest pain or shortness of breath. Blood pressure is well controlled. [facility] Medical History History of blood transfusion Personal history of COVID-19 Osteoarthritis Obesity (BMI 30-39.9) Smoker Peripheral polyneuropathy Lumbar degenerative disc disease Mild anemia Gout Osteoarthritis of hip Impaired fasting glucose Benign essential hypertension Pure hypercholesterolemia Primary osteoarthritis of left hip Surgical History History of left hip replacement S/P total left hip arthroplasty (~06/26/22) Hx of colonoscopy History of surgery History of total right hip arthroplasty Family History Father CVD (cardiovascular disease) Mother Stroke Cancer Brother Healthy adult Sister Healthy adult Social History Household Members: Spouse Housing: House Are you a primary acute care surgeon to a significant other at home: No Do you presently have visiting nurse or other home services: No 75 years or older and lives alone: No Alcohol intake: current Alcohol intake frequency: a few times a month Patient Tobacco Use Status: Current someday Tobacco user Tobacco use type: Cigar e-Cigarette/Vaping Use: Never Used Second Hand Smoke Exposure: No Advance Directives Date on File: 12/14/15 service: No Current occupational status: retired Cognitive needs: No Hearing needs: No Vision needs: No Review of Systems Const Denies chills, Denies fatigue, Denies fever(s), Denies frequent falls, Denies weakness, Denies weight gain and Denies weight loss ENT Denies dizziness Card Denies chest pain, Denies leg edema, Denies lightheadedness, Denies palpitations, Denies dyspnea and Denies dyspnea on exertion Resp Denies cough, Denies dyspnea and Denies dyspnea on exertion GI Denies hematochezia Musc Denies abnormal gait, Denies muscle weakness, Denies numbness, Denies radiating pain into limb and Denies tingling Neuro Denies abnormal gait, Denies dizziness, Denies frequent falls, Denies numbness, Denies tingling and Denies weakness Endo Denies fatigue and Denies palpitations Physical Exam GENERAL APPEARANCE: in no acute distress, pleasant. NECK: no carotid bruit, no jugular venous distention. SKIN: no suspicious lesions, warm and dry. HEART: no murmurs, regular rate and rhythm. LUNGS: clear to auscultation bilaterally. ABDOMEN: soft, nontender. EXTREMITIES: no edema. PERIPHERAL PULSES: equal. NEUROLOGIC: No gross deficits, AAO X 3 Office Procedures EKG Details: Sinus rhythm 65 beats per minute, left axis deviation, first-degree AV block with ND interval 228 milliseconds, nonspecific T-wave changes in the inferior leads, QTC 413 milliseconds. [id number], Complete Assessment & Plan Assessment & Plan (1) Benign essential hypertension: Code(s): I10 - Essential (primary) hypertension Category: Medical (2) Pure hypercholesterolemia: Code(s): E78.00 - Pure hypercholesterolemia, unspecified Category: Medical (3) Cardiomyopathy: Code(s): I42.9 - Cardiomyopathy, unspecified Category: Medical Qualifiers: Cardiomyopathy type: unspecified Qualified Code(s): I42.9 - Cardiomyopathy, unspecified Plan Pleasant 78 gentleman who is here for follow-up. 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 By cutting back o n alcohol is ejection fraction improved to low normal. Clinically did not develop any heart failure. We discussed again that he is sensitive to alcohol and if he drinks heavily he may develop cardiomyopathy again. Overall clinically stable. Same medications for now. Blood pressure control is good. Last LDL cholesterol is 115, total cholesterol 180, triglycerides 83 and HDL 49. LDL should be less than 100 in his case. He can diet and exercise and a repeat cholesterol testing can be done in few months. Otherwise a moderate intensity statin can be started. Follow-up with us in 1 year. Thank you for allowing me to participate in the care of your patient. Please feel free to contact me if you have any questions. Coding Level of Care Code Est Pt Level 4 (12288) Diagnoses Benign essential hypertension I10 Pure hypercholesterolemia E78.00 Cardiomyopathy, unspecified type I42.9 Cardiomyopathy type: unspecified CPT Codes EKG - CPT: 95855-[id number], Complete ([id number])
== END 2024-02-19 09:11 | disposition home or self-care (01) ==
PROVIDERS: PCP Internal Medicine; Visit Provider Internal Medicine Cardiovascular Disease
DX: I10 Essential (primary) hypertension (principal); E78.00 Pure hypercholesterolemia, unspecified; I42.9 Cardiomyopathy, unspecified
CPT/HCPCS: 93010; 99214

== ENCOUNTER → 2024-02-19 08:43 | Outpatient (BNVA) | payer MEDICARE, SELFPAY | PROVIDERS: PCP Internal Medicine; Visit Provider Internal Medicine Cardiovascular Disease | DX: I10 Essential (primary) hypertension (principal); I42.9 Cardiomyopathy, unspecified; E78.00 Pure hypercholesterolemia, unspecified; R94.31 Abnormal electrocardiogram [ECG] [EKG] | CPT/HCPCS: 93005; 99212 ==

== ENCOUNTER 2024-03-09 09:30 | Outpatient (AMB) | payer MEDICARE, SELFPAY ==
--- NOTE | 2024-03-09 09:43 | MHC.OFFWIV ---
Intake Vital Signs 03/09/24 09:54 Height 6 ft 1 in Weight 249 lb BMI 32.8 BP 130/86 Blood Pressure Location Lt brachial Position Sitting Pulse 73 Pulse Source Pulse Oximeter Temp 98.7 F Temp Source Oral Pulse Oximetry (%) 97 Oxygen Delivery Method Room Air Intake Visit Reasons: Persistent Cough Intake Note: Patient here for persistent cough that has been present for about 1 week and has worsened over time, especially at night. Pt mentioned his grand kids recently had pneumonia and would like to rule that out. Patient Tobacco Use Status: Current someday Tobacco user Allergies No Known Allergies Allergy (Verified 03/09/24 09:55) Do you need a note to return to daycare/school/sports/work: No HPI HPI Comments History of Present Illness Details Patient is a 78-year-old male complaining of 8 days of a cough that seems to be worse at night. He states once the cough starts he just can not stop. He denies any fever, head congestion, chest congestion, headaches, sinus pain ear pain, shortness of breath, chest pain or wheezing or fevers. He states that his grandchildren were all just sick with walking pneumonia. [facility] Medical History History of blood transfusion Personal history of COVID-19 Osteoarthritis Obesity (BMI 30-39.9) Smoker Peripheral polyneuropathy Lumbar degenerative disc disease Mild anemia Gout Osteoarthritis of hip Impaired fasting glucose Benign essential hypertension Pure hypercholesterolemia Primary osteoarthritis of left hip Surgical History History of left hip replacement S/P total left hip arthroplasty (~06/26/22) Hx of colonoscopy History of surgery History of total right hip arthroplasty Family History Father CVD (cardiovascular disease) Mother Stroke Cancer Brother Healthy adult Sister Healthy adult Social History Household Members: Spouse Housing: House Are you a primary career services director to a significant other at home: No Do you presently have visiting nurse or other home services: No 75 years or older and lives alone: No Alcohol intake: current Alcohol intake frequency: a few times a month Patient Tobacco Use Status: Current someday Tobacco user Tobacco use type: Cigar e-Cigarette/Vaping Use: Never Used Second Hand Smoke Exposure: No Advance Directives Date on File: 12/14/15 service: No Current occupational status: retired Cognitive needs: No Hearing needs: No Vision needs: No Review of Systems Const All systems reviewed & are unremarkable except as noted in HPI and below Physical Exam Vital Signs: Last Vital Signs Temp 98.7 F 03/09/24 09:54 Pulse 73 03/09/24 09:54 BP 130/86 03/09/24 09:54 Pulse Ox 97 03/09/24 09:54 Oxygen Delivery Method Room Air 03/09/24 09:54 BMI result Body Mass Index 32.8 Const General: cooperative, healthy appearing, comfortable and no acute distress Orientation/consciousness: patient oriented x3 Limitations: no limitations HEENT Head: Yes normal to inspection Ears: hearing grossly normal bilaterally, external ears normal and TM's normal bilaterally General nose exam: Normal external nose present, Normal nares present and No nasal discharge present Face and sinus: Yes normal facial exam and Yes sinuses nontender Mouth: Normal oral and palatal mucosa present and moist mucous membranes Throat: Yes tonsils normal, Yes uvula midline and Yes posterior oropharynx abnormal (Erythema) Eyes General: appearance normal, both eyes and all related structures Neck Neck: Yes normal visual inspection Resp Effort & Inspection: normal respiratory effort, able to speak in complete sentences, no respiratory distress, not tachypneic, no tripod positioning and no use of accessory muscles Auscultation: clear to auscultation bilaterally Cardio Rate: regular rate Rhythm: regular rhythm Heart sounds: normal S1 and S2 Skin General skin exam: no rashes or lesions noted Neuro General: patient oriented x3 Extrem General: Yes normal to inspection and Yes no clubbing, cyanosis or edema Assessment & Plan Assessment & Plan (1) Atypical pneumonia: Code(s): J18.9 - Pneumonia, unspecified organism Plan: Sent Z-Darwin to pharmacy, recommended if this does not help he could trial at some omeprazole but this is less likely because of the exposure to his sick grandkids and once his cough starts, he can not stop it, less likely GERD. Plan See above Medications: New azithromycin For 250 mg dose pack: take 500 mg today (day 1), then 250 mg for 4 days (days 2-5) PO 6 tabs 0RF Coding Level of Care Code Est Pt Level 3 (79079) Diagnoses Atypical pneumonia J18.9
[2024-03-09 09:54] VITALS: BP 130/86; PULSE 73; TEMP 37.1; O2SAT 97; BMI 32.8
== END 2024-03-09 11:26 | disposition home or self-care (01) ==
PROVIDERS: PCP Internal Medicine; Visit Provider Physician Assistant
DX: J18.9 Pneumonia, unspecified organism (principal)
CPT/HCPCS: 99213

== ENCOUNTER 2024-06-17 07:18 | Outpatient (REF) | payer MEDICARE, SELFPAY ==
[2024-06-17 10:08] LABS: MANUAL DIFF FLAG NO
[2024-06-17 10:16] LABS: Basophils Absolute Auto 0.1 X10*3/uL (0.0-0.2); Basophils Percent Auto 0.6 % (0-2); Eosinophils Absolute Auto 0.2 X10*3/uL (0.0-0.4); Eosinophils Percent Auto 2.5 % (0-4); Hematocrit 38.6 % (42.0-52.0); Hemoglobin 12.9 g/dl (14.0-18.0); Imm Gran Abs Auto 0.03 X10*3/uL (0.00-0.03); Imm Gran Pct Auto 0.4 % (0.0-0.4); Lymphocytes Absolute Auto 1.7 X10*3/uL (1.2-4.9); Lymphocytes Percent Auto 22.5 % (20-40); Mean Corpuscular HGB Conc 33.4 g/dl (31.0-36.0); Mean Corpuscular Hemoglobin 30.7 pg (27.0-33.0); Mean Corpuscular Volume 91.9 fL (80.0-98.0); Mean Platelet Volume 11.7 fL (9.4-12.4); Monocytes Absolute Auto 0.6 X10*3/uL (0.1-1.2); Monocytes Percent Auto 8.2 % (2-11); Neutrophils Absolute Auto 5.1 x10*3/uL (2.0-8.3); Neutrophils Percent Auto 65.8 % (45-73); Platelet Count 203 X10*3/uL (160-400); Red Cell Distribution Width 12.9 % (11.0-16.0); White Blood Count 7.7 X10*3/uL (4.8-10.8)
[2024-06-17 10:18] LABS: Appearance Urine Clear; Color Urine Yellow; Glucose Urine UA Negative (Negative); Leukocyte Esterase Urine Negative (Negative); Nitrite Urine Negative (Negative); PH 6.5 (5.0-9.0); Specific Gravity - Urine 1.015 (1.005-1.025); Urine Blood Negative (Negative); Urine Ketones Negative (Negative); Urine Protein Negative (Neg-Trace)
[2024-06-17 10:49] LABS: Alanine Aminotransferase 19 U/L (0-40); Albumin Level 4.2 g/dL (3.5-5.0); Alkaline Phosphatase 65 U/L (39-117); Anion Gap 11 (12-20); Aspartate Amino Transferase 23 U/L (5-37); Bilirubin Total 0.5 mg/dL (0.0-1.0); Blood Urea Nitrogen 21 mg/dL (9-16); Calcium 9.5 mg/dL (8.4-10.2); Carbon Dioxide 26 mmol/L (22-29); Chloride 108 mmol/L (96-108); Cholesterol 182 mg/dL (<200); Estimated Glomerular Filt Rate > 60; Glucose Fasting 96 mg/dL (60-99); HDL Cholesterol 54 mg/dL (>40); LDL Cholesterol Calculated 111 mg/dL (<100); Potassium 4.3 mmol/L (3.3-5.1); Sodium 141 mmol/L (135-145); TSH reflex Free T4 2.14 uIU/mL (0.32-4.0); Total Protein 6.8 g/dL (6.5-8.0); Triglycerides 88 mg/dL (<150); Vitamin D 25-OH Total 42.2 ng/mL (>30)
[2024-06-17 11:03] LABS: Folate 9.6 ng/mL (> or = 4.0); Vitamin B12 802 pg/mL (200-900)
== END 2024-06-17 07:19 | disposition home or self-care (01) ==
LOC: HO.HMGCLDS 07:18
PROVIDERS: PCP Internal Medicine; Visit Provider Internal Medicine
DX: M10.9 Gout, unspecified (principal); R30.0 Dysuria; D64.9 Anemia, unspecified; E78.00 Pure hypercholesterolemia, unspecified; E55.9 Vitamin D deficiency, unspecified; E53.8 Deficiency of other specified B group vitamins
CPT/HCPCS: 36415; 80053; 80061; 81003; 82306; 82607; 82746; 84443; 84550; 85025

== ENCOUNTER 2024-06-23 08:59 | Outpatient (AMB) | payer MEDICARE, SELFPAY ==
[2024-06-23 09:01] VITALS: BP 130/82; PULSE 63; O2SAT 96; BMI 33.4
--- NOTE | 2024-06-23 09:01 | A.OFFPC_ITS ---
Vital Signs 06/23/24 09:01 Height 6 ft 1 in Weight 253 lb 2 oz BMI 33.4 BP 130/82 Blood Pressure Location Lt brachial Position Sitting Pulse 63 Pulse Source Pulse Oximeter Pulse Oximetry (%) 96 Oxygen Delivery Method Room Air Intake Visit Reasons: HTN, hyperlipidemia, IFG, gout, lumbar DDD Ore Dressing Engineer Required: No Accompanied by: Self / Same As Patient Allergies No Known Allergies Allergy (Verified 06/23/24 09:19) Medication List - Last Reconciled 06/23/24 by Luis Huber MD acetaminophen 650 mg (2 x 325 mg) PO Q6H PRN 30 days allopurinol 200 mg (2 x 100 mg) PO DAILY amlodipine 2.5 mg PO DAILY amoxicillin 2,000 mg (4 x 500 mg) PO ONCE azithromycin For 250 mg dose pack: take 500 mg today (day 1), then 250 mg for 4 days (days 2-5) PO celecoxib 200 mg PO DAILY PRN 90 days cholecalciferol (vitamin D3) 50 mcg PO DAILY 90 days cyanocobalamin (vitamin B-12) 1,000 mcg sublingual DAILY irbesartan 300 mg PO DAILY metoprolol succinate ER 25 mg PO DAILY Tobacco use date assessed: 06/23/24 Fall risk assessment: No Falls in past year Last assessed Fall Risk: 06/23/24 Dental Screening Dental Screen Date: 06/23/24 Did you have a dental visit in the last 12 months?: Yes Did you have a dental problem in the last 6 months where you did not have access to dental care?: No Was dental information given to patient?: Patient has dentist HPI HTN, hyperlipidemia, IFG, gout, lumbar DDD HPI Details Patient comes in today for his follow up visit States that he feels okay He denies any headaches or dizziness Denies any chest pains, no SOB No nausea/vomiting, no abdominal pain No change in bowel habits noted He had his follow up labs done last week - to discuss his results [facility] Medical History History of blood transfusion Personal history of COVID-19 Osteoarthritis Obesity (BMI 30-39.9) Smoker Peripheral polyneuropathy Lumbar degenerative disc disease Mild anemia Gout Osteoarthritis of hip Impaired fasting glucose Benign essential hypertension Pure hypercholesterolemia Primary osteoarthritis of left hip Surgical History History of left hip replacement S/P total left hip arthroplasty (~06/26/22) Hx of colonoscopy History of surgery History of total right hip arthroplasty Family History Father CVD (cardiovascular disease) Mother Stroke Cancer Brother Healthy adult Sister Healthy adult Social History Household Members: Spouse Housing: House Are you a primary respiratory care instructor to a significant other at home: No Do you presently have visiting nurse or other home services: No 75 years or older and lives alone: No Alcohol intake: current Alcohol intake frequency: a few times a month Patient Tobacco Use Status: Current someday Tobacco user Tobacco use type: Cigar e-Cigarette/Vaping Use: Never Used Second Hand Smoke Exposure: No Advance Directives Date on File: 12/14/15 service: No Current occupational status: retired Cognitive needs: No Hearing needs: No Vision needs: No Questionnaire PHQ-9 Over the last 2 weeks, how often have you been bothered by any of the following problems? 1. Little interest or pleasure in doing things: not at all 2. Feeling down, depressed, or hopeless: not at all 3. Trouble falling or staying asleep, or sleeping too much: not at all 4. Feeling tired or having little energy: not at all 5. Poor appetite or overeating: not at all 6. Feeling bad about yourself - or that you are a failure or have let yourself or your family down: not at all 7. Trouble concentrating on things, such as reading the newspaper or watching television: not at all 8. Moving or speaking so slowly that other people could have noticed. Or the opposite - being so fidgety or restless that you have been moving around a lot more than usual: not at all 9. Thoughts that you would be better off or of hurting yourself in some way: not at all Total score: 0 Depression Screening Interpretation: Negative Depression Screening Done: Yes 95178 - PHQ-9 Billing: Yes Source: Developed by Drs. Miki Santos, Karen Chavira, Rene Rojas and colleagues, with an educational william from [employer]. Thrive Questionnaire Date Thrive assessed: 10/01/23 THRIVE Score: 0 EWELINA-7 AMB Questionnaire EWELINA-7 Date EWELINA - 7 assessed: 10/01/23 Source: Developed by Drs. Miki Santos, Karen Chavira, Rene Rojas and colleagues, with an educational william from [employer]. Review of Systems Const Denies chills, Denies fatigue, Denies fever(s) and Denies headache(s) ENT Denies dysphagia, Denies dizziness, Denies otalgia, Denies headache(s), Denies neck pain, Denies odynophagia and Denies sore throat Card Denies chest pain, Denies palpitations and Denies dyspnea Resp Denies chest congestion, Denies cough and Denies dyspnea GI Denies abdominal pain, Denies constipation, Denies dysphagia, Denies heartburn, Denies diarrhea, Denies nausea, Denies odynophagia and Denies vomiting Denies dysuria, Denies nocturia and Denies urinary frequency Musc Denies back pain, Reports arthralgias (left hip, on and off ) and Denies neck pain Skin/Breast Denies rash Neuro Denies dizziness and Denies headache(s) Endo Denies fatigue and Denies palpitations Physical exam (Primary Care) Vital Signs: Last Vital Signs Pulse 63 06/23/24 09:01 BP 130/82 06/23/24 09:01 Pulse Ox 96 06/23/24 09:01 Oxygen Delivery Method Room Air 06/23/24 09:01 BMI result Body Mass Index 33.4 Tobacco/Smoking Status: Tobacco use Status Tobacco use date assessed 06/23/24 06/23/24 09:06 Patient Tobacco Use Status Current someday Tobacco 06/23/24 09:06 Tobacco use type Cigar 06/23/24 09:06 e-Cigarette/Vaping Use Never Used 06/23/24 09:06 PHQ-9: PHQ-9 Score PHQ-9: Total score 0 06/23/24 09:06 Depression Screening Interpretation: Negative Thrive Assessment: Date of Thrive Assessment Date Thrive assessed 10/01/23 06/23/24 09:06 Const General: no acute distress and alert HENMT Ears: TM's normal bilaterally and EAC's normal Throat: Yes posterior oropharynx normal and Yes tonsils normal (no TP congestion) Neck Neck: Yes no lymphadenopathy and Yes supple Thyroid: Thyroid normal Resp Auscultation: clear to auscultation bilaterally, no rales and no wheezes Cardio Rate: regular rate Rhythm: regular rhythm Heart sounds: no murmurs GI Palpation (GI): Soft to palpation and nontender Auscultation: normal bowel sounds General: Yes no CVA tenderness Back/Spine/Pelvis Back: no CVA tenderness Thoracic/Lumbar Spine: No lumbar spinal tenderness Skin Rashes: no rashes Extrem General: Yes no clubbing, cyanosis or edema Results Reviewed Results Reviewed: Laboratory Tests 06/17/24 06/17/24 07:22 07:25 WBC 7.7 Hgb 12.9 L Hct 38.6 L Plt Count 203 Sodium 141 Potassium 4.3 Creatinine 0.96 Estimated GFR > 60 Fasting Glucose 96 Uric Acid 6.0 Calcium 9.5 AST 23 ALT 19 Triglycerides 88 Cholesterol 182 LDL Cholesterol, Calc 111 H HDL Cholesterol 54 Vitamin B12 802 25-OH Vitamin D Total 42.2 TSH 2.14 Ur Specific [place] 1.015 Urine Protein Negative Urine Glucose (UA) Negative Urine Blood Negative Urine Nitrite Negative Ur Leukocyte Esterase Negative Coding Level of Care Code Est Pt Level 4 (75487) Diagnoses Pure hypercholesterolemia E78.00 Benign essential hypertension I10 Impaired fasting glucose R73.01 Cardiomyopathy, unspecified type I42.9 Cardiomyopathy type: unspecified Idiopathic gout, unspecified chronicity, unspecified site M10.00 Gout site: unspecified site Gout etiology: idiopathic Chronicity: unspecified Mild anemia D64.9 Degeneration of intervertebral disc of lumbar region with discogenic back pain M51.360 Disc-related pain type: discogenic back pain only Primary osteoarthritis of both hips M16.0 Osteoarthritis type: primary Laterality: bilateral Peripheral polyneuropathy G62.9 Smoker F17.200 Obesity (BMI 30-39.9) E66.9 Additional Codes PHQ-9 - 79175 - PHQ-9 Billing: Yes ([id number]) Assessment & Plan Assessment & Plan (1) Pure hypercholesterolemia: Code(s): E78.00 - Pure hypercholesterolemia, unspecified Category: Medical Plan: Results of his labs done last week reviewed and discussed with patient Reinforced low cholesterol diet Patient continues to decline pharmacotherapy and prefers to continue with diet modification alone in controlling or keeping his cholesterol levels controlled Will recheck his labs and fasting lipids in 4 months for follow up (2) Benign essential hypertension: Code(s): I10 - Essential (primary) hypertension Category: Medical Plan: Reinforced low sodium diet - goal is systolic BP of 130 mm or less Continue Irbesartan 300 mg QD and Amlodipine 2.5 mg QD He is reminded to continue monitoring his blood pressure regularly (3) Impaired fasting glucose: Code(s): R73.01 - Impaired fasting glucose Category: Medical Plan: His FBS remained normal at 96 mg/dl on his labs done last week; HgbA1c was normal at 5.3% when previously checked Reinforced low calorie/low carb diet; exercise as tolerated (4) Cardiomyopathy: Code(s): I42.9 - Cardiomyopathy, unspecified Category: Medical Qualifiers: Cardiomyopathy type: unspecified Qualified Code(s): I42.9 - Cardiomyopathy, unspecified Plan: Echocardiogram done back in May 2022 revealed (+) [id number] LV systolic dysfunction with LVEF of 40-45% with grade 1 diastolic dysfunction; normal cardiac valvular Doppler, normal RV systolic pressure and no gross pericardial effusion Repeat echocardiogram done on 10/22/2022 revealed normal LV cavity size with mildly increased LV wall thickness. LV systolic function is low normal. 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 and should continue to improve or at least stabilize with alcohol cessation - he is encouraged on staying sober and to continue to avoid drinking any alcohol completely Follow up with cardiology as scheduled (5) Gout: Code(s): M10.9 - Gout, unspecified Category: Medical Qualifiers: Gout site: unspecified site Gout etiology: idiopathic Chronicity: unspecified Qualified Code(s): M10.00 - Idiopathic gout, unspecified site Plan: His serum uric acid level was normal at 6.0 on his recent labs; patient has not had any acute gout flares in a while now Reinforced low purine diet Continue Allopurinol 200 mg QD (6) Mild anemia: Code(s): D64.9 - Anemia, unspecified Category: Medical Plan: His H/H appears stable and has improved slightly from previous; his RBC indices are again all normal Will continue to monitor his CBC regularly (7) Lumbar degenerative disc disease: Code(s): M51.36 - Other intervertebral disc degeneration, lumbar region Category: Medical Qualifiers: Disc-related pain type: discogenic back pain only Qualified Code(s): M51.360 - Other intervertebral disc degeneration, lumbar region with discogenic back pain only Plan: Reinforced activity and weight-lifting restrictions Patient states that Celecoxib helps with his back pain and that his low back pain has been manageable for a while now - he takes Rx only PRN (8) Osteoarthritis of hip: Comment: S/P right hip arthroplasty on 12/13/2015 S/P left hip arthroplasty on 06/26/2022 Code(s): M16.9 - Osteoarthritis of hip, unspecified Category: Medical Qualifiers: Osteoarthritis type: primary Laterality: bilateral Qualified Code(s): M16.0 - Bilateral primary osteoarthritis of hip Plan: S/P bilateral hip arthroplasty over the past 6 to 8 years Patient states that his surgeries went well, with significant improvement of his hip symptoms/pain and mobility post-surgery Continue Celecoxib 200 mg QD PRN Follow up with orthopedics as scheduled (9) Peripheral polyneuropathy: Code(s): G62.9 - Polyneuropathy, unspecified Category: Medical Plan: EMG and NCV done a couple of years ago showed (+) 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 with a superimposed right L4 radiculopathy; EMG shows an active denervation in the right L4 innervated muscle, with right L4 and L5 nerve root impingement seen on his recent lumbar spine MRI States that his symptoms have been tolerable/manageable lately and he does not require any additional intervention at this time (10) Smoker: Comment: cigar-some day Code(s): F17.200 - Nicotine dependence, unspecified, uncomplicated Category: Social Hx Plan: Patient is counseled again on smoking cessation (11) Obesity (BMI 30-39.9): Code(s): E66.9 - Obesity, unspecified Category: Medical Plan: Reinforced diet/exercise as tolerated/lose weight Plan Follow up in 4 months Orders: Orders Complete Blood Count Auto Diff 4 Months D64.9 - Anemia, unspecified Lipid Panel 4 Months E78.00 - Pure hypercholesterolemia, unspecified Comprehensive Robbins. Panel Fast 4 Months E78.00 - Pure hypercholesterolemia, unspecified TSH reflex Free T4 4 Months E78.00 - Pure hypercholesterolemia, unspecified UA CC w/rflx Micro + Cult 4 Months R30.0 - Dysuria Uric Acid 4 Months M10.9 - Gout, unspecified Vitamin B12 and Folate 4 Months E53.8 - Deficiency of other specified B group vitamins B Type Natriuretic Peptide 4 Months I42.9 - Cardiomyopathy, unspecified
== END 2024-06-23 09:32 | disposition home or self-care (01) ==
PROVIDERS: PCP Internal Medicine; Visit Provider Internal Medicine
DX: E78.00 Pure hypercholesterolemia, unspecified (principal); I42.9 Cardiomyopathy, unspecified; E66.9 Obesity, unspecified; Z68.33 Body mass index [BMI] 33.0-33.9, adult; I10 Essential (primary) hypertension; R73.01 Impaired fasting glucose; M10.00 Idiopathic gout, unspecified site; D64.9 Anemia, unspecified; M51.360 Other intervertebral disc degeneration, lumbar region with discogenic back pain only; M16.0 Bilateral primary osteoarthritis of hip; G62.9 Polyneuropathy, unspecified; F17.200 Nicotine dependence, unspecified, uncomplicated

== ENCOUNTER → 2024-06-23 08:59 | Outpatient (BNVA) | payer MEDICARE, SELFPAY | PROVIDERS: PCP Internal Medicine; Visit Provider Internal Medicine | DX: E78.00 Pure hypercholesterolemia, unspecified (principal); I10 Essential (primary) hypertension; R73.01 Impaired fasting glucose; I42.9 Cardiomyopathy, unspecified; M10.00 Idiopathic gout, unspecified site; D64.9 Anemia, unspecified; M51.360 Other intervertebral disc degeneration, lumbar region with discogenic back pain only; M16.0 Bilateral primary osteoarthritis of hip; G62.9 Polyneuropathy, unspecified; E66.9 Obesity, unspecified; F17.200 Nicotine dependence, unspecified, uncomplicated; Z71.6 Tobacco abuse counseling | CPT/HCPCS: 96127; 99212 ==

== ENCOUNTER 2024-10-21 09:02 | Outpatient (AMB) | payer MEDICARE, SELFPAY ==
--- NOTE | 2024-10-21 09:06 | MHC.OFFWIV ---
Intake Vital Signs 10/21/24 09:07 Weight 254 lb BP 122/78 Blood Pressure Location Rt brachial Position Sitting Pulse 72 Pulse Source Pulse Oximeter Temp 98 F Pulse Oximetry (%) 97 Oxygen Delivery Method Room Air Intake Visit Reasons: EP Tick bite, redness in area of bite Intake Note: Patient here for tick bite on left shoulder that he noticed yesterday which he thought was a skin tag and then noticed it was red around it and pulled it out. Patient Tobacco Use Status: Current someday Tobacco user Allergies No Known Allergies Allergy (Verified 10/21/24 09:08) Do you need a note to return to daycare/school/sports/work: No HPI HPI Comments History of Present Illness Details Patient is a 79yo M who presents for tick bite Yesterday noticed it and removed it Large tick Location: L shoulder + redness/swelling since Daughter was over with dog during the weekend No ticks seen elsewhere N hx of lyme + result in the past No symptoms; fever, chills, body aches, headaches, dizziness PFSH Medical History History of blood transfusion Personal history of COVID-19 Osteoarthritis Obesity (BMI 30-39.9) Smoker Peripheral polyneuropathy Lumbar degenerative disc disease Mild anemia Gout Osteoarthritis of hip Impaired fasting glucose Benign essential hypertension Pure hypercholesterolemia Primary osteoarthritis of left hip Surgical History History of left hip replacement S/P total left hip arthroplasty (~06/26/22) Hx of colonoscopy History of surgery History of total right hip arthroplasty Family History Father CVD (cardiovascular disease) Mother Stroke Cancer Brother Healthy adult Sister Healthy adult Social History Household Members: Spouse Housing: House Are you a primary animal care taker to a significant other at home: No Do you presently have visiting nurse or other home services: No 75 years or older and lives alone: No Alcohol intake: current Alcohol intake frequency: a few times a month Patient Tobacco Use Status: Current someday Tobacco user Tobacco use type: Cigar e-Cigarette/Vaping Use: Never Used Second Hand Smoke Exposure: No Advance Directives Date on File: 12/14/15 service: No Current occupational status: retired Cognitive needs: No Hearing needs: No Vision needs: No Review of Systems Const Denies chills, Denies fever(s) and Denies headache(s) ENT Denies dizziness and Denies headache(s) Resp Denies cough Musc Denies myalgias Skin/Breast Reports lesions, Reports erythema, Reports skin pain (L shoulder red/swelling/lesion) and Reports skin swelling Neuro Denies dizziness and Denies headache(s) Physical Exam Vital Signs: Last Vital Signs Temp 98 F 10/21/24 09:07 Pulse 72 10/21/24 09:07 BP 122/78 10/21/24 09:07 Pulse Ox 97 10/21/24 09:07 Oxygen Delivery Method Room Air 10/21/24 09:07 General: Non-toxic, NAD. Speaking full sentences. Skin: Warm dry throughout L anterior shoulder has + erythematous slightly edematous circular region approx 1cm x 1cm. No FB, target lesions or discharge noted. Eye: EOMI Respiratory: No respiratory distress Neurology: Alert. No aphasia or facial droop. Gait without abnormality Psych: Good mood and affect Assessment & Plan Assessment & Plan (1) Tick bite: Code(s): W57.XXXA - Bitten or stung by nonvenomous insect and other nonvenomous arthropods, initial encounter Qualifiers: Encounter type: initial encounter Laterality: left Site of tick bite: shoulder Qualified Code(s): S40.262A - Insect bite (nonvenomous) of left shoulder, initial encounter; W57.XXXA - Bitten or stung by nonvenomous insect and other nonvenomous arthropods, initial encounter Plan: Patient seen and evaluated. Lyme ordered for 2-3 weeks Doxy prophylaxis ordered; take with food. + photosensitivity Patient gave verbal understanding and had no additional questions or concerns at time of discharge All questions answered Orders: Orders Lyme IgG/IgM w/reflex to WB Today W57.XXXA - Bitten or stung by nonvenomous insect and other nonvenomous arthropods, initial encounter Medications: New doxycycline hyclate 200 mg (2 x 100 mg) PO DAILY 2 caps 0RF Coding Level of Care Code Est Pt Level 3 (20625) Diagnoses Tick bite of left shoulder, initial encounter S40.262A; W57.XXXA Encounter type: initial encounter Laterality: left Site of tick bite: shoulder
[2024-10-21 09:07] VITALS: BP 122/78; PULSE 72; TEMP 36.6; O2SAT 97
== END 2024-10-21 09:19 | disposition home or self-care (01) ==
PROVIDERS: PCP Internal Medicine; Visit Provider Physician Assistant
DX: S40.262A Insect bite (nonvenomous) of left shoulder, initial encounter (principal); W57.XXXA Bitten or stung by nonvenomous insect and other nonvenomous arthropods, initial encounter

== ENCOUNTER → 2024-10-21 09:02 | Outpatient (BNVA) | payer MEDICARE, SELFPAY | PROVIDERS: PCP Internal Medicine; Visit Provider Physician Assistant | DX: S40.262A Insect bite (nonvenomous) of left shoulder, initial encounter (principal); W57.XXXA Bitten or stung by nonvenomous insect and other nonvenomous arthropods, initial encounter | CPT/HCPCS: 99212 ==

== ENCOUNTER 2024-10-29 07:24 | Outpatient (REF) | payer MEDICARE, SELFPAY ==
--- OUTSIDE RECORDS SUMMARY | 2024-10-29 07:27 | XMS_ITS ---
[facility] Address [address] [place] [address] Care Team Providers Care Pbx Mechanic Name Role Phone Mayo PEREZ, [place] Primary Care Provider Laura Pace Unavailable [phone] Allergies No Known Allergies REASON FOR VISIT pcp-02/2024, Painful Toe Medications Medication SIG (Take, Route, Frequency, Duration) Notes Start Date End Date Status Vitamin D3 Active Vitamin B12 Active Allopurinol 200 as directed Orally O nce a day Active Metoprolol Succinate ER 25 MG 1 tablet Orally Once a day Active Celecoxib 200 MG 1 capsule with food Orally Once a day Active amLODIPine Besylate 2.5 MG 1 tablet Oral ly Once a day for 30 day(s) Active Irbesartan 300 MG 1 tablet Orally Once a day for 30 day(s) Active Social History Tobacco Use: Social History Observation Description Date Details (start date - stop date) Former Smoker NA - NA Tobacco Use/Smoking Question Answer Notes Are you a: former smoker Additional Findings: Tobacco Non-User Current no n-smoker Alcohol Screen Question Answer Notes Did you have a drink containing alcohol in the p ast year? Yes Points 0 Interpretation Negative Tobacco use other than smoking: Question Answer Notes Are you an other tobacco user? Yes C igar Problems Problem Type SNOMED Code ICD Code Onset Dates Problem Status W/U Status Risk Notes Problem Acquired hammer toe of right foot (981787189643 9105) Hammer toe of right foot (M20.41) Active confirmed Improvement Problem Acquired hammer toe of left foot (555921307555 9103) Hammer toe of left foot (M20.42) Active confirmed Improvement Vital Signs Height 6ft 1in in 05/12/2024 Weight 255 lbs 05/12/2024 BMI 33.64 kg/m2 05/12/2024 Procedures Procedure Date Ordered Date Performed Result Body Sit e 15819 - Tenotomy, open flexor 05/12/2024 N/A Encounters Encounter Location Date Provider Diagnosis [facility] [address] [place] [address] 05/12/2024 Laura Chan Hammer toe of right foot M20.41 Assessments Encounter Date Diagnosis (ICD Code) Assessment Notes Treatment Notes Treatment Clinical Notes Section Notes 05/12/2024 Hammer toe of right foot (ICD-10 - M20.41) Plan Of Treatment Pending Test Test Name Order Date - Tenotomy, open flexor 05/12/2024 Next Appt Details Follow Up: 2 Weeks, Reason: Procedure Notes * Category Sub-Category Detail Notes Podiatry Procedure Tenotomy - Flexor (93600) LOC ATION : T7 INDICATIONS : a painful non-rigid toe contrature at the PIPJ/DIPJ, Resistant to previous conservative treatment, ANESTHESIA : 3cc of 2 percent Lidocaine plain local anesthesic utilizing aseptic technique administered to each involved toe, PREP : The incision site was made surgically clean by applying betadine to the involved area, PROCEDURE : Once anesthesia was achieved, an incision was made at the flexor crease of the interphalangeal joint. The tendon was then transected in a medial to lateral sweeping motion. Any contracted plantar joint capsule was released as well. Steri-strips and a sterile bandage were applied while splinting the toe in a rectus/corrected position, DISPOSITION : The patient tolerated the procedure and anesthesia well, and left the exam room awake, alert, and stable. The patient was instructed to take Tylenol or Motrin for discomfort, rest, ice for 10-15 minutes per hour, elevate the foot, and walk minimally until the next office visit. A surgical shoe was dispensed for ambulation. The patient is to maintain a clean surgical site, keeping it dry until the next visit Progress Notes * George BORGES RDOB:1944 (78 yo M)Acc No.[id number]:05/12/2024 Patient:?George Borges Provider:?Laura Chan DPM :1945???Age:78 Y???Sex:Male Carroll e:05/12/2024 Address:[address] [place], [place] [id number] Pcp:Luis Huber MD Subjective: * Chief Complaints: * ???Pcp-ainful Toe * HPI: ???Toe pain:?Location:?3rd toe, Right foot.?Misc:?Patient presents complaining of painful hammertoe of his right third toe. Patient states he feels a constant pulling underneath his toe. He has tried conservative treatments including - rest, elevation, NSAIDs without relief. He previously discussed a flexor tenotomy with Dr. Martin and would like to proceed with this today..? * ROS:?General/Constitutional:?Nausea?denies.?Vomiting?denies.?Hunger Thirst?denies.?Loss appetite?denies.?Chills?denies.?Fatigue?denies.?Fever?denies.?Night Sweats?denies.?Unexplained weight loss?denies.?Unexplained weight gain?denies.?HEENTM:?Dentures?denies.?Dizziness?denies.?Glasses/contacts?denies.?Retinopathy?de nies.?Blurred/double vision?denies.?TMJ?denies.?Discharge/drainage?denies.?Implants?denies.?Sore throat?denies.?Dental implants?denies.?Hard of hearing ?denies.?Difficulty chewing/swallowing/speaking?denies.?Nose bleeds?denies.?Sore mouth?denies.?Respiratory:?On Oxygen?denies.?Pneumonia/pleurisy?denies.?Bronchitis?denies.?Emphysema?denies.?C oughing?denies.?Cough blood?denies.?Shortness of breath?denies.?Wheezing?denies.?Cardiovascular:?Pacemaker?denies.?MVP?denies.?WPW?denies.?CHF?denies.?Heart attack?denies.?Septal defect?denies.?Rapid beat?denies.?Chest pain ?denies.?Atrial Fib.?denies.?Murmur/Palpitations?denies.?Gastrointestinal:?Hemorrhoids?denies.?Stomach/Abdominal pain?denies.?Dark blood stool?denies.?Irritable bowel ?denies.?Constipation?denies.?Diarrhea?denies.?Hematology:?Swelling?denies.?Clots?denies.?Varicose Veins?denies.?Bruising?denies.?Bleeding problem?denies.?Genitourinary:?Blood urine?denies.?Frequent/Painfu/urination/bladder control?denies.?Kidney stones?denies.?Infection (UTI)?denies.?Nephropathy?denies.?sex trans dis (STD)?denies.?Prostate?denies.?Musculoskeletal:?Hammertoes?denies.?Bunions?denies.?Back Pain?denies.?Muscle Cramps/ Resting?denies.?Muscle cramps / walking?denies.?Generalized aches and pains?denies.?Weakness?denies.?Integ.:?Fermin?denies.?Scars?denies.?Corns/calluses?denies.?Ingrown nails?denies.?Painful nails?denies.?Open Sores?denies.?Rashes?denies.?Neurologic:?Difficulty sleeping?denies.?Brain disorder?denies.?Numbness?denies.?Balance trouble?denies.?Confusion?denies.?Fainting/blackouts?denies.?Tingling?denies.?Tr emors?denies.? * Medical History:? * Surgical History:?right hip replacement 11/2015left hip replacement 2021 * Hospitalization/Major Diagno stic Procedure:?Denies Past Hospitalization * Family History:?Mother: dece ased, Stroke, diagnosed with Family history of arthritis, Unspecified heart disease.?Father: .? * Social History:?Tobacco Use:?Tobacco Use/Smoking?Are you a:?former smoker ?Additional Findings: Tobacco Non-User?Current non-smoker ?Tobacco use other than smoking?Are you an other tobacco user??Yes Cigar ???Drugs/Alcohol:?Drugs?Have you used drugs other than those for medical reasons in the past 12 months??No ?Alcohol Screen?Did you have a drink containing alcohol in the past year??Yes ?Points?0 ?Interpretation?Negative ???Miscellaneous:?Caffeine: yes, 1-2 cups per day. ?Children: yes, 3. ?Exercise: yes, golf, fishing, claming. ?Marital status: . ?Occupation: Retired. * Medications:?TakingVitamin D 3 Vitamin B12 Metoprolol Succinate ER 25 MG Tablet Extended Release 24 Hour 1 tablet Orally Once a dayCelecoxib 200 MG Capsule 1 capsule with food Orally Once a dayAllopurinol 200 mg as directed Orally Once a dayamLODIPine Besylate 2.5 MG Tablet 1 tablet Orally Once a dayIrbesartan 300 MG Tablet 1 tablet Orally Once a dayMedication List reviewed and reconciled with the patientTaking Vitamin D3 Taking Vitamin B12 Taking Metoprolol Succinate ER 25 MG Tablet Extended Release 24 Hour 1 tablet Orally Once a dayTaking Celecoxib 200 MG Capsule 1 capsule with food Orally Once a dayTaking Allopurinol 200 mg as directed Orally Once a dayTaking amLODIPine Besylate 2.5 MG Tablet 1 tablet Orally Once a dayTaking Irbesartan 300 MG Tablet 1 tablet Orally Once a dayMedication List reviewed and reconciled with the patient * Allergies:?N.K.D.A.yes[Aller gies Verified] Objective: * Vitals:?Ht: 6ft 1in, Wt: 255 , BMI: 33.64, Shoe size: 12, Ht-cm: 185.42 cm, Wt- k.67 kg. * Examination: ???Orthopedic: ?MUSCLE STRENGTH:?5/5 all groups in a symmetrical fashion , B/L.?GAIT ABNORMALITY:?pronated, abducted, B/L.?DIGITAL DEFORMITIES:?Digital contracture, PIPJ, 2-5 B/L, incompl-reducible with WB, or to push-up test, no over, nor underlapping.?General Examination: ?GENERAL APPEARANCE:?pleasant, alert, well nourished, well developed, well hydrated, with good attention to hygene/body habitus, and in no acute distress.?ORIENTED:?person,place, and time.?Neurological: ?SENSORY:?Neurological exam reveals intact sensorium, pain sensation normal, vibration sensation intact, pinprick sensation is normal in the lower extremities, Pt denies, anesthesia, burning, paresthesia, tingling, B/L.?BABINSKI REFLEX:?absent.?Vascular: ?DP PULSES(B):?2/4, B/L.?PT PULSES(B):?2/4, B/L.?CAPILLARY FILL TIME:?3 secs. per digit, B/L.?TROPHIC CONDITION-TEXTURE/ELASTICITY/TURGOR/HAIR GROWTH(B):?normal, B/L.?TEMPERTURE GRADIENT(C):?warm to cool, proximal to distal, B/L.?PIGMENTATION:?normal, B/L.?EDEMA(C):?no edema, B/L.?TELANGECTASIA:?absent.?VARICOSITIES:?absent.?Dermatologic: ?SKIN FINDINGS:?Skin exam reveals normal texture, elasticity, and tugor. There are no masses. The interspaces are clear.?Nails: ?NAILS are:?elongated,overgrown,dystrophic,greater than 3mm thick,discolored and friable with crumbly malodorous subungual debris, with pain on palpation, 1-5 bilateral.? Assessment: * Assessment: 1.?Hammer toe of right foot - M20.41? Plan: * Treatment: * Procedures:?Podiatry Procedure:?Tenotomy - Flexor (11544)?LOCATION : T7 INDICATIONS : a painful non-rigid toe contrature at the PIPJ/DIPJ, Resistant to previous conservative treatment, ANESTHESIA : 3cc of 2 percent Lidocaine plain local anesthesic utilizing aseptic technique administered to each involved toe, PREP : The incision site was made surgically clean by applying betadine to the involved area, PROCEDURE : Once anesthesia was achieved, an incision was made at the flexor crease of the interphalangeal joint. The tendon was then transected in a medial to lateral sweeping motion. Any contracted plantar joint capsule was released as well. Steri-strips and a sterile bandage were applied while splinting the toe in a rectus/corrected position, DISPOSITION : The patient tolerated the procedure and anesthesia well, and left the exam room awake, alert, and stable. The patient was instructed to take Tylenol or Motrin for discomfort, rest, ice for 10-15 minutes per hour, elevate the foot, and walk minimally until the next office visit. A surgical shoe was dispensed for ambulation. The patient is to maintain a clean surgical site, keeping it dry until the next visit.? * Procedure Codes:?40651 INCIS ION OF FOOT TENDON(S), Modifiers: T7 * Preventive Medicine:? ??Counseling:?Digital Surgery:?FLEXOR : Minimal Incision digital procedure consisting of Percutaneous Flexor Release was discussed with the patient, including the risks of the procedure vs and not having the procedure, the potential procedure complications, the anesthesia, and the usual post-op course. No guarentees were given. We discussed with the patient the complications such as delayed/non healing, excessive scarring, excessive swelling, failure of procedure, floppy toe, infection, numbness, chronic pain, recurrence of the condition, shortened toe, joint stiffness, and possible loss of limb/life. Alternatives to the procedure were also discussed, including conservative care, The patient would like to procede with surgical treatment.? * Follow Up:?2 Weeks * Images: * Sign off status: Completed true * Provider:?Laura Chan DPM Date:?1 Generated for Verónica angel/Virgil/Michelle on:?10/29/2024 07:27 AM EDT History and Physical Notes * HPI (History of Present Illness) Category Sub-Category Detail Notes Category Not es Toe pain Location: 3rd toe, Right foot Misc: Patient presents com plaining of painful hammertoe of his right third toe. Patient states he feels a constant pulling underneath his toe. He has tried conservative treatments including - rest, elevation, NSAIDs without relief. He previously discussed a flexor tenotomy with Dr. Martin and would like to proceed with this today. Examination Category Sub-Category Detail Notes Category Not es Neurological SENSORY: Neurological exa m reveals intact sensorium, pain sensation normal, vibration sensation intact, pinprick sensation is normal in the lower extremities, Pt denies, anesthesia, burning, paresthesia, tingling, B/L BABINSKI REFLEX: absent Dermatologic SKIN FINDINGS: Skin exam reveal s normal texture, elasticity, and tugor. There are no masses. The interspaces are clear Orthopedic GAIT ABNORMALITY: pronated, abducted, B/L DIGITAL DEFORMITIES: Digital contracture , PIPJ, 2-5 B/L, incompl-reducible with WB, or to push-up test, no over, nor underlapping MUSCLE STRENGTH: 5/5 all groups in a symmetrical fashion , B/L General Examination GENERAL APPEARANCE: pleasant , alert, well nourished, well developed, well hydrated, with good attention to hygene/body habitus, and in no acute distress ORIENTED: person,place, and ti me Vascular DP PULSES (B): 2/4, B/L PT PULSES (B): 2/4, B/L CAPILLARY FILL TIME: 3 secs. per digit, B/L TEMPERTURE GRADIENT (C): warm to cool, p roximal to distal, B/L TROPHIC CONDITION-TEXTURE/ELASTICITY/TURGOR/HAIR GROWTH (B): normal, B/L EDEMA (C): no edema, B/L TELANGECTASIA: absent VARICOSITIES: absent PIGMENTATION: normal, B/L Nails NAILS are: elongated,overgr own,dystrophic,greater than 3mm thick,discolored and friable with crumbly malodorous subungual debris, with pain on palpation, 1-5 bilateral
--- OUTSIDE RECORDS SUMMARY | 2024-10-29 07:27 | XMS_ITS ---
Author Organization [facility] Address [address] [place] [address] Care Team Providers Care Flat Spring Assembler Name Role Phone Mayo PEREZ, Luis Primary Care Provider UnaLaura [facility] [phone] Encounters Encounter Location Date Provider Diagnosis [address] [address] 05/22/2024 Laura Chan Plan Of Treatment No Information Progress Notes * George BORGES RDOB:1944 (79 yo M)Acc No.[id number]:05/22/2024 Patient:?George BORGES Provider:?Laura Chan DPM :1945???Age:78 Y???Sex:Male Carroll e:05/22/2024 Address:[address] [place], [place] [id number] Pcp:Luis Huber MD Subjective: * Chief Complaints: * ??? * Medical History:? Objective: * Vitals:? Assessment: Plan: * Treatment: * Images: * The named appointment provid er may or may not be the originator of this progress note, and it is not deemed complete until electronically signed by the appointment provider. Sign off status: Pending * Provider:?Laura Chan DPM Date:?1 Generated for Printi stanley/Fafei/eTransmitting on:?10/29/2024 07:27 AM EDT
--- OUTSIDE RECORDS SUMMARY | 2024-10-29 07:27 | XMS_ITS ---
Author Organization [facility] Address [address] [place] [address] Care Team Providers Care Rouge Mixer Name Role Phone Mayo PEREZ, [place] Primary Care Provider Laura Pace Unavailable [phone] Allergies No Known Allergies REASON FOR VISIT Pcp-02/18, Painful Toe(s) Medications Medication SIG (Take, Route, Frequency, Duration) Notes Start Date End Date Status Irbesartan 300 MG 1 tablet Orally Once a day for 30 day(s) Active amLODIPine Besylate 2.5 MG 1 tablet Oral ly Once a day for 30 day(s) Active Allopurinol 200 as directed Orally O nce a day Active Celecoxib 200 MG 1 capsule with food Orally Once a day Active Metoprolol Succinate ER 25 MG 1 tablet Orally Once a day Active Vitamin B12 Active Vitamin D3 Active Social History Tobacco Use: Social History Observation Description Date Details (start date - stop date) Former Smoker NA - NA Tobacco Use/Smoking Question Answer Notes Are you a: former smoker Additional Findings: Tobacco Non-User Current no n-smoker Tobacco use other than smoking: Question Answer Notes Are you an other tobacco user? Yes C igar Problems Problem Type SNOMED Code ICD Code Onset Dates Problem Status W/U Status Risk Notes Problem Spasm (20084282) Extensor tendon tightness, contracture (M62.40) Active confirmed Improvement Vital Signs Height 6ft 1in in 05/26/2024 Weight 225 lbs 05/26/2024 BMI 29.68 kg/m2 05/26/2024 Blood pressure systolic 130 mm Hg 05/26/20 24 Blood pressure diastolic 70 mm Hg 024 Encounters Encounter Location Date Provider Diagnosis [facility] [address] [place] [address] 05/26/2024 Laura Chan Hammer toe of right foot M20.41 Assessments Encounter Date Diagnosis (ICD Code) Assessment Notes Treatment Notes Treatment Clinical Notes Section Notes 05/26/2024 Hammer toe of right foot (ICD-10 - M20.41) Improvement Plan Of Treatment Next Appt Details Follow Up: prn, Reason: Progress Notes * George BORGES RDOB:1944 (78 yo M)Acc No.[id number]:05/26/2024 Patient:?George Borges R Provider:?Laura Chan DPM :1945???Age:78 Y???Sex:Male Carroll e:05/26/2024 Address:[address] [place], [place] [id number] Pcp:Luis Huber MD Subjective: * Chief Complaints: * ???Pcp-02/18Painful Toe(s) * HPI: ???Toe pain:?Treatments:?Flexor tenotomy, T7.? * ROS:?General/Constitutional:?Nausea?denies.?Vomiting?denies.?Hunger Thirst?denies.?Loss appetite?denies.?Chills?denies.?Fatigue?denies.?Fever?denies.?Night Sweats?denies.?Unexplained weight loss?denies.?Unexplained [...] smoking?Are you an other tobacco user??Yes Cigar ???Miscellaneous:?Caffeine: yes, 1-2 cups per day. ?Children: [...] reviewed and reconciled with the patient * Allergies:?N.K.D.A.yes[Sharri lyons Verified] Objective: * Vitals:?Ht: 6ft 1in, Wt: 225 , BMI: 29.68, Shoe size: 12, BP: 130/70 mm Hg, Ht- cm: 185.42 cm, Wt-k.06 kg. * Examination: ???Orthopedic: ?DIGITAL DEFORMITIES:?NO FURTHER, Digital contracture, PIPJ, T7 Digit without pain and in rectus position with healed incision site,MPJ Contracture/Dorsal sublux. NOW WELL REDUCED with digit in rectus position with pushup test, incision site, healed.? Assessment: * Assessment: 1.?Hammer toe of right foot - M20.41 (Primary), Improvement? Plan: * Treatment: * Procedure Codes:? * Preventive Medicine:? ??Counseling:?Discussion:?-12: Office or other outpatient visit for the evaluation and management of an established patient, which required a medically appropriate history and/or examination and STRAIGHTFORWARD level of MEDICAL DECISION MAKING, 1 SELF-LIMITED OR MINOR PROBLEM, MINIMAL- NO AMOUNT/COMPLEXITY OF DATA TO BE REVIEWED/ANALYZED, AND MINIMAL RISK OF COMPLICATION/MORBIDITY. The visit on the day of the encounter encompassed interpreting the data and educating the patient as to the nature of their condition, treatment options available according to their individual PMH, meds, allergies, and overall health/living conditions, as well as any potential risks or complications that may occur from a failure to adhere to, and participate in, the recommended course of therapy. The discussion included a complete verbal, and/or written explanation of the examination results, any x-rays taken, the proposed diagnosis, and outline of the treatment plan. A schedule for future care needs was also explained. The patient verbalized an understanding of the instructions at this time and agreed to be an active participant in their treatment. If the patient should think of any questions or concerns after the visit, I have encouraged the patient to call the office, Given recent successful results to treatment, The patient wishes to continue with the present treatment plan for their condition.?F/u Visit:?Given recent successful results to treatment, The patient wishes to continue with the present treatment plan for their condition.? * Follow Up:?prn * Images: * Sign off status: Completed true * Provider:?Laura Chan DPM Date:?1 Generated for Verónica angel/Virgil/Michelle on:?10/29/2024 07:27 AM EDT History and Physical Notes * HPI (History of Present Illness) Category Sub-Category Detail Notes Category Not es Toe pain Treatments: Flexor tenotomy, T7 Examination Category Sub-Category Detail Notes Category Not es Orthopedic DIGITAL DEFORMITIES: NO FURTHER, Digital contracture, PIPJ, T7 Digit without pain and in rectus position with healed incision site,MPJ Contracture/Dorsal sublux. NOW WELL REDUCED with digit in rectus position with pushup test, incision site, healed
[2024-10-29 09:11] LABS: B Type Natriuretic Peptide 21 pg/mL (<100)
[2024-10-29 11:05] LABS: Appearance Urine Clear; Color Urine Yellow; Glucose Urine UA Negative (Negative); Leukocyte Esterase Urine Negative (Negative); Nitrite Urine Negative (Negative); PH 6.5 (5.0-9.0); Urine Blood Negative (Negative); Urine Ketones Negative (Negative); Urine Protein Negative (Neg-Trace)
[2024-10-29 11:24] LABS: MANUAL DIFF FLAG NO
[2024-10-29 11:34] LABS: Basophils Absolute Auto 0.1 X10*3/uL (0.0-0.2); Basophils Percent Auto 1.1 % (0-2); Eosinophils Absolute Auto 0.2 X10*3/uL (0.0-0.4); Eosinophils Percent Auto 4.1 % (0-4); Hematocrit 41.1 % (42.0-52.0); Hemoglobin 13.3 g/dl (14.0-18.0); Imm Gran Abs Auto 0.01 X10*3/uL (0.00-0.03); Imm Gran Pct Auto 0.2 % (0.0-0.4); Lymphocytes Absolute Auto 1.8 X10*3/uL (1.2-4.9); Lymphocytes Percent Auto 33.7 % (20-40); Mean Corpuscular HGB Conc 32.4 g/dl (31.0-36.0); Mean Corpuscular Hemoglobin 30.1 pg (27.0-33.0); Mean Platelet Volume 11.5 fL (9.4-12.4); Monocytes Absolute Auto 0.5 X10*3/uL (0.1-1.2); Monocytes Percent Auto 8.4 % (2-11); Neutrophils Absolute Auto 2.8 x10*3/uL (2.0-8.3); Neutrophils Percent Auto 52.5 % (45-73); Platelet Count 191 X10*3/uL (160-400); Red Blood Count 4.42 X10*6/uL (4.60-5.80); Red Cell Distribution Width 13.2 % (11.0-16.0); White Blood Count 5.3 X10*3/uL (4.8-10.8)
[2024-10-29 12:18] LABS: Alanine Aminotransferase 18 U/L (0-40); Albumin Level 4.2 g/dL (3.5-5.0); Alkaline Phosphatase 66 U/L (39-117); Anion Gap 11 (12-20); Aspartate Amino Transferase 22 U/L (5-37); Bilirubin Total 0.6 mg/dL (0.0-1.0); Blood Urea Nitrogen 20 mg/dL (9-16); Calcium 9.6 mg/dL (8.4-10.2); Carbon Dioxide 27 mmol/L (22-29); Chloride 108 mmol/L (96-108); Cholesterol 199 mg/dL (<200); Estimated Glomerular Filt Rate > 60; Glucose Fasting 94 mg/dL (60-99); HDL Cholesterol 50 mg/dL (>40); LDL Cholesterol Calculated 130 mg/dL (<100); Sodium 141 mmol/L (135-145); TSH reflex Free T4 1.74 uIU/mL (0.32-4.0); Total Protein 6.8 g/dL (6.5-8.0); Triglycerides 96 mg/dL (<150); Uric Acid 6.6 mg/dL (3.4-7.0)
[2024-10-29 12:26] LABS: Folate 10.2 ng/mL (> or = 4.0); Vitamin B12 1140 pg/mL (200-900)
[2024-10-30 10:09] LABS: Lyme Abs Screen <0.90 index
== END 2024-10-29 07:25 | disposition home or self-care (01) ==
LOC: HO.HMGCLDS 07:24
PROVIDERS: PCP Internal Medicine; Referring Provider Physician Assistant; Visit Provider Internal Medicine
DX: E78.00 Pure hypercholesterolemia, unspecified (principal); E53.8 Deficiency of other specified B group vitamins; D64.9 Anemia, unspecified; R30.0 Dysuria; M10.9 Gout, unspecified; I42.9 Cardiomyopathy, unspecified; W57.XXXA Bitten or stung by nonvenomous insect and other nonvenomous arthropods, initial encounter
CPT/HCPCS: 36415; 80053; 80061; 81003; 82607; 82746; 83880; 84443; 84550; 85025; 86617; 86618

== ENCOUNTER 2024-11-05 09:36 | Outpatient (AMB) | payer MEDICARE, SELFPAY ==
[2024-11-05 09:37] VITALS: BP 130/72; PULSE 73; O2SAT 96; BMI 33.6
--- NOTE | 2024-11-05 09:37 | MHC.PC.OV ---
Vital Signs 11/05/24 09:37 Height 6 ft 1 in Weight 254 lb 6 oz BMI 33.6 BP 130/72 Blood Pressure Location Lt brachial Position Sitting Pulse 73 Pulse Source Pulse Oximeter Pulse Oximetry (%) 96 Oxygen Delivery Method Room Air Intake Visit Reasons: 4 month f/u Laboratory Veterinarian Required: No Accompanied by: Self / Same As Patient Allergies No Known Allergies Allergy (Verified 11/05/24 10:09) Medication List - Last Reconciled 11/05/24 by Luis Huber MD acetaminophen 650 mg (2 x 325 mg) PO Q6H PRN 30 days allopurinol 200 mg (2 x 100 mg) PO DAILY amlodipine 2.5 mg PO DAILY celecoxib 200 mg PO DAILY PRN 90 days cholecalciferol (vitamin D3) 50 mcg PO DAILY 90 days cyanocobalamin (vitamin B-12) 1,000 mcg sublingual DAILY irbesartan 300 mg PO DAILY metoprolol succinate ER 25 mg PO DAILY Tobacco use date assessed: 11/05/24 Fall risk assessment: No Falls in past year Last assessed Fall Risk: 11/05/24 Dental Screening Dental Screen Date: 11/05/24 Did you have a dental visit in the last 12 months?: Yes Did you have a dental problem in the last 6 months where you did not have access to dental care?: No Was dental information given to patient?: Patient has dentist HPI 4 month f/u HPI Details Patient comes in today for his follow up visit for his HTN, hyperlipidemia, IFG, gout, OA and lumbar DDD States that he feels okay He denies any headaches or dizziness Denies any chest pains, no SOB No nausea/vomiting, no abdominal pain No change in bowel habits noted He had his follow up labs done last week - to discuss his results [facility] Medical History History of blood transfusion Personal history of COVID-19 Osteoarthritis Obesity (BMI 30-39.9) Smoker Peripheral polyneuropathy Lumbar degenerative disc disease Mild anemia Gout Osteoarthritis of hip Impaired fasting glucose Benign essential hypertension Pure hypercholesterolemia Primary osteoarthritis of left hip Surgical History History of left hip replacement S/P total left hip arthroplasty (~06/26/22) Hx of colonoscopy History of surgery History of total right hip arthroplasty Family History Father CVD (cardiovascular disease) Mother Stroke Cancer Brother Healthy adult Sister Healthy adult Social History Household Members: Spouse Housing: House Are you a primary healthcare business analyst to a significant other at home: No Do you presently have visiting nurse or other home services: No 75 years or older and lives alone: No Alcohol intake: current Alcohol intake frequency: a few times a month Patient Tobacco Use Status: Current someday Tobacco user Tobacco use type: Cigar e-Cigarette/Vaping Use: Never Used Second Hand Smoke Exposure: No Advance Directives Date on File: 12/14/15 service: No Current occupational status: retired Cognitive needs: No Hearing needs: No Vision needs: No Questionnaire PHQ-9 Over the last 2 weeks, how often have you been bothered by any of the following problems? 1. Little interest or pleasure in doing things: not at all 2. Feeling down, depressed, or hopeless: not at all 3. Trouble falling or staying asleep, or sleeping too much: not at all 4. Feeling tired or having little energy: not at all 5. Poor appetite or overeating: not at all 6. Feeling bad about yourself - or that you are a failure or have let yourself or your family down: not at all 7. Trouble concentrating on things, such as reading the newspaper or watching television: not at all 8. Moving or speaking so slowly that other people could have noticed. Or the opposite - being so fidgety or restless that you have been moving around a lot more than usual: not at all 9. Thoughts that you would be better off or of hurting yourself in some way: not at all Total score: 0 Depression Screening Interpretation: Negative Depression Screening Done: Yes 25194 - PHQ-9 Billing: Yes Source: Developed by Drs. Miki Santos, Karen Chavira, Rene Rojas and colleagues, with an educational william from [employer]. Thrive Questionnaire Date Thrive assessed: 11/05/24 I am a: Patient What is your living situation today?: I have a steady place to live Within the past 12 months, did the food you bought not last and you didn't have the money to get more?: Never true Within the past 12 months, did you worry whether your food would run out before you got money to buy more?: Never true Do you have trouble paying for medicines?: No Do you have trouble getting transportation to medical appointments?: No Do you have trouble paying your heating and electricity bill?: No Do you have trouble taking care of your child, family member or friend?: No Do you have trouble with day-to-day activities such as bathing, preparing meals, shopping, managing finances, etc.?: No Are you currently unemployed and looking for a job?: No Are you interested in more education?: No Please select the resources that you would like help with: None Currently or been in a relationship where the following occur: No concerns reported THRIVE Score: 0 AUDIT C Alcohol Use Questionnaire (AUDIT-C) 1. How often do you have a drink containing alcohol?: Monthly or less 2. How many drinks containing alcohol do you have on a typical day when you are drinking?: 1 or 2 3. How often do you have six or more drinks on one occasion?: Never Total Score: 1 Score Reviewed/Action Taken: Yes EWELINA-7 AMB Questionnaire EWELINA-7 Date EWELINA - 7 assessed: 11/05/24 Feeling nervous, anxious, or on edge: 0 = Not at all Not being able to stop or control worryin = Not at all Worrying too much about different things: 0 = Not at all Trouble relaxin = Not at all Being so restless that it is hard to sit still: 0 = Not at all Becoming easily annoyed or irritable: 0 = Not at all Feeling afraid as if something awful might happen: 0 = Not at all Total EWELINA-7 score (0-4 normal; 5-9 mild; 10-14 moderate; 15-21 severe): 0 Source: Developed by Drs. Miki Santos, Karen Chavira, Rene Rojas and colleagues, with an educational william from [employer]. Review of Systems Const Denies chills, Denies fatigue, Denies fever(s) and Denies headache(s) ENT Denies dysphagia, Denies dizziness, Denies otalgia, Denies headache(s), Denies neck pain, Denies odynophagia and Denies sore throat Card Denies chest pain, Denies palpitations and Denies dyspnea Resp Denies chest congestion, Denies cough and Denies dyspnea GI Denies abdominal pain, Denies constipation, Denies dysphagia, Denies heartburn, Denies diarrhea, Denies nausea, Denies odynophagia and Denies vomiting Denies difficulty urinating, Denies dysuria, Denies nocturia and Denies urinary frequency Musc Reports back pain (mild), Reports arthralgias (left hip, on and off ) and Denies neck pain Skin/Breast Denies rash Neuro Denies dizziness and Denies headache(s) Endo Denies fatigue and Denies palpitations Physical exam (Primary Care) Vital Signs: Last Vital Signs Pulse 73 11/05/24 09:37 BP 130/72 11/05/24 09:37 Pulse Ox 96 11/05/24 09:37 Oxygen Delivery Method Room Air 11/05/24 09:37 BMI result Body Mass Index 33.6 Tobacco/Smoking Status: Tobacco use Status Tobacco use date assessed 11/05/24 11/05/24 09:45 Patient Tobacco Use Status Current someday Tobacco 11/05/24 09:45 Tobacco use type Cigar 11/05/24 09:45 e-Cigarette/Vaping Use Never Used 11/05/24 09:45 PHQ-9: PHQ-9 Score PHQ-9: Total score 0 11/05/24 09:45 Depression Screening Interpretation: Negative Thrive Assessment: Date of Thrive Assessment Date Thrive assessed 11/05/24 11/05/24 09:45 Currently or been in a relationship where the following occur: No concerns reported Const General: no acute distress and alert HENMT Ears: TM's normal bilaterally and EAC's normal Throat: Yes posterior oropharynx normal and Yes tonsils normal (no TP congestion) Neck Neck: Yes supple and No lymphadenopathy Thyroid: Thyroid normal Resp Auscultation: clear to auscultation bilaterally, no rales and no wheezes Cardio Rate: regular rate Rhythm: regular rhythm Heart sounds: no murmurs GI Palpation (GI): Soft to palpation and nontender Auscultation: normal bowel sounds General: Yes no CVA tenderness Back/Spine/Pelvis Back: no CVA tenderness Thoracic/Lumbar Spine: lumbar spinal tenderness (minimal) Skin Rashes: no rashes Extrem General: Yes no clubbing, cyanosis or edema Results Reviewed Results Reviewed: Laboratory Tests 10/29/24 10/29/24 07:30 09:30 WBC 5.3 Hgb 13.3 L Hct 41.1 L Plt Count 191 Sodium 141 Potassium 5.0 Creatinine 0.92 Estimated GFR > 60 Fasting Glucose 94 Uric Acid 6.6 Calcium 9.6 AST 22 ALT 18 Triglycerides 96 Cholesterol 199 LDL Cholesterol, Calc 130 H HDL Cholesterol 50 Vitamin B12 1140 H TSH 1.74 Ur Specific [place] 1.020 Urine Protein Negative Urine Glucose (UA) Negative Urine Blood Negative Urine Nitrite Negative Ur Leukocyte Esterase Negative Lyme Screen IgG & IgM <0.90 Lyme Progressive Test TNP Coding Level of Care Code Est Pt Level 4 (46272) Complex EM visit Add On G2211 Diagnoses Pure hypercholesterolemia E78.00 Benign essential hypertension I10 Impaired fasting glucose R73.01 Cardiomyopathy, unspecified type I42.9 Cardiomyopathy type: unspecified Idiopathic gout, unspecified chronicity, unspecified site M10.00 Gout site: unspecified site Gout etiology: idiopathic Chronicity: unspecified Mild anemia D64.9 Degeneration of intervertebral disc of lumbar region with discogenic back pain M51.360 Disc-related pain type: discogenic back pain only Primary osteoarthritis of both hips M16.0 Osteoarthritis type: primary Laterality: bilateral Peripheral polyneuropathy G62.9 Smoker F17.200 Obesity (BMI 30-39.9) E66.9 Additional Codes PHQ-9 - 24217 - PHQ-9 Billing: Yes ([id number]) Assessment & Plan Assessment & Plan (1) Pure hypercholesterolemia: Code(s): E78.00 - Pure hypercholesterolemia, unspecified Category: Medical Plan: Results of his labs done last week reviewed and discussed with patient - have cautioned patient that his LDL cholesterol level has increased from previous Reinforced low cholesterol diet Patient continues to decline pharmacotherapy and prefers to continue with diet modification alone in controlling or keeping his cholesterol levels controlled Will recheck his labs and fasting lipids in 4 months for follow up (2) Benign essential hypertension: Code(s): I10 - Essential (primary) hypertension Category: Medical Plan: Reinforced low sodium diet - goal is systolic BP of 130 mm or less Continue Irbesartan 300 mg QD and Amlodipine 2.5 mg QD He is reminded to continue monitoring his blood pressure regularly (3) Impaired fasting glucose: Code(s): R73.01 - Impaired fasting glucose Category: Medical Plan: His FBS remained normal at 94 mg/dl on his labs done last week; HgbA1c was normal at 5.3% when previously checked Reinforced low calorie/low carb diet; exercise as tolerated (4) Cardiomyopathy: Code(s): I42.9 - Cardiomyopathy, unspecified Category: Medical Qualifiers: Cardiomyopathy type: unspecified Qualified Code(s): I42.9 - Cardiomyopathy, unspecified Plan: Echocardiogram done back in May 2022 revealed (+) [id number] LV systolic dysfunction with LVEF of 40-45% with grade 1 diastolic dysfunction; normal cardiac valvular Doppler, normal RV systolic pressure and no gross pericardial effusion Repeat echocardiogram done on 10/22/2022 revealed normal LV cavity size with mildly increased LV wall thickness. LV systolic function is low normal. 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 and should continue to improve or at least stabilize with alcohol cessation - he is encouraged on staying sober and to continue to avoid drinking any alcohol completely Follow up with cardiology as scheduled (5) Gout: Code(s): M10.9 - Gout, unspecified Category: Medical Qualifiers: Gout site: unspecified site Gout etiology: idiopathic Chronicity: unspecified Qualified Code(s): M10.00 - Idiopathic gout, unspecified site Plan: His serum uric acid level was normal at 6.6 on his recent labs; patient has not had any acute gout flares in a while now Reinforced low purine diet Continue Allopurinol 200 mg QD (6) Mild anemia: Code(s): D64.9 - Anemia, unspecified Category: Medical Plan: His H/H appears stable and has again improved slightly from previous; his RBC indices are again all normal Will continue to monitor his CBC regularly (7) Lumbar degenerative disc disease: Code(s): M51.36 - Other intervertebral disc degeneration, lumbar region Category: Medical Qualifiers: Disc-related pain type: discogenic back pain only Qualified Code(s): M51.360 - Other intervertebral disc degeneration, lumbar region with discogenic back pain only Plan: Reinforced activity and weight-lifting restrictions Patient states that Celecoxib helps with his back pain and that his low back pain has been manageable for a while now - he takes Rx only PRN (8) Osteoarthritis of hip: Comment: S/P right hip arthroplasty on 12/13/2015 S/P left hip arthroplasty on 06/26/2022 Code(s): M16.9 - Osteoarthritis of hip, unspecified Category: Medical Qualifiers: Osteoarthritis type: primary Laterality: bilateral Qualified Code(s): M16.0 - Bilateral primary osteoarthritis of hip Plan: S/P bilateral hip arthroplasty over the past 6 to 8 years Patient states that his surgeries went well, with significant improvement of his hip symptoms/pain and mobility post-surgery Continue Celecoxib 200 mg QD PRN Follow up with orthopedics as scheduled (9) Peripheral polyneuropathy: Code(s): G62.9 - Polyneuropathy, unspecified Category: Medical Plan: EMG and NCV done a couple of years ago showed (+) 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 with a superimposed right L4 radiculopathy; EMG shows an active denervation in the right L4 innervated muscle, with right L4 and L5 nerve root impingement seen on his recent lumbar spine MRI States that his symptoms have been tolerable/manageable lately and he does not require any additional intervention at this time (10) Smoker: Comment: cigar-some day Code(s): F17.200 - Nicotine dependence, unspecified, uncomplicated Category: Social Hx Plan: Patient is counseled again on complete smoking cessation (11) Obesity (BMI 30-39.9): Code(s): E66.9 - Obesity, unspecified Category: Medical Plan: Reinforced diet/exercise as tolerated/lose weight Plan Follow up in 4 months Orders: Orders Lipid Panel 4 Months E78.00 - Pure hypercholesterolemia, unspecified TSH reflex Free T4 4 Months E78.00 - Pure hypercholesterolemia, unspecified UA CC w/rflx Micro + Cult 4 Months R30.0 - Dysuria Vitamin B12 and Folate 4 Months E53.8 - Deficiency of other specified B group vitamins Vitamin D 25-OH Total 4 Months E55.9 - Vitamin D deficiency, unspecified Complete Blood Count Auto Diff 4 Months D64.9 - Anemia, unspecified Comprehensive [place]. Panel Fast 4 Months E78.00 - Pure hypercholesterolemia, unspecified Uric Acid 4 Months M10.9 - Gout, unspecified
--- OUTSIDE RECORDS SUMMARY | 2024-11-05 10:41 | XMS_ITS ---
Author Organization [facility] Address [address] [place] [address] Care Team Providers Care Crust Sorter Name Role Phone Mayo PEREZ, [place] Primary Care Provider Laura Pace Unavailable [phone] Allergies No Known Allergies REASON FOR VISIT [...] Status W/U Status Risk Notes Problem Spasm ([id number]) Extensor tendon tightness, contracture (M62.40) Active confirmed Improvement Vital Signs Height 6ft 1in in 05/26/2024 Weight 225 lbs 05/26/2024 BMI 29.68 kg/m2 05/26/2024 Blood pressure systolic 130 mm Hg 05/26/20 24 Blood pressure diastolic 70 mm Hg 024 Encounters Encounter Location Date Provider Diagnosis [facility] [place] [address] [place] [address] 05/26/2024 Laura Chan Hammer toe of right foot M20.41 Assessments Encounter Date Diagnosis (ICD Code) Assessment Notes Treatment Notes Treatment Clinical Notes Section Notes 05/26/2024 Hammer toe of right foot (ICD-10 - M20.41) Improvement Plan Of Treatment Next Appt Details Follow Up: prn, Reason: Progress Notes * George BORGES RDOB:1944 (78 yo M)Acc No.[id number]:05/26/2024 Patient:?George Borges R Provider:?Laura Chan DPM :1945???Age:78 Y???Sex:Male Carroll e:05/26/2024 Address:[address] [place], [place] [id number] Pcp:Luis Huber MD Subjective: * Chief Complaints: [...] Chan DPM Date:?1 Generated for Verónica angel/Virgil/Michelle on:?11/05/2024 10:41 AM EDT History and Physical Notes * [...]
--- OUTSIDE RECORDS SUMMARY | 2024-11-05 10:41 | XMS_ITS ---
Author Organization [facility] Address [address] [place] [address] Care Team Providers Care Direct Entry Midwife Name Role Phone Mayo PEREZ, Luis Primary Care Provider UnaLaura [facility] [phone] Encounters Encounter Location Date Provider Diagnosis [address] [address] 05/22/2024 Laura Chan Plan Of Treatment No Information Progress Notes * George BORGES RDOB:1944 (79 yo M)Acc No.[id number]:05/22/2024 Patient:?George BORGES Provider:?Laura Chan DPM :1945???Age:78 Y???Sex:Male Carroll e:05/22/2024 Address:[address] [place], [place] [address] Pcp:Luis Huber MD Subjective: * Chief Complaints: * ??? * Medical History:? Objective: * Vitals:? Assessment: Plan: * Treatment: * Images: * The named appointment provid er may or may not be the originator of this progress note, and it is not deemed complete until electronically signed by the appointment provider. Sign off status: Pending * Provider:?Laura Chan DPM Date:?1 Generated for Pinedai stanley/Fajocelyng/eTransmitting on:?11/05/2024 10:41 AM EDT
--- OUTSIDE RECORDS SUMMARY | 2024-11-05 10:41 | XMS_ITS ---
[facility] Address [address] [place] [address] Care Team Providers Care Medical Nurse Name Role Phone Mayo PEREZ, Circle Primary Care Provider Laura Pace Unavailable [phone] Allergies No Known Allergies REASON FOR VISIT [...] Problem Acquired hammer toe of right foot (031316758830 9105) Hammer toe of right foot (M20.41) Active confirmed Improvement Problem Acquired hammer toe of left foot (390383758706 9103) Hammer toe of left foot (M20.42) Active confirmed Improvement Vital Signs Height 6ft 1in in 05/12/2024 Weight 255 lbs 05/12/2024 BMI 33.64 kg/m2 05/12/2024 Procedures Procedure Date Ordered Date Performed Result Body Sit e 37643 - Tenotomy, open flexor 05/12/2024 N/A Encounters Encounter Location Date Provider Diagnosis [facility] [address] [place] [address] 05/12/2024 Laura Chan Hammer toe of right [...] Detail Notes Podiatry Procedure Tenotomy - Flexor (02073) LOC ATION : T7 INDICATIONS : a [...] * George BORGES RDOB:1944 (78 yo M)Acc No.[id number]:05/12/2024 Patient:?George Borges Provider:?Laura Chan DPM :1945???Age:78 Y???Sex:Male Carroll e:05/12/2024 Address:[address] [place], [place] [id number] Pcp:Luis Huber MD Subjective: * Chief Complaints: [...] * Treatment: * Procedures:?Podiatry Procedure:?Tenotomy - Flexor (28439)?LOCATION : T7 INDICATIONS : a painful non-rigid [...] dry until the next visit.? * Procedure Codes:?00734 INCIS ION OF FOOT TENDON(S), Modifiers: T7 [...]
--- OUTSIDE RECORDS SUMMARY | 2024-11-05 10:41 | XMS_ITS | Patient Health Record ---
Author Organization [facility] Address [address] [place] [address] Care Team Providers Care Tire Mounter Name Role Phone Mayo PEREZ [place] Primary Care Provider Laura Pace Unavailable [phone] David Martin Unavailable [phone] Allergies No Known Allergies Reason For Referral No Information Medications Medication SIG (Take, Route, Frequency, Duration) [...] Problem Status W/U Status Risk Notes Problem Localized, primary osteoarthritis of the ankle and/or foot (299006064) Primary osteoarthritis , right ankle and foot (M19.071) Active confirmed Problem Acquired hammer toe of right foot (2526716644015893 ) Other hammer toe(s) (acquired), right foot (M20.41) Active confirmed Problem Acquired hammer toe of right foot (2430646112001069 ) Hammer toe of right foot (M20.41) Active confirmed Improvement Problem Acquired hammer toe of left foot (6753701918032342 ) Hammer toe of left foot (M20.42) Active confirmed Improvement Problem Spasm (66418369) Extensor tendon tightness, contracture (M62.40) Active confirmed Improvement Vital Signs Blood pressure diastolic 70 mm Hg 05/26/2024 Height 6ft 1in in 05/26/2024 Blood pressure systolic 130 mm Hg 05/26/2024 Weight 225 lbs 05/26/2024 BMI 29.68 kg/m2 05/26/2024 Procedures Procedure Date Ordered Date Performed Result Body Sit e 67684 - Tenotomy, open flexor 05/12/2024 N/A Encounters Encounter Location Date Provider Diagnosis [address] [address] 02/26/2024 David Martin Tinea unguium B35.1 ; Pain in right toe(s) M79.674 ; Pain in left toe(s) M79.675 ; Other hammer toe(s) (acquired), right foot M20.41 ; Other hammer toe(s) (acquired), left foot M20.42 and Gout, unspecified M10.[address] [address] 05/12/2024 Laura Chan Hammer toe of right foot M20.[address] [address] 05/26/2024 Laura Chan Hammer toe of right foot M20.[address] [address] 04/02/2024 David Martin [address] [address] 04/27/2024 David Martin Assessments Encounter Date Diagnosis (ICD Code) Assessment Notes Treatment Notes Treatment Clinical Notes Section Notes 02/26/2024 Tinea unguium (ICD-10 - B35.1) 02/26/2024 Pain in right toe(s) (ICD-10 - M79.674) 05/12/2024 Hammer toe of right foot (ICD-10 - M20.41) 05/26/2024 Hammer toe of right foot (ICD-10 - M20.41) Improvement 02/26/2024 Pain in left toe(s) (ICD-10 - M79.675) 02/26/2024 Other hammer toe(s) (acquired), right foot (ICD-10 - M20.41) 02/26/2024 Other hammer toe(s) (acquired), left foot (ICD-10 - M20.42) 02/26/2024 Gout, unspecified (ICD-10 - M10.9) Plan Of Treatment Pending Test Test Name Order Date X ray : Foot, right 3V 02/26/2024 21742 - Tenotomy, open flexor 05/12/2024 Insurance Providers Payer Name Payer Address Payer Phone Subscriber Number Group Number Insured Name Patient Relationship to Insured Coverage Start Date Coverage End Date [employer] 65 Medicare Preferred [address] [place] [address] [id number] George Bales Self - patient is the insured Medical (General) History Medical History History ICD Code Arthritis Back,Hip,and Knee pain Gout High blood pressure Chicken pox Bone implants/screws Transfusions Heart disease Surgical History Surgery Date(Month/Year) right hip replacement 11/2015 left hip replacement 2021
== END 2024-11-05 10:19 | disposition home or self-care (01) ==
LOC: HO.HMCH 09:36
PROVIDERS: PCP Internal Medicine; Visit Provider Internal Medicine
DX: E78.00 Pure hypercholesterolemia, unspecified (principal); I42.9 Cardiomyopathy, unspecified; E66.9 Obesity, unspecified; Z68.33 Body mass index [BMI] 33.0-33.9, adult; I10 Essential (primary) hypertension; R73.01 Impaired fasting glucose; M10.00 Idiopathic gout, unspecified site; D64.9 Anemia, unspecified; M51.360 Other intervertebral disc degeneration, lumbar region with discogenic back pain only; M16.0 Bilateral primary osteoarthritis of hip; G62.9 Polyneuropathy, unspecified; F17.200 Nicotine dependence, unspecified, uncomplicated

== ENCOUNTER → 2024-11-05 09:36 | Outpatient (BNVA) | payer MEDICARE, SELFPAY | PROVIDERS: PCP Internal Medicine; Visit Provider Internal Medicine | DX: E78.00 Pure hypercholesterolemia, unspecified (principal); I10 Essential (primary) hypertension; R73.01 Impaired fasting glucose; I42.9 Cardiomyopathy, unspecified; M10.00 Idiopathic gout, unspecified site; D64.9 Anemia, unspecified; M51.360 Other intervertebral disc degeneration, lumbar region with discogenic back pain only; M16.0 Bilateral primary osteoarthritis of hip; G62.9 Polyneuropathy, unspecified; E66.9 Obesity, unspecified; F17.200 Nicotine dependence, unspecified, uncomplicated; Z71.6 Tobacco abuse counseling | CPT/HCPCS: 96127; 99212 ==

== ENCOUNTER 2025-03-16 07:00 | Outpatient (REF) | payer MEDICARE, SELFPAY ==
[2025-03-16 10:06] LABS: MANUAL DIFF FLAG NO
[2025-03-16 10:18] LABS: Hematocrit 38.6 % (42.0-52.0); Hemoglobin 12.4 g/dl (14.0-18.0); Imm Gran Abs Auto 0.02 X10*3/uL (0.00-0.03); Imm Gran Pct Auto 0.4 % (0.0-0.4); Lymphocytes Absolute Auto 2.0 X10*3/uL (1.2-4.9); Mean Corpuscular HGB Conc 32.1 g/dl (31.0-36.0); Mean Corpuscular Hemoglobin 30.2 pg (27.0-33.0); Mean Corpuscular Volume 94.1 fL (80.0-98.0); NRBC Abs Auto 0.000 X10*3/uL (0.0-0.012); NRBC Pct Auto 0.0 /100WBC (0.0-0.2); Platelet Count 183 X10*3/uL (160-400); Red Blood Count 4.10 X10*6/uL (4.60-5.80); White Blood Count 5.1 X10*3/uL (4.8-10.8)
[2025-03-16 10:56] LABS: Folate 7.6 ng/mL (> or = 4.0); Vitamin B12 544 pg/mL (200-900)
[2025-03-16 11:04] LABS: Alanine Aminotransferase 18 U/L (0-40); Albumin Level 4.2 g/dL (3.5-5.0); Alkaline Phosphatase 71 U/L (39-117); Anion Gap 12 (12-20); Aspartate Amino Transferase 24 U/L (5-37); Blood Urea Nitrogen 25 mg/dL (9-16); Calcium 9.2 mg/dL (8.4-10.2); Carbon Dioxide 25 mmol/L (22-29); Chloride 110 mmol/L (96-108); Cholesterol 177 mg/dL (<200); Estimated Glomerular Filt Rate > 60; HDL Cholesterol 47 mg/dL (>40); Potassium 4.9 mmol/L (3.3-5.1); Sodium 142 mmol/L (135-145); Total Protein 6.5 g/dL (6.5-8.0); Triglycerides 99 mg/dL (<150); Uric Acid 6.1 mg/dL (3.4-7.0)
[2025-03-16 11:19] LABS: Appearance Urine Clear; Glucose Urine UA Negative (Negative); PH 6.0 (5.0-9.0); Specific Gravity - Urine 1.015 (1.005-1.025)
== END 2025-03-16 07:01 | disposition home or self-care (01) ==
LOC: HO.HMGCLDS 07:00
PROVIDERS: PCP Internal Medicine; Visit Provider Internal Medicine
DX: E53.8 Deficiency of other specified B group vitamins (principal); R30.0 Dysuria; E55.9 Vitamin D deficiency, unspecified; E78.00 Pure hypercholesterolemia, unspecified; M10.9 Gout, unspecified; D64.9 Anemia, unspecified
CPT/HCPCS: 36415; 80053; 80061; 81003; 82306; 82607; 82746; 84443; 84550; 85025

== ENCOUNTER 2025-03-24 09:31 | Outpatient (AMB) | payer MEDICARE, SELFPAY ==
--- OUTSIDE RECORDS SUMMARY | 2024-05-22 05:15 | XMS_ITS ---
Author Organization [facility] Address [address] [place] [phone] Care Team Providers Care Harness Rigger Name Role Phone Mayo PEREZ, Luis Primary Care Provider UnaLaura Koo [phone] Encounters Encounter Location Date Provider Diagnosis [address] [address] 05/22/2024 Laura Chan Plan Of Treatment Next Appt Details Provider Name:Laura rosales, 05/12/2025 03:15:00 PM, [address] [place] [address], [phone], Progress Notes * George BORGES RDOB:1944 (79 yo M)Acc No.[id number]:05/22/2024 Patient: George RIVERA Provider: Ayesha Chan DPM :1945 A ge:78 Y S ex:Male Date:05/22/2024 Address:[address] [place] [address] Pcp:Luis Huber MD Subjective: * Chief Complaints: [...] Date: 1 Generated for Verónica angel/Virgil/Michelle on: 0 03/24/2025 10:09 AM EDT
[2025-03-24 09:35] VITALS: BP 136/82; PULSE 80; TEMP 36.3; O2SAT 96; BMI 32.7
--- NOTE | 2025-03-24 09:35 | A.OFFPC_ITS ---
Vital Signs 03/24/25 09:35 Height 6 ft 1 in Weight 248 lb 4 oz BMI 32.7 BP 136/82 Blood Pressure Location Lt brachial Position Sitting Pulse 80 Pulse Source Pulse Oximeter Temp 97.3 F Temp Source Temporal Artery Scan Pulse Oximetry (%) 96 Oxygen Delivery Method Room Air Intake Visit Reasons: HTN, hyperlipidemia, IFG, gout, neuropathy Allergies No Known Allergies Allergy (Verified 03/24/25 10:00) Medication List - Last Reconciled 03/24/25 by Luis Huber MD acetaminophen 650 mg (2 x 325 mg) PO Q6H PRN 30 days allopurinol 200 mg (2 x 100 mg) PO DAILY amlodipine 2.5 mg PO DAILY celecoxib 200 mg PO DAILY PRN 90 days cholecalciferol (vitamin D3) 50 mcg PO DAILY 90 days cyanocobalamin (vitamin B-12) 1,000 mcg sublingual DAILY irbesartan 300 mg PO DAILY metoprolol succinate ER 25 mg PO DAILY Tobacco use date assessed: 03/24/25 Fall risk assessment: No Falls in past year Last assessed Fall Risk: 03/24/25 Dental Screening Dental Screen Date: 03/24/25 Did you have a dental visit in the last 12 months?: Yes Did you have a dental problem in the last 6 months where you did not have access to dental care?: No Was dental information given to patient?: Patient has dentist HPI HTN, hyperlipidemia, IFG, gout, neuropathy HPI Details Patient comes in today for his follow up visit for his HTN, hyperlipidemia, IFG, gout, OA and lumbar DDD He appears to have lost some weight since his last visit States that he feels okay He denies any headaches or dizziness Denies any chest pains, no SOB No nausea/vomiting, no abdominal pain No change in bowel habits noted He had his follow up labs done last week - to discuss his results [facility] Medical History History of blood transfusion Personal history of COVID-19 Osteoarthritis Obesity (BMI 30-39.9) Smoker Peripheral polyneuropathy Lumbar degenerative disc disease Mild anemia Gout Osteoarthritis of hip Impaired fasting glucose Benign essential hypertension Pure hypercholesterolemia Primary osteoarthritis of left hip Surgical History History of left hip replacement S/P total left hip arthroplasty (~06/26/22) Hx of colonoscopy History of surgery History of total right hip arthroplasty Family History Father CVD (cardiovascular disease) Mother Stroke Cancer Brother Healthy adult Sister Healthy adult Social History Household Members: Spouse Housing: House Are you a primary care transition manager to a significant other at home: No Do you presently have visiting nurse or other home services: No 75 years or older and lives alone: No Alcohol intake: current Alcohol intake frequency: a few times a month Patient Tobacco Use Status: Current someday Tobacco user Tobacco use type: Cigar e-Cigarette/Vaping Use: Never Used Second Hand Smoke Exposure: No Advance Directives Date on File: 12/14/15 service: No Current occupational status: retired Cognitive needs: No Hearing needs: No Vision needs: No Questionnaire PHQ-9 Over the last 2 weeks, how often have you been bothered by any of the following problems? 1. Little interest or pleasure in doing things: not at all 2. Feeling down, depressed, or hopeless: not at all 3. Trouble falling or staying asleep, or sleeping too much: not at all 4. Feeling tired or having little energy: not at all 5. Poor appetite or overeating: not at all 6. Feeling bad about yourself - or that you are a failure or have let yourself or your family down: not at all 7. Trouble concentrating on things, such as reading the newspaper or watching television: not at all 8. Moving or speaking so slowly that other people could have noticed. Or the opposite - being so fidgety or restless that you have been moving around a lot more than usual: not at all 9. Thoughts that you would be better off or of hurting yourself in some way: not at all Total score: 0 Depression Screening Interpretation: Negative Depression Screening Done: Yes 07228 - PHQ-9 Billing: Yes Source: Developed by Drs. Miki Santos, Karen Chavira, Rene Rojas and colleagues, with an educational william from [employer]. Thrive Questionnaire Date Thrive assessed: 03/24/25 I am a: Patient What is your living situation today?: I have a steady place to live Within the past 12 months, did the food you bought not last and you didn't have the money to get more?: I choose not to answer this question Within the past 12 months, did you worry whether your food would run out before you got money to buy more?: Never true Do you have trouble paying for medicines?: I choose not to answer this question Do you have trouble getting transportation to medical appointments?: I choose not to answer this question Do you have trouble paying your heating and electricity bill?: No Do you have trouble taking care of your child, family member or friend?: I choose not to answer this question Do you have trouble with day-to-day activities such as bathing, preparing meals, shopping, managing finances, etc.?: No Are you currently unemployed and looking for a job?: I choose not to answer this question Are you interested in more education?: No Please select the resources that you would like help with: None Currently or been in a relationship where the following occur: No concerns reported THRIVE Score: 0 AUDIT C Alcohol Use Questionnaire (AUDIT-C) 1. How often do you have a drink containing alcohol?: 2-3 times a week 2. How many drinks containing alcohol do you have on a typical day when you are drinking?: 1 or 2 3. How often do you have six or more drinks on one occasion?: Never Total Score: 3 Score Reviewed/Action Taken: Yes EWELINA-7 AMB Questionnaire EWELINA-7 Date EWELINA - 7 assessed: 11/05/24 Feeling nervous, anxious, or on edge: 1 = Several days Not being able to stop or control worryin = Several days Worrying too much about different things: 1 = Several days Trouble relaxin = Several days Being so restless that it is hard to sit still: 0 = Not at all Becoming easily annoyed or irritable: 0 = Not at all Feeling afraid as if something awful might happen: 0 = Not at all Total EWELINA-7 score (0-4 normal; 5-9 mild; 10-14 moderate; 15-21 severe): 4 Source: Developed by Drs. Miki Santos, Karen Chavira, Rene Rojas and colleagues, with an educational william from [employer]. Review of Systems Const Denies chills, Denies fatigue, Denies fever(s) and Denies headache(s) ENT Denies dysphagia, Denies dizziness, Denies otalgia, Denies headache(s), Denies neck pain, Denies odynophagia and Denies sore throat Card Denies chest pain, Denies palpitations and Denies dyspnea Resp Denies chest congestion, Denies cough and Denies dyspnea GI Denies abdominal pain, Denies constipation, Denies dysphagia, Denies heartburn, Denies diarrhea, Denies nausea, Denies odynophagia and Denies vomiting Denies difficulty urinating, Denies dysuria, Denies nocturia and Denies urinary frequency Musc Reports back pain (mild), Reports arthralgias (left hip, on and off ) and Denies neck pain Skin/Breast Denies rash Neuro Denies dizziness and Denies headache(s) Endo Denies fatigue and Denies palpitations Physical exam (Primary Care) Vital Signs: Last Vital Signs Temp 97.3 F 03/24/25 09:35 Pulse 80 03/24/25 09:35 BP 136/82 03/24/25 09:35 Pulse Ox 96 03/24/25 09:35 Oxygen Delivery Method Room Air 03/24/25 09:35 BMI result Body Mass Index 32.7 Tobacco/Smoking Status: Tobacco use Status Tobacco use date assessed 03/24/25 03/24/25 09:38 Patient Tobacco Use Status Current someday Tobacco 03/24/25 09:38 Tobacco use type Cigar 03/24/25 09:38 e-Cigarette/Vaping Use Never Used 03/24/25 09:38 PHQ-9: PHQ-9 Score PHQ-9: Total score 0 03/24/25 09:38 Depression Screening Interpretation: Negative Thrive Assessment: Date of Thrive Assessment Date Thrive assessed 03/17/25 03/24/25 09:38 Currently or been in a relationship where the following occur: No concerns reported Const General: no acute distress and alert HENMT Ears: TM's normal bilaterally and EAC's normal Throat: Yes posterior oropharynx normal and Yes tonsils normal (no TP congestion) Neck Neck: Yes supple and No lymphadenopathy Thyroid: Thyroid normal Resp Auscultation: clear to auscultation bilaterally, no rales and no wheezes Cardio Rate: regular rate Rhythm: regular rhythm Heart sounds: no murmurs GI Palpation (GI): Soft to palpation and nontender Auscultation: normal bowel sounds General: Yes no CVA tenderness Back/Spine/Pelvis Back: no CVA tenderness Thoracic/Lumbar Spine: lumbar spinal tenderness (minimal) Skin Rashes: no rashes Extrem General: Yes no clubbing, cyanosis or edema Results Reviewed Results Reviewed: Laboratory Tests 03/16/25 03/16/25 07:07 07:10 WBC 5.1 Hgb 12.4 L Hct 38.6 L Plt Count 183 Sodium 142 Potassium 4.9 Creatinine 1.10 Estimated GFR > 60 Fasting Glucose 97 Uric Acid 6.1 Calcium 9.2 AST 24 ALT 18 Triglycerides 99 Cholesterol 177 LDL Cholesterol, Calc 111 H HDL Cholesterol 47 Vitamin B12 544 25-OH Vitamin D Total 63.9 TSH 2.68 Ur Specific [place] 1.015 Urine Protein Negative Urine Glucose (UA) Negative Urine Blood Negative Urine Nitrite Negative Ur Leukocyte Esterase Negative Coding Level of Care Code Est Pt Level 4 (71819) Diagnoses Pure hypercholesterolemia E78.00 Benign essential hypertension I10 Impaired fasting glucose R73.01 Cardiomyopathy, unspecified type I42.9 Cardiomyopathy type: unspecified Idiopathic gout, unspecified chronicity, unspecified site M10.00 Gout site: unspecified site Gout etiology: idiopathic Chronicity: unspecified Mild anemia D64.9 Degeneration of intervertebral disc of lumbar region with discogenic back pain M51.360 Disc-related pain type: discogenic back pain only Primary osteoarthritis of both hips M16.0 Osteoarthritis type: primary Laterality: bilateral Peripheral polyneuropathy G62.9 Smoker F17.200 Obesity (BMI 30-39.9) E66.9 Additional Codes PHQ-9 - 03877 - PHQ-9 Billing: Yes ([id number]) Assessment & Plan Assessment & Plan (1) Pure hypercholesterolemia: Code(s): E78.00 - Pure hypercholesterolemia, unspecified Category: Medical Plan: Results of his labs done last week reviewed and discussed with patient - his cholesterol levels have improved slightly from previous Reinforced low cholesterol diet Patient continues to decline pharmacotherapy and prefers to continue with diet modification alone in controlling his cholesterol levels Will recheck his labs and fasting lipids in 4 months for follow up (2) Benign essential hypertension: Code(s): I10 - Essential (primary) hypertension Category: Medical Plan: Reinforced low sodium diet - goal is systolic BP of 130 mm or less Continue Irbesartan 300 mg QD and Amlodipine 2.5 mg QD Patient is reminded to continue monitoring his blood pressure regularly (3) Impaired fasting glucose: Code(s): R73.01 - Impaired fasting glucose Category: Medical Plan: His FBS remained normal at 97 mg/dl on his labs done last week; HgbA1c was normal at 5.3% when previously checked Reinforced low calorie/low carb diet; exercise as tolerated (4) Cardiomyopathy: Code(s): I42.9 - Cardiomyopathy, unspecified Category: Medical Qualifiers: Cardiomyopathy type: unspecified Qualified Code(s): I42.9 - Cardiomyopathy, unspecified Plan: Echocardiogram done back in May 2022 revealed (+) [id number] LV systolic dysfunction with LVEF of 40-45% with grade 1 diastolic dysfunction; normal cardiac valvular Doppler, normal RV systolic pressure and no gross pericardial effusion Repeat echocardiogram done on 10/22/2022 revealed normal LV cavity size with mildly increased LV wall thickness. LV systolic function is low normal. 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 and should continue to improve or at least stabilize with alcohol cessation - he is encouraged on staying sober and to continue to avoid drinking any alcohol completely Follow up with cardiology as scheduled (5) Gout: Code(s): M10.9 - Gout, unspecified Category: Medical Qualifiers: Gout site: unspecified site Gout etiology: idiopathic Chronicity: unspecified Qualified Code(s): M10.00 - Idiopathic gout, unspecified site Plan: His serum uric acid level was again normal at 6.1 on his recent labs Patient states that he has not had any acute gout flares in a while now Reinforced low purine diet Continue Allopurinol 200 mg QD (6) Mild anemia: Code(s): D64.9 - Anemia, unspecified Category: Medical Plan: His H/H appears stable and has again improved slightly from previous; his RBC indices are again all normal Will continue to monitor his CBC regularly (7) Lumbar degenerative disc disease: Code(s): M51.36 - Other intervertebral disc degeneration, lumbar region Category: Medical Qualifiers: Disc-related pain type: discogenic back pain only Qualified Code(s): M51.360 - Other intervertebral disc degeneration, lumbar region with discogenic back pain only Plan: Reinforced activity and weight-lifting restrictions Patient states that Celecoxib helps with his back pain and that his low back pain has been manageable for a while now - he takes Rx only PRN (8) Osteoarthritis of hip: Comment: S/P right hip arthroplasty on 12/13/2015 S/P left hip arthroplasty on 06/26/2022 Code(s): M16.9 - Osteoarthritis of hip, unspecified Category: Medical Qualifiers: Osteoarthritis type: primary Laterality: bilateral Qualified Code(s): M16.0 - Bilateral primary osteoarthritis of hip Plan: S/P bilateral hip arthroplasty over the past 6 to 8 years Patient states that his surgeries went well, with significant improvement of his hip symptoms/pain and mobility post-surgery Continue Celecoxib 200 mg QD PRN Follow up with orthopedics as scheduled (9) Peripheral polyneuropathy: Code(s): G62.9 - Polyneuropathy, unspecified Category: Medical Plan: EMG and NCV done a couple of years ago showed (+) 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 with a superimposed right L4 radiculopathy; EMG shows an active denervation in the right L4 innervated muscle, with right L4 and L5 nerve root impingement seen on his recent lumbar spine MRI States that his symptoms have been tolerable/manageable lately and he does not require any additional intervention at this time (10) Smoker: Comment: cigar-some day Code(s): F17.200 - Nicotine dependence, unspecified, uncomplicated Category: Social Hx Plan: Patient is counseled again on complete smoking cessation (11) Obesity (BMI 30-39.9): Code(s): E66.9 - Obesity, unspecified Category: Medical Plan: Reinforced diet/exercise as tolerated/lose weight Plan Follow up in 4 months Orders: Orders Complete Blood Count Auto Diff 4 Months D64.9 - Anemia, unspecified Uric Acid 4 Months M10.9 - Gout, unspecified Comprehensive [place]. Panel Fast 4 Months E78.00 - Pure hypercholesterolemia, unspecified Lipid Panel 4 Months E78.00 - Pure hypercholesterolemia, unspecified Hemoglobin A1c 4 Months R73.01 - Impaired fasting glucose UA CC w/rflx Micro + Cult 4 Months R30.0 - Dysuria
--- OUTSIDE RECORDS SUMMARY | 2025-03-24 10:09 | XMS_ITS | Patient Health Record ---
[facility] Address [address] [place] [address] Care Team Providers Care Electrocardiograph Technician Name Role Phone Mayo PEREZ [place] Primary Care Provider Laura Pace Unavailable [phone] David Martin Unavailable [phone] Allergies No Known Allergies Reason For Referral No Information Medications Medication SIG (Take, Route, Frequency, Duration) Notes Start Date End Date Status Irbesartan 300 MG 1 tablet Orally Once a day; Duration: 30 day(s) Active amLODIPine Besylate 2.5 MG 1 tablet Oral ly Once a day; Duration: 30 day(s) Active Allopurinol 200 as directed [...] primary osteoarthritis of the ankle and/or foot (989109882) Primary osteoarthritis , right ankle and foot (M19.071) Active confirmed Problem Acquired hammer toe of right foot (2698115421387581 ) Other hammer toe(s) (acquired), right foot (M20.41) Active confirmed Problem Acquired hammer toe of right foot (1621109499982645 ) Hammer toe of right foot (M20.41) Active confirmed Improvement Problem Acquired hammer toe of left foot (9915377303422336 ) Hammer toe of left foot (M20.42) Active confirmed Improvement Problem Spasm (43977143) Extensor tendon tightness, contracture (M62.40) Active confirmed Improvement Vital Signs Blood pressure diastolic 70 mm Hg 05/26/2024 Height 6ft 1in in 05/26/2024 Blood pressure systolic 130 mm Hg 05/26/2024 Weight 225 lbs 05/26/2024 BMI 29.68 kg/m2 05/26/2024 Procedures Procedure Date Ordered Date Performed Result Body Sit e 59342 - Tenotomy, open flexor 05/12/2024 N/A Encounters Encounter Location Date Provider Diagnosis [address] [address] 05/12/2024 Laura Chan Hammer toe of right foot M20.[address] [address] 05/26/2024 Laura Chan Hammer toe of right foot M20.[address] [address] 04/02/[address] [address] 04/27/2024 David [place] Assessments Encounter Date Diagnosis (ICD Code) Assessment Notes Treatment Notes Treatment Clinical Notes Section Notes 05/12/2024 Hammer toe of right foot (ICD-10 - M20.41) 05/26/2024 Hammer toe of right foot (ICD-10 - M20.41) Improvement Plan Of Treatment Pending Test Test Name Order Date X ray : Foot, right 3V 02/26/2024 74453 - Tenotomy, open flexor 05/12/2024 Next Appt Details Provider Name:Laura rosales, 05/12/2025 03:15:00 PM, [address] [place] [address], [phone], Insurance Providers Payer Name Payer Address Payer Phone Subscriber Number Group Number Insured Name Patient Relationship to Insured Coverage Start Date Coverage End Date [facility] 65 Medicare Preferred [address] [place] [address] [id number] George Bales Self - patient is the insured Medical (General) History Medical History History ICD Code Arthritis Back,Hip,and Knee pain Gout High blood pressure Chicken pox Bone implants/screws Transfusions Heart disease Surgical History Surgery Date(Month/Year) right hip replacement 11/2015 left hip replacement 2021
== END 2025-03-24 10:13 | disposition home or self-care (01) ==
LOC: HO.HMCH 09:32
PROVIDERS: PCP Internal Medicine; Visit Provider Internal Medicine
DX: E78.00 Pure hypercholesterolemia, unspecified (principal); I42.9 Cardiomyopathy, unspecified; Z68.32 Body mass index [BMI] 32.0-32.9, adult; E66.9 Obesity, unspecified; I10 Essential (primary) hypertension; R73.01 Impaired fasting glucose; M10.00 Idiopathic gout, unspecified site; D64.9 Anemia, unspecified; M51.360 Other intervertebral disc degeneration, lumbar region with discogenic back pain only; M16.0 Bilateral primary osteoarthritis of hip; G62.9 Polyneuropathy, unspecified; F17.200 Nicotine dependence, unspecified, uncomplicated

== ENCOUNTER → 2025-03-24 09:31 | Outpatient (BNVA) | payer MEDICARE, SELFPAY | PROVIDERS: PCP Internal Medicine; Visit Provider Internal Medicine | DX: I10 Essential (primary) hypertension (principal); E78.5 Hyperlipidemia, unspecified; G62.9 Polyneuropathy, unspecified; E78.00 Pure hypercholesterolemia, unspecified; R73.01 Impaired fasting glucose; I42.9 Cardiomyopathy, unspecified; M10.00 Idiopathic gout, unspecified site; D64.9 Anemia, unspecified; M51.360 Other intervertebral disc degeneration, lumbar region with discogenic back pain only; M16.0 Bilateral primary osteoarthritis of hip; F17.210 Nicotine dependence, cigarettes, uncomplicated; E66.9 Obesity, unspecified; Z68.32 Body mass index [BMI] 32.0-32.9, adult | CPT/HCPCS: 96127; 99212 ==

== ENCOUNTER 2025-04-28 08:53 | Outpatient (AMB) | payer MEDICARE, SELFPAY ==
--- OUTSIDE RECORDS SUMMARY | 2024-05-06 06:00 | XMS_ITS ---
Author Organization [facility] Address [address] [place] [id number] Care Team Providers Care Imaging Tech Name Role Phone Mayo PEREZ, Luis Primary Care Provider Laura Pace Unavailable [phone] David Martin [phone] Encounters Encounter Location Date Provider Diagnosis [address] [address] 05/06/2024 David Martin Plan Of Treatment Next Appt Details Provider Name:Laura Arthur rosales, 05/12/2025 03:15:00 PM, [address] [place] [address], [phone], Progress Notes * George BORGES RDOB:1944 (79 yo M)Acc No.[id number]:05/06/2024 Patient: George RIVERA Provider: Lela Martin DPM :1945 A ge:78 Y S ex:Male Date:05/06/2024 Address:[address] [place], [place] [id number] Pcp:Luis Huber MD Subjective: * Chief Complaints: * * Medical History: Objective: * Vitals: Assessment: Plan: * Treatment: * Images: * The named appointment provid er may or may not be the originator of this progress note, and it is not deemed complete until electronically signed by the appointment provider. Sign off status: Pending * Provider: Lela Martin DPM Date: Generated for Verónica Rodriguez on: 09:32 AM EDT
--- OUTSIDE RECORDS SUMMARY | 2024-05-22 05:15 | XMS_ITS ---
Author Organization [facility] Address [address] [place] [phone] Care Team Providers Care Juvenile Justice Specialist Name Role Phone Mayo PEREZ, Luis Primary Care Provider UnaLaura Koo [phone] Encounters Encounter Location Date Provider Diagnosis [address] [address] 05/22/2024 Laura Chan Plan Of Treatment Next Appt Details Provider Name:Laura rosales, 05/12/2025 03:15:00 PM, [address] [place] [address], [phone], Progress Notes * George BORGES RDOB:1944 (79 yo M)Acc No.[id number]:05/22/2024 Patient: George RIVERA Provider: Ayesha Chan DPM :1945 A ge:78 Y S ex:Male Date:05/22/2024 Address:[address] [place] [address] Pcp:Luis Huber MD Subjective: * Chief Complaints: * * Medical History: Objective: * Vitals: Assessment: Plan: * Treatment: * Images: * The named appointment provid er may or may not be the originator of this progress note, and it is not deemed complete until electronically signed by the appointment provider. Sign off status: Pending * Provider: Ayesha Chan DPM Date: 1 Generated for Verónica angel/Virgil/Michelle on: 09:33 AM EDT
[2025-04-28 09:13] VITALS: BP 124/62; PULSE 65; BMI 32.9
--- NOTE | 2025-04-28 09:13 | MHC.OFFVIS ---
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 Accompanied by: Self / Same As Patient Allergies No Known Allergies Allergy (Verified 03/24/25 10:00) Medication List - Last Reconciled 04/28/25 by Shayne Hunter MD acetaminophen 650 mg (2 x 325 mg) PO Q6H PRN 30 days allopurinol 200 mg (2 x 100 mg) PO DAILY amlodipine 2.5 mg PO DAILY celecoxib 200 mg PO DAILY PRN 90 days cholecalciferol (vitamin D3) 50 mcg PO DAILY 90 days cyanocobalamin (vitamin B-12) 1,000 mcg sublingual DAILY irbesartan 300 mg PO DAILY magnesium oxide 400 mg PO BEDTIME 90 days metoprolol succinate ER 25 mg PO DAILY HPI Comments Details: 79-year-old gentleman who is here for follow-up. He was seen for perioperative cardiovascular risk assessment. He underwent echocardiography which showed mildly reduced ejection fraction of 40 45%. He has background history of hypertension. He also was drinking alcohol in the past. He underwent stress test where he was able to exercise for 5 metabolic equivalents and he was advised to proceed with hip surgery which he underwent successful in the past. He is doing well since then. He is denying any significant chest discomfort shortness of breath. Since surgery has not been drinking alcohol. He had repeat echocardiography which showed recovery in EF to low normal 50-55%. He has no clinical heart failure. Is taking medications but he is missing carvedilol in the afternoon. He is asking whether he can be changed to once a day formulation. 03/20/2023: He returns for follow-up. He is denying any chest discomfort shortness of breath. No symptoms/signs of heart failure. He drinks some beers here and there but not drinking regularly. Blood pressure control is good. 08/14/23: He returns for follow-up. Blood pressure is well controlled. Denying any chest discomfort or shortness of breath. He is drinking one beer per week. 02/19/24: He is here for follow-up. He has been drinking moderately. No chest pain or shortness of breath. Blood pressure is well controlled. 04/28/2025: He is here for follow-up. He is drinking up to 3-4 drinks per week. Denying any significant issues. No chest discomfort shortness of breath. [facility] Medical History History of blood transfusion Personal history of COVID-19 Osteoarthritis Obesity (BMI 30-39.9) Smoker Peripheral polyneuropathy Lumbar degenerative disc disease Mild anemia Gout Osteoarthritis of hip Impaired fasting glucose Benign essential hypertension Pure hypercholesterolemia Primary osteoarthritis of left hip Surgical History History of left hip replacement S/P total left hip arthroplasty (~06/26/22) Hx of colonoscopy History of surgery History of total right hip arthroplasty Family History Father CVD (cardiovascular disease) Mother Stroke Cancer Brother Healthy adult Sister Healthy adult Social History Household Members: Spouse Housing: House Are you a primary behavioral health care coordinator to a significant other at home: No Do you presently have visiting nurse or other home services: No 75 years or older and lives alone: No Alcohol intake: current Alcohol intake frequency: a few times a month Patient Tobacco Use Status: Current someday Tobacco user Tobacco use type: Cigar e-Cigarette/Vaping Use: Never Used Second Hand Smoke Exposure: No Advance Directives Date on File: 12/14/15 service: No Current occupational status: retired Cognitive needs: No Hearing needs: No Vision needs: No Review of Systems Const Denies chills, Denies fatigue, Denies fever(s), Denies frequent falls, Denies weakness, Denies weight gain and Denies weight loss ENT Denies dizziness Card Denies chest pain, Denies leg edema, Denies lightheadedness, Denies palpitations, Denies dyspnea and Denies dyspnea on exertion Resp Denies cough, Denies dyspnea and Denies dyspnea on exertion GI Denies hematochezia Musc Denies abnormal gait, Denies muscle weakness, Denies numbness, Denies radiating pain into limb and Denies tingling Neuro Denies abnormal gait, Denies dizziness, Denies frequent falls, Denies numbness, Denies tingling and Denies weakness Endo Denies fatigue and Denies palpitations Physical Exam Vital Signs: Last Vital Signs Pulse 65 04/28/25 09:13 BP 124/62 04/28/25 09:13 BMI result Body Mass Index 32.9 GENERAL APPEARANCE: in no acute distress, pleasant. NECK: no carotid bruit, no jugular venous distention. SKIN: no suspicious lesions, warm and dry. HEART: no murmurs, regular rate and rhythm. LUNGS: clear to auscultation bilaterally. ABDOMEN: soft, nontender. EXTREMITIES: no edema. PERIPHERAL PULSES: equal. NEUROLOGIC: No gross deficits, AAO X 3 Office Procedures EKG Details: Sinus rhythm 65 beats per minute with first-degree AV block IA interval 220 milliseconds, left axis deviation, nonspecific T-wave changes, QTC 411 milliseconds [id number], Complete Assessment & Plan Assessment & Plan (1) Benign essential hypertension: Code(s): I10 - Essential (primary) hypertension Category: Medical (2) Pure hypercholesterolemia: Code(s): E78.00 - Pure hypercholesterolemia, unspecified Category: Medical (3) Cardiomyopathy: Code(s): I42.9 - Cardiomyopathy, unspecified Category: Medical Qualifiers: Cardiomyopathy type: unspecified Qualified Code(s): I42.9 - Cardiomyopathy, unspecified Plan Pleasant 79-year-old gentleman who is here for follow-up. 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 By cutting back on alcohol is ejection fraction improved to low normal. Clinically did not develop any heart failure. We discussed again that he is sensitive to alcohol and if he drinks heavily he may develop cardiomyopathy again. Overall clinically stable. Same medications for now. Blood pressure control is good. LDL cholesterol is 111. Diet and exercise and repeat in 3 months. Follow-up with us in 1 year. Thank you for allowing me to participate in the care of your patient. Please feel free to contact me if you have any questions. Coding Level of Care Code Est Pt Level 4 (30001) Diagnoses Benign essential hypertension I10 Pure hypercholesterolemia E78.00 Cardiomyopathy, unspecified type I42.9 Cardiomyopathy type: unspecified CPT Codes EKG - CPT: 40479-[id number], Complete ([id number])
--- OUTSIDE RECORDS SUMMARY | 2025-04-28 09:32 | XMS_ITS | Patient Health Record ---
[facility] Address [address] [place] [address] Care Team Providers Care Photoresist Printer Name Role Phone Mayo PEREZ [place] Primary Care Provider Laura Pace Unavailable [phone] David Martin Unavailable [phone] Allergies No Known Allergies Reason For Referral [...] primary osteoarthritis of the ankle and/or foot (958357592) Primary osteoarthritis , right ankle and foot (M19.071) Active confirmed Problem Acquired hammer toe of right foot (3788572663783806 ) Other hammer toe(s) (acquired), right foot (M20.41) Active confirmed Problem Acquired hammer toe of right foot (7940989688493632 ) Hammer toe of right foot (M20.41) Active confirmed Improvement Problem Acquired hammer toe of left foot (1436565303155173 ) Hammer toe of left foot (M20.42) Active confirmed Improvement Problem Spasm (20733297) Extensor tendon tightness, contracture (M62.40) Active confirmed Improvement Vital Signs Blood pressure diastolic 70 mm Hg 05/26/2024 Height 6ft 1in in 05/26/2024 Blood pressure systolic 130 mm Hg 05/26/2024 Weight 225 lbs 05/26/2024 BMI 29.68 kg/m2 05/26/2024 Procedures Procedure Date Ordered Date Performed Result Body Sit e 77165 - Tenotomy, open flexor 05/12/2024 N/A Encounters Encounter Location Date Provider Diagnosis [facility] [address] 05/12/2024 Laura Chan Hammer toe of right foot M20.41 [facility] [address] [address] 05/26/2024 Laura Chan Hammer toe of right foot M20.41 Assessments Encounter Date Diagnosis (ICD Code) Assessment Notes Treatment Notes Treatment Clinical Notes Section Notes 05/12/2024 Hammer toe of right foot (ICD-10 - M20.41) 05/26/2024 Hammer toe of right foot (ICD-10 - M20.41) Improvement Plan Of Treatment Pending Test Test Name Order Date X ray : Foot, right 3V 02/26/2024 54183 - Tenotomy, open flexor 05/12/2024 Next Appt Details Provider Name:Laura rosales, 05/12/2025 03:15:00 PM, [address] [place] [address], [phone], Insurance Providers Payer Name Payer Address Payer Phone Subscriber Number Group Number Insured Name Patient Relationship to Insured Coverage Start Date Coverage End Date [employer] 65 Medicare Preferred [address] [place] [address] [phone] [id number] George Bales Self - patient is the insured Medical (General) History Medical History History ICD Code Arthritis Back,Hip,and Knee pain Gout High blood pressure Chicken pox Bone implants/screws Transfusions Heart disease Surgical History Surgery Date(Month/Year) right hip replacement 11/2015 left hip replacement 2021
== END 2025-04-28 09:29 | disposition home or self-care (01) ==
LOC: HO.HCS 08:54
PROVIDERS: PCP Internal Medicine; Visit Provider Internal Medicine Cardiovascular Disease
DX: I10 Essential (primary) hypertension (principal); E78.00 Pure hypercholesterolemia, unspecified; I42.9 Cardiomyopathy, unspecified
CPT/HCPCS: 93010; 99214

== ENCOUNTER → 2025-04-28 08:53 | Outpatient (BNVA) | payer MEDICARE, SELFPAY | PROVIDERS: PCP Internal Medicine; Visit Provider Internal Medicine Cardiovascular Disease | DX: I10 Essential (primary) hypertension (principal); I42.9 Cardiomyopathy, unspecified; E78.00 Pure hypercholesterolemia, unspecified; I44.0 Atrioventricular block, first degree; I44.7 Left bundle-branch block, unspecified; R94.31 Abnormal electrocardiogram [ECG] [EKG] | CPT/HCPCS: 93005; 99212 ==